=== PATIENT | female | born 1955 | race African-American/Black ===

== ENCOUNTER 2018-01-23 13:29 | Emergency (ER) | payer OTHER ==
[2018-01-23 13:47] VITALS: TEMP 98.4; BMI 35.8
--- NOTE | 2018-01-23 15:01 | PDOC ---
History of Present Illness - General History Source: Patient, Family Exam Limitations: No Limitations - History of Present Illness Initial Comments: 01/23/18 17:00 Patient is a 62 year old female with a significant past medical history of hypertension, hyperlipidemia, AODM, bowel obstruction in 2004 status post surgery, course complicated with an OH, CAD status post CABG 4 vessel, in 2003, complicated by sternal wound infection and repeat sternotomy who presents to the ED with complaints of bilateral upper extremity and lower extremity edema that began 1 week ago. As per patient's daughter, patient began to complain of bilateral hand swelling and pain yesterday afternoon as well as this morning, prompting her to bring the patient into the ED for further evaluation. Denies chest pain, Sob. Denies nausea, vomiting. Denies fevers, chills. Denies contact with a sick contact, out of state travelling. Denies diarrhea, constipation, dysuria, hematuria. Denies any other symptoms. Allergies: None Social history: No smoking, No alcohol. No illicit drugs. Surgical history: 4 bypass cardiac, Gastric obstruction. PMD: Dr. Terrell Mustafa. <Von Mendoza - Last Filed: 01/23/18 17:00> <Cl Martin - Last Filed: 01/23/18 17:44> - General Chief Complaint: Edema Stated Complaint: DIZZINESS, SWOLLEN HANDS Time Seen by Provider: 01/23/18 14:32 Past History <Von Mendoza - Last Filed: 01/23/18 17:00> - Past Medical History Cardiac Disorders: Yes (CABG) COPD: No Diabetes: Yes GI Disorders: Yes (BOWEL OBSTRUCTION) HTN: Yes Hypercholesterolemia: Yes - Surgical History Abdominal Surgery: Yes (OBSTRUCTION) Cardiac Surgery: Yes (4 BYPASS) - Suicide/Smoking/Psychosocial Hx Smoking History: Former smoker Have you smoked in the past 12 months: No If you are a former smoker, when did you quit?: 8 YEARS Information on smoking cessation initiated: No Hx Alcohol Use: No Drug/Substance Use Hx: No Substance Use Type: None <Cl Martin - Last Filed: 01/23/18 17:44> - Past Medical History Allergies/Adverse Reactions: Allergies Allergy/AdvReac Type Severity Reaction Status Date / Time No Known Allergies Allergy Verified 01/23/18 13:38 Home Medications: Ambulatory Orders Furosemide [Lasix -] 20 mg PO DAILY 05/23/14 Rosuvastatin Calcium [Crestor] 20 mg PO DAILY 05/23/14 Metformin HCl [Glucophage] 1,000 mg PO BID 09/25/16 Olmesartan Medoxomil [Benicar -] 20 mg PO DAILY 09/25/16 Acetaminophen [Tylenol .Regular Strength -] 650 mg PO Q6H PRN #0 tablet Insulin Sliding Scale [Novolog Vial Sliding Scale -] 1 vial SQ ACHS units 09/27 Aspirin [Aspirin EC] 81 mg PO DAILY 01/23/18 Furosemide [Lasix] 20 mg PO DAILY #15 tablet 01/23/18 Insulin (Levemir) [Levemir Flexpen -] 40 units SQ BID 01/23/18 Insulin Degludec [Tresiba Flextouch U-100] 40 units SQ BID 01/23/18 Insulin Glargine,Hum.rec.anlog [Lantus Solostar PEN -] 30 units SQ TID 01/23/18 Nifedipine [Procardia Xl] 30 mg PO DAILY 01/23/18 Pregabalin [Lyrica -] 50 mg PO TID 01/23/18 Review of Systems - Review of Systems Able to Perform ROS?: Yes Comments:: 01/23/18 17:00 ROS: A complete review of 10 out of 10 review of systems is taken and is negative apart from what is previously mentioned below and in the HPI. <Von Mendoza - Last Filed: 01/23/18 17:00> *Physical Exam - Vital Signs Last Vital Signs Temp Pulse Resp BP Pulse Ox 98.4 F 71 18 128/94 100 01/23/18 13:38 01/23/18 16:26 01/23/18 16:26 01/23/18 16:26 01/23/18 16:26 - Physical Exam Comments: 01/23/18 17:00 Vitals: Triage Vital signs reviewed General Appearance: no acute distress, well nourished well developed Head: Atraumatic Eyes: Pupils equal reactive round, extraocular movement intact Ears: TMs normal bilaterally Nose: Nares patent bilaterally; no nasal congestion Throat: Posterior oropharynx without erythema, mucous membranes moist Neck: Supple; No Nuchal rigidity Chest Wall: Nontender Cardiac: Regular rate and rhythm, no murmurs, no rubs, no gallops Lungs: Clear to auscultation bilateral, good air movement bilaterally Abdomen: Soft, non distended, normal bowel sounds, non tender to palpation Genitourinary: Rectal: Exam deferred Extremities: +Moderate 2+ pitting edema. Full range of motion to all extremities, no cyanosis, clubbing, Skin: Warm and dry, no rashes or lesions, no rash, no petechiae Neuro: AOX3; Cranial Nerves 2-12 grossly intact, Strength intact to all extremities, Sensation intact to all extremities, gait normal Psych: Normal mood, normal affect <Von Mendoza - Last Filed: 01/23/18 17:00> - Vital Signs Last Vital Signs Temp Pulse Resp BP Pulse Ox 98.4 F 90 20 98 01/23/18 13:38 01/23/18 13:38 01/23/18 13:38 01/23/18 13:38 01/23/18 13:38 <Cl Martin - Last Filed: 01/23/18 17:44> Heart Score/ECG Review - ECG Impressions Comment:: 01/23/18 15:43 Sinus rhythm T-wave inversions laterally no ST elevations <Cl Martin - Last Filed: 01/23/18 17:44> ED Treatment Course - LABORATORY CBC & Chemistry Diagram: 01/23/18 15:16 01/23/18 15:16 - ADDITIONAL ORDERS Additional order review: Laboratory Results 01/23/18 15:16 Sodium 140 Potassium 3.9 Chloride 105 Carbon Dioxide 30 Anion Gap 5 L BUN 17 Creatinine 0.9 Random Glucose 158 H Calcium 9.2 B-Natriuretic Peptide 62.91 01/23/18 15:16 RBC 4.59 MCV 86.8 MCHC 34.2 RDW 13.8 MPV 8.3 Neutrophils % 58.7 Lymphocytes % 30.9 Monocytes % 7.1 Eosinophils % 2.5 Basophils % 0.8 <Von Mendoza - Last Filed: 01/23/18 17:00> - LABORATORY CBC & Chemistry Diagram: 01/23/18 15:16 01/23/18 15:16 <Cl Martin - Last Filed: 01/23/18 17:44> Medical Decision Making - Medical Decision Making 62 years old past medical significant for hypertension hyperlipidemia OH CAD status post CABG with mild CHF presents with several day history of mild hand swelling lower extremity swelling in the context of running out of her Lasix. She had very nonspecific seconds of chest discomfort yesterday Here in the emergency department she is well-appearing in no apparent distress. We will obtain EKG troponin BNP labs and reassess EKG demonstrates T-wave inversions laterally there are no changes noted in comparison to an EKG performed August 2016 Although her BNP is normal I believe her symptomatology to be secondary to mild fluid retention secondary to being off her Lasix Her troponin is negative she is otherwise asymptomatic We'll double her Lasix dose today and tomorrow I will prescribe a two-week prescription for Lasix as she has ran out and advised her to follow-up with her doctor next week. She will return to the emergency department for any severe returning or worsening chest pain Findings, the need for follow-up, strict return instructions discussed with patient. <Cl Martin - Last Filed: 01/23/18 17:44> *DC/Admit/Observation/Transfer - Attestations Scribe Attestion: 01/23/18 17:01 Documentation prepared by Von Mendoza, acting as certified court/medical interpreter for Cl Martin MD, /DO. <Von Mendoza - Last Filed: 01/23/18 17:00> - Discharge Dispostion Admit: No <Cl Martin - Last Filed: 01/23/18 17:44> Diagnosis at time of Disposition: Hand swelling Qualifiers: Laterality: bilateral Qualified Code(s): M79.89 - Other specified soft tissue disorders - Prescriptions Prescriptions: Furosemide [Lasix] 20 mg PO DAILY #15 tablet - Referrals Referrals: Terrell Mustafa MD [Primary Care Provider] -
[2018-01-23 15:50] LABS: BASO % 0.8 % (0-2.0); EOS % 2.5 % (0-4.5); HEMATOCRIT 39.8 % (32.4-45.2); HEMOGLOBIN 13.6 GM/dL (10.7-15.3); LYMPH % 30.9 % (8-40); MCH 29.7 pg (25.7-33.7); MCHC 34.2 g/dl (32.0-36.0); MEAN CELL VOLUME 86.8 fl (80-96); MEAN PLT VOLUME 8.3 fl (7.5-11.1); MONO % 7.1 % (3.8-10.2); NEUT % 58.7 % (42.8-82.8); PLATELET COUNT 216 K/MM3 (134-434); RBC 4.59 M/mm3 (3.60-5.2); RDW 13.8 % (11.6-15.6); WHITE BLOOD COUNT 6.7 K/mm3 (4.0-10.0)
[2018-01-23 16:16] LABS: ANION GAP 5 (8-16); BLOOD UREA NITROGEN 17 mg/dL (7-18); CALCIUM 9.2 mg/dL (8.5-10.1); CHLORIDE 105 mmol/L (98-107); CO2 30 mmol/L (21-32); CREATININE 0.9 mg/dL (0.55-1.02); GLUCOSE,RANDOM 158 mg/dL (74-106); SODIUM 140 mmol/L (136-145)
[2018-01-23 16:18] LABS: N-TERMINAL BNP 62.91 pg/ml (5-125)
[2018-01-23 16:27] VITALS: BP 128/94; PULSE 71
[2018-01-23 16:52] LABS: POTASSIUM 3.9 mmol/L (3.5-5.1)
[2018-01-23] MEDS ORDERED: FUROSEMIDE 40 MG TABLET (FP) PO ONE (17:37)
[2018-01-23] MEDS ORDERED: FUROSEMIDE 40 MG TABLET (FP) ONE (17:45)
--- NOTE | 2018-01-27 11:44 | EKG ---
Test Reason : Blood Pressure : / mmHG Vent. Rate : 074 BPM Atrial Rate : 074 BPM P-R Int : 162 ms QRS Dur : 094 ms QT Int : 424 ms P-R-T Axes : 050 024 107 degrees QTc Int : 470 ms NORMAL SINUS RHYTHM T WAVE ABNORMALITY, CONSIDER LATERAL ISCHEMIA PROLONGED QT ABNORMAL ECG WHEN COMPARED WITH ECG OF 23-MAY-2014 11:53, NO SIGNIFICANT CHANGE WAS FOUND Confirmed by MD Juan, Sam ([id number]) on 01/27/2018 11:44:01 AM Referred By: Confirmed By:Sam Martinez MD
== END 2018-01-23 17:55 | disposition home or self-care (01) ==
LOC: JER 13:29
DX: M79.89 Other specified soft tissue disorders (principal); I10 Essential (primary) hypertension; E78.5 Hyperlipidemia, unspecified
CPT/HCPCS: 36415; 80048; 83880; 84484; 85025; 93005; 93010; 99281-25

== ENCOUNTER 2019-03-10 12:02 | Inpatient (IN) | payer OTHER ==
[2019-03-10 12:22] VITALS: BMI 36.6
--- NOTE | 2019-03-10 12:34 | PDOC ---
History of Present Illness - General Chief Complaint: Pain Stated Complaint: LOWER BACK PAIN SINCE THIS AM WITH URINARY HESITA Time Seen by Provider: 03/10/19 12:23 History Source: Patient Exam Limitations: No Limitations - History of Present Illness Initial Comments: 03/10/19 13:06 HPI 63y F CAD s/p CABG, IDDM, HTN, HL, hx of bowel obstruction in 2003 s/p resection , course complicated with an IN, CAD status post CABG 4 vessel, in 2003, complicated by sternal wound infection and repeat sternotomy presenting with acute onset of diffuse abdominal pain and mid back pain since today at 12pm. Denies trauma, but she was cleaning the house this morning and moving objects. +diffuse abdominal pain, described as sharp, nonradiating, +nausea; no vomiting or diarrhea. +constipation and no flatus, last BM 3 days ago, which was hard and brown. Denies alleviating or exacerbating factors. She also notes middle back pain, worse with movement and bending. Denies fever, chills, chest pain, SOB, palpitation, dizziness, weakness, V, D, leg swelling, No sick contacts or travel. No new changes in medications. No suspicious food intake Allergies: None Past Medical History: CAD s/p CABG, IDDM, HTN, HL, hx of bowel obstruction in 2003 s/p resection, course complicated with an IN, CAD status post CABG 4 vessel , in 2003, complicated by sternal wound infection and repeat sternotomy Social history: Lives with family. No tobacco, ETOH or drug use. Surgical history: 4 bypass cardiac, Gastric obstruction s/p resection Meds: as documented in EMR PMD: Dr Jose Schwartz Review of systems Constitutional: no fevers or chills. HEENT: no headache or dizziness. +nasal congestion. CVS: no cp or syncope. Resp: no sob. No cough. Gastrointestinal: +abdominal pain and nausea, +constipation. No diarrhea or bloody stools Genitourinary: no urinary sx, hematuria. MUSCULOSKELETAL: No joint pain and swelling. No neck pain,. +back pain. SKIN: no redness or skin changes, no discharge, no rash. No wounds. Hematologic: no easy bruising/bleeding. NEUROLOGIC: No headache, dizziness, LOC or altered mental status. No weakness, numbness or tingling. Psych: no anxiety or depression Allergic/Immunologic: no allergies All other systems reviewed and negative, or as documented in HPI. Physical exam: General: Well appearing, awake and alert, NAD. HEENT: NCAT, PERRL, EOMI, clear conjunctiva, anicteric, clear oropharynx, no oral lesions.. Neck: neck supple, FROM Resp: CTAB, normal and even respirations, no respiratory distress CVS: RRR, no murmurs, 2+ peripheral pulses throughout, no peripheral edema Chest: midline sternotomy scar, healed Abdomen: soft, obese, diffusely tenderness. Midline vertical surgical scar healed, +ventral and umbilical hernia, reducible and soft, tender to palpation, no skin changes or e/o incarceration.. Back: +mid thoracic back TTP, normal inspection and ROM, no CVAT. MSK: no edema, MILLER x4, ROM intact. No clubbing or cyanosis. normal bulk and tone. Neuro: alert, no focal neuro deficits. Skin: warm and well perfused, cap refill <2 sec, normal color 03/10/19 17:55 03/10/19 17:56 Past History - Past Medical History Allergies/Adverse Reactions: Allergies Allergy/AdvReac Type Severity Reaction Status Date / Time No Known Allergies Allergy Verified 03/10/19 21:25 Home Medications: Ambulatory Orders Aspirin 81 mg PO DAILY 03/10/19 Atorvastatin Ca [Lipitor] 40 mg PO HS 03/10/19 Furosemide [Lasix] 20 mg PO DAILY 03/10/19 Insulin Glargine,Hum.rec.anlog [Toujeo Solostar] 20 unit SQ DAILY 03/10/19 Metformin HCl [Metformin HCl ER] 500 mg PO BID 03/10/19 Olmesartan/Hydrochlorothiazide [Olmesartan-Hctz 20-12.5 mg Tab] 1 each PO DAILY 03/10/19 Semaglutide [Ozempic] 0.25 mg SQ WEEKLY 03/10/19 Docusate Sodium [Colace -] 100 mg PO BID #60 capsule 03/15/19 Cardiac Disorders: Yes (CABG 3 VESSELS) COPD: No Diabetes: Yes GI Disorders: Yes (BOWEL OBSTRUCTION) HTN: Yes Hypercholesterolemia: Yes - Surgical History Abdominal Surgery: Yes (OBSTRUCTION) Cardiac Surgery: Yes (3 BYPASS) - Suicide/Smoking/Psychosocial Hx Smoking History: Never smoked Have you smoked in the past 12 months: No If you are a former smoker, when did you quit?: 8 YEARS Information on smoking cessation initiated: No Hx Alcohol Use: Yes (RARE) Drug/Substance Use Hx: No Substance Use Type: None *Physical Exam - Vital Signs Last Vital Signs Temp Pulse Resp BP Pulse Ox 97.8 F 81 18 166/85 97 03/10/19 12:03 03/10/19 12:03 03/10/19 12:03 03/10/19 12:03 03/10/19 12:03 ED Treatment Course - LABORATORY CBC & Chemistry Diagram: 03/15/19 06:00 03/15/19 06:00 Medical Decision Making - Medical Decision Making 03/10/19 13:23 hpi as documented VS wnl, reviewed DDx abdominal pain: Renal colic, biliary colic, metabolic/electrolyte derangements. GERD, PUD, esophageal spasm, pancreatitis, hepatitis, constipation , colitis, gastroenteritis, cholecystitis, UTI, pyelonephritis, ileus, SBO, medication side effect, hernia, appendicitis, diverticulitis, mesenteric ischemia, AAA. meds given in the ED: IVF, analgesia, antiemetic, PO contrast due to bowel altering surgery in the past. tolerating PO contrast, no episodes of emesis. labs and lytes normal, normal wbc ct. K mildly low 3.4, repleted. lactic normal less likely ischemic process UA with nitrites and rocío with UTI/infection, f/u cultures, likely E coli 'UTI treated with ceftriaxone for now. no prior urine culture or sensitivities analgesia and GI cocktail given, IVF left EJ placed by tx for IV access. USGIV infiltrated prior to CT imaging. CT a/p to eval for abdominal pathology, infection. ventral hernia noted, dilated small bowel loops. up to 2.6cm, borderline for obstruction. ventral hernia defect noted, with bowel entering the sac. moderate stool in the colon, no free air or fluid; dilated CBD post surg delayed CT recommended with the pO contrast. repeat CT pending, awaiting tech spoke with Dr Hassan, supervisor photocomposition for Dr Schwartz, does not admit to [facility]. [facility] and contacted Dr Aguilar for surg cs for suspected ventral hernia/partial SBO with repeat PO contrast imaging keep npo, bowel rest, serial exams and consultation no ngt for now, no vomiting dispo: admit for partial SBO, ventral /incisional hernia defect, surg cs, serial exams, analgesia and UTI admitting to hospitalist service at , Dr Lainez service. s/o LINDA Hernandez. 03/10/19 19:09 03/10/19 19:15 03/10/19 19:23 03/16/19 12:24 *DC/Admit/Observation/Transfer Diagnosis at time of Disposition: Acute UTI (urinary tract infection), SBO (small bowel obstruction), Ventral hernia - Discharge Dispostion Condition at time of disposition: Stable Decision to Admit order: Yes Decision to Admit order Date/Time: 03/10/19 19:09 Decision to Admit Order Category Date Time Status Decision to Admit to Hospital Routine Admission 03/10/19 18:11 Active - Referrals - Patient Instructions - Post Discharge Activity
[2019-03-10] MEDS ORDERED: ACETAMINOPHEN 1000 MG/100 ML VIAL (NON FORMULARY) IVPB ONE (12:37)
[2019-03-10] MEDS ORDERED: FAMOTIDINE 20 MG/50 ML IVPB 20 MG/50 ML MG IVPB ONE ×2 (12:37→13:19)
[2019-03-10] MEDS ORDERED: SODIUM CHLORIDE 1,000 ML IV STA (12:37)
[2019-03-10] MEDS ORDERED: ONDANSETRON 4 MG/2 ML VIAL IVPUSH ONE (12:38)
[2019-03-10] MEDS ORDERED: ACETAMINOPHEN INJECTION 100 ML IVPB ONE (13:19)
[2019-03-10] MEDS ORDERED: ONDANSETRON 4 MG/2 ML VIAL ONE (13:19)
[2019-03-10 14:34] LABS: ALBUMIN 4.2 g/dl (3.4-5.0); ALK PHOS 70 U/L (45-117); ANION GAP 9 MMOL/L (8-16); BILIRUBIN,TOTAL 0.9 mg/dl (0.2-1); BLOOD UREA NITROGEN 19 mg/dl (7-18); CALCIUM 9.6 mg/dl (8.5-10); CHLORIDE 101 mmol/L (98-107); CO2 28 mmol/L (21-32); CREATININE 0.9 mg/dl (0.55-1.3); GLUCOSE,RANDOM 127 mg/dl (74-106); POTASSIUM 3.4 mmol/L (3.5-5.1); SGOT/AST 24 U/L (15-37); SGPT/ALT 20 U/L (13-61); SODIUM 138 mmol/L (136-145); TOT PROT 7.2 g/dl (6.4-8.2)
[2019-03-10 14:40] LABS: BASO % 0.3 % (0-2.0); EOS % 2.1 % (0-4.5); HEMATOCRIT 41.6 % (32.4-45.2); HEMOGLOBIN 13.5 GM/dl (10.7-15.3); MCH 29.1 pg (25.7-33.7); MCHC 32.5 g/dl (32.0-36.0); MEAN CELL VOLUME 89.5 fl (80-96); MEAN PLT VOLUME 8.6 fl (7.5-11.1); MONO % 6.1 % (3.8-10.2); NEUT % 71.5 % (42.8-82.8); PLATELET COUNT 203 K/MM3 (134-434); RBC 4.64 M/mm3 (3.60-5.2); RDW 12.2 % (11.6-15.6)
[2019-03-10] MEDS ORDERED: POTASSIUM CHLORIDE TABS 20 MEQ TABLET.ER (FP) PO ONE ×2 (14:51→15:50)
[2019-03-10] MEDS ORDERED: CEFTRIAXONE 1,000 MG in DEXTROSE 5%-WATER - 50 ML IVPB ONE ×2 (16:51→19:07)
[2019-03-10 16:53] LABS: LIPASE 43 U/L (73-393)
[2019-03-10] MEDS ORDERED: CEPHALEXIN MONOHYDRATE 500 MG CAPSULE (UD) PO ONE (17:33)
[2019-03-10] MEDS ORDERED: CEPHALEXIN MONOHYDRATE 500 MG CAPSULE (UD) ONE (17:42)
[2019-03-10] MEDS ORDERED: cefTRIAXone SODIUM 1 GM VIAL ONE (19:09)
[2019-03-10] MEDS ORDERED: SODIUM CHLORIDE 1,000 ML IV SCH (19:45)
[2019-03-10] MEDS ORDERED: cloNIDine HCL 0.1 MG TABLET PO ONE (19:57)
--- NOTE | 2019-03-10 20:02 | HOSP ---
Subjective - Review of Symptoms Events since last encounter: Spoke with Dr. Gasca. Patient has possible SBO and dilated CBD and may need MRCP /ERCP according to initial CT read by Dr. Guerrero. [facility] has no GI coverage at this time and no OR until the morning. Patient needs to be transferred to [facility]. Physical Examination Vital Signs: Vital Signs Temperature 98.3 F 03/10/19 19:35 Pulse Rate 75 03/10/19 19:35 Respiratory Rate 18 03/10/19 19:35 Blood Pressure 216/95 H 03/10/19 19:35 O2 Sat by Pulse Oximetry (%) 99 03/10/19 19:35 Labs: CBC, BMP 03/10/19 14:05 03/10/19 14:00
[2019-03-10 20:22] LABS: EPITHELIAL CELLS FEW /hpf
--- NOTE | 2019-03-10 20:24 | CONSULT ---
Consult Consult Specialty:: General Surgery Reason for Consultation:: SBO? - History of Present Illness Chief Complaint: abdominal pain History of Present Illness: 63yo female PMH CAD s/p CABG, IDDM, HTN, HLD, Chronic abdominal pain and constipation, ventral incsional hernia since exploratory laparotomy in 2003 for reported bowel obstruction at [facility] in [place], [place], CAD status post CABG 4 vessel, in 2003, complicated by sternal wound infection and repeat sternotomy presenting with acute onset of diffuse abdominal pain and mid back pain since today at 12pm. Denies trauma, but she was cleaning the house this morning and moving objects. Abdominal pain, described as sharp, focal to the umbilcus and midline incisonal hernia, nonradiating, +nausea; no vomiting or diarrhea. + constipation and no flatus, last BM 3 days ago, which was hard and brown. Denies alleviating or exacerbating factors. She also notes middle back pain, worse with movement and bending. we were asked to assess. - History Source History Provided By: Patient, Medical Record Limitations to Obtaining History: No Limitations - Past Medical History Cardio/Vascular: Yes: CAD, HTN, HI, Hyperlipdemia, Other Gastrointestinal: Yes: Other (SBO s/p surgical resection 2003 [facility]) Infectious Disease: Yes: Other (sternal wound infection 2003) Endocrine: Yes: Diabetes Mellitus - Past Surgical History Past Surgical History: Yes: CABG - Alcohol/Substance Use Hx Alcohol Use: Yes (RARE) - Smoking History Smoking history: Never smoked Have you smoked in the past 12 months: No If you are a former smoker, when did you quit?: 8 YEARS - Social History ADL: Independent History of Recent Travel: No Home Medications - Allergies Allergies/Adverse Reactions: Allergies Allergy/AdvReac Type Severity Reaction Status Date / Time No Known Allergies Allergy Verified 03/06/18 14:06 - Home Medications Home Medications: Ambulatory Orders Aspirin 81 mg PO DAILY 03/10/19 Atorvastatin Ca [Lipitor] 40 mg PO HS 03/10/19 Furosemide [Lasix] 20 mg PO DAILY 03/10/19 Insulin Glargine,Hum.rec.anlog [Ivan Solostar] 20 unit SQ DAILY 03/10/19 Metformin HCl [Metformin HCl ER] 500 mg PO BID 03/10/19 Olmesartan/Hydrochlorothiazide [Olmesartan-Hctz 20-12.5 mg Tab] 1 each PO DAILY 03/10/19 Semaglutide [Ozempic] 0.25 mg SQ WEEKLY 03/10/19 Review of Systems - Review of Systems Constitutional: denies: Chills, Fever, Malaise Eyes: denies: Blind Spots, Recent Change in Vision HENT: denies: Difficult Swallowing, Throat Pain Neck: denies: Pain on Movement, Tenderness Cardiovascular: denies: Chest Pain, Palpitations Respiratory: denies: Cough, SOB Gastrointestinal: reports: Abdominal Pain, Bloating, Constipation, Nausea. denies: Diarrhea, Vomiting Genitourinary: denies: Burning, Discharge, Dysuria Breasts: reports: No Symptoms Reported. denies: Pain Musculoskeletal: denies: Extremity Pain, Muscle Cramps Integumentary: denies: Erythema, Rash, Wound Neurological: denies: Seizure, Syncope Endocrine: denies: Unexplained Weight Gain, Unexplained Weight Loss Hematology/Lymphatic: denies: Easily Bruised, Excessive Bleeding Psychiatric: denies: Anxiety, Depression Physical Exam Vital Signs: Vital Signs Temperature 98.3 F 03/10/19 19:35 Pulse Rate 78 03/10/19 19:57 Respiratory Rate 18 03/10/19 19:57 Blood Pressure 243/112 H 03/10/19 19:57 O2 Sat by Pulse Oximetry (%) 98 03/10/19 19:57 Constitutional: Yes: No Distress, Calm, Obese Eyes: Yes: Conjunctiva Clear, EOM Intact HENT: Yes: Atraumatic, Normocephalic Neck: Yes: Supple, Trachea Midline Cardiovascular: Yes: Regular Rate and Rhythm, S1, S2 Respiratory: Yes: Regular, CTA Bilaterally Gastrointestinal: Yes: Normal Bowel Sounds, Soft, Abdomen, Obese, Hernia ( midline periumbilical incsional hernia, tender but reducible), Tenderness Renal/: No: CVA Tenderness - Left, CVA Tenderness - Right Breast(s): No: Discharge from Nipple, Nipple Inversion Musculoskeletal: No: Muscle Pain, Muscle Weakness Extremities: No: Cool, Cyanosis Edema: No Peripheral Pulses WNL: Yes Integumentary: No: Incision, Jaundice, Venous Stasis Changes Wound/Incision: Yes: Clean/Dry, Well Approximated Neurological: Yes: Alert, Oriented Psychiatric: Yes: Alert, Oriented Labs: CBC, BMP 03/10/19 14:05 03/10/19 14:00 Imaging - Results Cat Scan: Report Reviewed, Image Reviewed (Contrast is clear transiting the bowel in the hernia and can be seen in small caliber loops of small intestines distal to the hernia) Problem List - Problems (1) Incisional hernia of anterior abdominal wall with obstruction Assessment/Plan: 63yo female MMP andominal pain, constipation, long standing incisional hernia after abdominal surgeries, with SBO on imaging. no peritonitis on exam, reducible hernia with some discomfort. No leukocytosis, no peritonitis. Favor obsrervation and serial exams. No emergency surgical intervention at this time. NPO and IVF hydration NGT decompression repeat labs adequate analgesia Agree with delayed CT scan serial exams repeat abd xray in AM GI for bowel regimen for contipation (only on colace) and screening colonoscopy will follow Code(s): K43.0 - INCISIONAL HERNIA WITH OBSTRUCTION, WITHOUT GANGRENE (2) Constipation Code(s): K59.00 - CONSTIPATION, UNSPECIFIED (3) Obesity (BMI 30-39.9) Code(s): E66.9 - OBESITY, UNSPECIFIED (4) SBO (small bowel obstruction) Code(s): K56.609 - UNSP INTESTNL OBST, UNSP TO PARTIAL VERSUS COMPLETE OBST (5) Diabetes Code(s): E11.9 - TYPE 2 DIABETES MELLITUS WITHOUT COMPLICATIONS (6) Hypertension Code(s): I10 - ESSENTIAL (PRIMARY) HYPERTENSION
--- NOTE | 2019-03-11 03:51 | HP ---
CHIEF COMPLAINT: abdominal pain for 2 days PCP: HISTORY OF PRESENT ILLNESS: 63 year old female with PMH of SC/CAD s/p CABG X4 in 2003 complicated by sternal wound infection and repeat sternotomy,IDDM, HTN, HLD, chronic abdominal pain and constipation, ventral incsional hernia since exploratory laparotomy in 2003 for reported bowel obstruction at [facility], who presented to [facility] with acute onset of diffuse abdominal pain and mid back pain. She denied fever, chest pain or shortness of breath. She was transferred to [facility] for a SBO. She was seen by Surgery and she is currently NPO and recommended NG tube for decompression. No surgical interventions recommended at this time. She is awaiting a GI consultation. She was also found to have a UTI and received a dose of IV ceftriaxone. She was admitted for further medical management. Recent Travel: denies PAST MEDICAL HISTORY: hyperlipidemia diabetes mellitus PAST SURGICAL HISTORY: CABG X4 in 2003 in [facility] ventral incsional hernia since exploratory laparotomy in 2003 for reported bowel obstruction at [facility] Social History: Smoking:denies Alcohol:denies Drugs: denies Family History: noncontributory Allergies No Known Allergies Allergy (Verified 03/10/19 21:25) HOME MEDICATIONS: Home Medications Medication Instructions Recorded Aspirin 81 mg PO DAILY 03/10/19 Atorvastatin Ca [Lipitor] 40 mg PO HS 03/10/19 Furosemide [Lasix] 20 mg PO DAILY 03/10/19 Insulin Glargine,Hum.rec.anlog 20 unit SQ DAILY 03/10/19 [Ivan Simons] Metformin HCl [Metformin HCl ER] 500 mg PO BID 03/10/19 Olmesartan/Hydrochlorothiazide 1 each PO DAILY 03/10/19 [Olmesartan-Hctz 20-12.5 mg Tab] Semaglutide [Ozempic] 0.25 mg SQ WEEKLY 03/10/19 REVIEW OF SYSTEMS CONSTITUTIONAL: Absent: fever, chills, diaphoresis, generalized weakness, malaise, loss of appetite, weight change HEENT: Absent: rhinorrhea, nasal congestion, throat pain, throat swelling, difficulty swallowing, mouth swelling, ear pain, eye pain, visual changes CARDIOVASCULAR: Absent: chest pain, syncope, palpitations, irregular heart rate, lightheadedness , peripheral edema RESPIRATORY: Absent: cough, shortness of breath, dyspnea with exertion, orthopnea, wheezing, stridor, hemoptysis GASTROINTESTINAL: Absent: abdominal pain, abdominal distension, nausea, vomiting, diarrhea, constipation, melena, hematochezia GENITOURINARY: Absent: dysuria, frequency, urgency, hesitancy, hematuria, flank pain, genital pain MUSCULOSKELETAL: Absent: myalgia, arthralgia, joint swelling, back pain, neck pain SKIN: Absent: rash, itching, pallor HEMATOLOGIC/IMMUNOLOGIC: Absent: easy bleeding, easy bruising, lymphadenopathy, frequent infections ENDOCRINE: Absent: unexplained weight gain, unexplained weight loss, heat intolerance, cold intolerance NEUROLOGIC: Absent: headache, focal weakness or paresthesias, dizziness, unsteady gait, seizure, mental status changes, bladder or bowel incontinence PSYCHIATRIC: Absent: anxiety, depression, suicidal or homicidal ideation, hallucinations. PHYSICAL EXAMINATION Vital Signs - 24 hr 03/10/19 03/10/19 03/10/19 12:03 16:40 19:35 Temperature 97.8 F 98.3 F Pulse Rate 81 Pulse Rate [ 74 75 Right Radial] Respiratory 18 18 18 Rate Blood Pressure 166/85 Blood Pressure 194/87 H 216/95 H [Right Arm] O2 Sat by Pulse 97 98 99 Oximetry (%) 03/10/19 03/10/19 03/10/19 19:57 20:55 21:56 Temperature 98.5 F Pulse Rate Pulse Rate [ 78 72 72 Right Radial] Respiratory 18 16 18 Rate Blood Pressure Blood Pressure 243/112 H 194/89 H 188/100 H [Right Arm] O2 Sat by Pulse 98 98 98 Oximetry (%) 03/10/19 03/10/19 23:08 23:45 Temperature 97.5 F L Pulse Rate 74 Pulse Rate [ 77 Right Radial] Respiratory 18 20 Rate Blood Pressure 111/59 L Blood Pressure 156/78 [Right Arm] O2 Sat by Pulse 99 98 Oximetry (%) GENERAL: awake, alert, and fully oriented, in no acute distress. HEAD: normal with no signs of trauma. EYES: pupils equal, round and reactive to light NECK: normal range of motion, supple LUNGS: breath sounds equal, clear to auscultation bilaterally no wheezes and no crackles no accessory muscle use HEART: regular rate and rhythm, normal S1 and S2 ABDOMEN: no acute abdomen slightly tender on palpation MUSCULOSKELETAL: normal range of motion at all joints UPPER EXTREMITIES: 2+ pulses warm well-perfused no cyanosis no clubbing no peripheral edema LOWER EXTREMITIES: 2+ pulses warm well-perfused no calf tenderness NEUROLOGICAL: normal speech PSYCHIATRIC: cooperative. SKIN: warm, dry, normal turgor, no rashes or lesions noted, normal capillary refill. Laboratory Results - last 24 hr 03/10/19 03/10/19 03/10/19 14:00 14:00 14:05 WBC 7.0 RBC 4.64 Hgb 13.5 Hct 41.6 MCV 89.5 MCH 29.1 MCHC 32.5 RDW 12.2 Plt Count 203 MPV 8.6 Absolute Neuts (auto) 5.1 Neutrophils % 71.5 Lymphocytes % 20.0 Monocytes % 6.1 Eosinophils % 2.1 Basophils % 0.3 Sodium 138 Potassium 3.4 L Chloride 101 Carbon Dioxide 28 Anion Gap 9 BUN 19 H Creatinine 0.9 Creat Clearance w eGFR 62.84 Random Glucose 127 H Lactic Acid 0.9 Calcium 9.6 Total Bilirubin 0.9 AST 24 ALT 20 Alkaline Phosphatase 70 Total Protein 7.2 Albumin 4.2 Lipase 43 L Urine Color Urine Appearance Urine pH Urine Protein Urine Glucose (UA) Urine Ketones Urine Blood Urine Nitrite Urine Bilirubin Urine Urobilinogen Ur Leukocyte Esterase Urine RBC Urine WBC Ur Transition Epith Cell Urine Bacteria 03/10/19 15:45 WBC RBC Hgb Hct MCV MCH MCHC RDW Plt Count MPV Absolute Neuts (auto) Neutrophils % Lymphocytes % Monocytes % Eosinophils % Basophils % Sodium Potassium Chloride Carbon Dioxide Anion Gap BUN Creatinine Creat Clearance w eGFR Random Glucose Lactic Acid Calcium Total Bilirubin AST ALT Alkaline Phosphatase Total Protein Albumin Lipase Urine Color Yellow Urine Appearance Clear Urine pH 7.0 Urine Protein Negative Urine Glucose (UA) Negative Urine Ketones Negative Urine Blood Negative Urine Nitrite Positive H Urine Bilirubin Negative Urine Urobilinogen 0.2 Ur Leukocyte Esterase 1+ Urine RBC 0-2 Urine WBC 20-40 Ur Transition Epith Cell Few Urine Bacteria Moderate ASSESSMENT/PLAN: 63 year old female with a past medical history of SC/CAD s/p CABG X4 in 2003 complicated by sternal wound infection and repeat sternotomy, IDDM, hypertension , hyperlipidemia, chronic abdominal pain and constipation, ventral incsional hernia since exploratory laparotomy in 2003 for reported bowel obstruction who presented with acute onset of diffuse abdominal pain and mid back pain. She was found to have a SBO and dilated CBD as seen of CT scan of abdomen. Small Bowel Obstruction Surgery evaluated patient and she is currently NPO, NG tube for decompression and IV fluids NS at 75cc/hr ordered. No surgical interventions recommended at this time. Pending repeat abdominal Xray in am. Continue with colace. Continue with pain management. Pending GI consultation-Dr. Silver. UTI afebrile, WBC and lactic acid normal, received a dose of IV ceftriaxone. Continue with IV ceftriaxone 1gm daily. Urine culture pending. ID consulted- Dr. Soriano. Hypertension Continue with HCTZ 25 mg once daily and lasix 20mg once dialy. CAD Denies anginal symptoms. Continue with aspirin and atorvastatin. Hyperlipidemia Continue with statin therapy. FEN NPO, IVF NS @75cc/hr, monitor electrolytes closely DVT Prophylaxsis SCD's bilaterally Visit type - Emergency Visit Emergency Visit: Yes ED Registration Date: 03/10/19 Care time: The patient presented to the Emergency Department on the above date and was hospitalized for further evaluation of their emergent condition. - New Patient This patient is new to me today: Yes Date on this admission: 03/11/19 - Critical Care Critical Care patient: No
[2019-03-11] MEDS ORDERED: CEFTRIAXONE 1 GM in DEXTROSE 5%-WATER - 50 ML IVPB ONE (05:00)
[2019-03-11] MEDS ORDERED: DEXTROSE 5%-WATER - 50 ML IVPB ONE (05:38)
[2019-03-11] MEDS ORDERED: cefTRIAXone SODIUM 1 GM VIAL ONE (05:38)
[2019-03-11] MEDS: SODIUM CHLORIDE 1,000 ML IV SCH ×2 (06:03→21:05)
[2019-03-11] MEDS: HYDROCHLOROTHIAZIDE 25 MG TABLET (FP) PO SCH (06:03)
[2019-03-11] MEDS ORDERED: INSULIN (LEVEMIR) 100 UNITS/ML UNITS SQ SCH (07:00)
[2019-03-11 07:59] LABS: ANION GAP 5 MMOL/L (8-16); BLOOD UREA NITROGEN 18 mg/dL (7-18); CALCIUM 8.9 mg/dL (8.5-10.1); CHLORIDE 106 mmol/L (98-107); CO2 27 mmol/L (21-32); CREATININE 0.9 mg/dL (0.55-1.3); GLUCOSE,RANDOM 100 mg/dL (74-106); POTASSIUM 4.2 mmol/L (3.5-5.1); SODIUM 138 mmol/L (136-145)
[2019-03-11 08:40] LABS: BASO % 0.5 % (0-2.0); EOS % 3.6 % (0-4.5); HEMATOCRIT 37.9 % (32.4-45.2); HEMOGLOBIN 12.8 GM/dL (10.7-15.3); LYMPH % 28.2 % (8-40); MCH 29.6 pg (25.7-33.7); MCHC 33.9 g/dl (32.0-36.0); MEAN CELL VOLUME 87.2 fl (80-96); MONO % 8.1 % (3.8-10.2); NEUT % 59.6 % (42.8-82.8); PLATELET COUNT 170 K/MM3 (134-434); RBC 4.34 M/mm3 (3.60-5.2); RDW 13.5 % (11.6-15.6); WHITE BLOOD COUNT 4.9 K/mm3 (4.0-10.0)
[2019-03-11] MEDS: DOCUSATE SODIUM 100 MG CAPSULE (FP) PO SCH ×2 (10:16→23:00)
[2019-03-11] MEDS: ASPIRIN 81 MG CHEWABLE TABLETS PO SCH (10:16)
[2019-03-11] MEDS: FUROSEMIDE 20 MG TABLET (FP) PO SCH (10:16)
--- NOTE | 2019-03-11 16:05 | CON.ID ---
Consult Consult Specialty:: infectious diseases Referred by:: hospitalist - History of Present Illness Chief Complaint: abd ruthn History of Present Illness: 63 year old female with PMH of LA/CAD s/p CABG X4 in 2003 complicated by sternal wound infection and repeat sternotomy,IDDM, HTN, HLD, chronic abdominal pain and constipation, ventral incsional hernia since exploratory laparotomy in 2003 for reported bowel obstruction at [facility] in [place], who presented to [facility] with acute onset of diffuse abdominal pain and mid back pain. She denied fever, chest pain or shortness of breath. She was transferred to [facility] for a SBO. patient was seen by surgery and conservative mgmt was planned known h/o of uti and patient was given ceftriaxone, her repeat urine cx are pending,wbc is normal - History Source History Provided By: Patient Limitations to Obtaining History: No Limitations - Past Medical History Cardio/Vascular: Yes: CAD, HTN, [place], Hyperlipdemia, Other Gastrointestinal: Yes: Other (SBO s/p surgical resection 2003 [facility]) Infectious Disease: Yes: Other (sternal wound infection 2003) Endocrine: Yes: Diabetes Mellitus - Past Surgical History Past Surgical History: Yes: CABG - Alcohol/Substance Use Hx Alcohol Use: Yes (RARE) - Smoking History Smoking history: Never smoked Have you smoked in the past 12 months: No If you are a former smoker, when did you quit?: 8 YEARS - Social History ADL: Independent History of Recent Travel: No Home Medications - Allergies Allergies/Adverse Reactions: Allergies Allergy/AdvReac Type Severity Reaction Status Date / Time No Known Allergies Allergy Verified 03/10/19 21:25 - Home Medications Home Medications: Ambulatory Orders Atorvastatin Ca [Lipitor] 40 mg PO HS 03/10/19 Furosemide [Lasix] 20 mg PO DAILY 03/10/19 Insulin Glargine,Hum.rec.anlog [Toujeo Solostar] 20 unit SQ DAILY 03/10/19 Metformin HCl [Metformin HCl ER] 500 mg PO BID 03/10/19 Olmesartan/Hydrochlorothiazide [Olmesartan-Hctz 20-12.5 mg Tab] 1 each PO DAILY 03/10/19 RX: Aspirin 81 mg PO DAILY 03/10/19 Semaglutide [Ozempic] 0.25 mg SQ WEEKLY 03/10/19 Review of Systems - Review of Systems Constitutional: reports: No Symptoms Eyes: reports: No Symptoms HENT: reports: No Symptoms Neck: reports: No Symptoms Cardiovascular: reports: No Symptoms Respiratory: reports: No Symptoms Gastrointestinal: reports: No Symptoms Genitourinary: reports: No Symptoms Musculoskeletal: reports: No Symptoms Integumentary: reports: No Symptoms Neurological: reports: No Symptoms Endocrine: reports: No Symptoms Hematology/Lymphatic: reports: No Symptoms Psychiatric: reports: No Symptoms Physical Exam Vital Signs: Vital Signs Temperature 97.5 F L 03/11/19 14:44 Pulse Rate 58 L 03/11/19 14:44 Respiratory Rate 18 03/11/19 14:44 Blood Pressure 172/79 H 03/11/19 14:44 O2 Sat by Pulse Oximetry (%) 98 03/10/19 23:45 Constitutional: Yes: Well Nourished, No Distress, Calm, Obese Eyes: Yes: Conjunctiva Clear Cardiovascular: Yes: Regular Rate and Rhythm Respiratory: Yes: Regular, CTA Bilaterally Gastrointestinal: Yes: Soft, Hypoactive Bowel Sounds Musculoskeletal: Yes: WNL Extremities: Yes: Other Neurological: Yes: Alert, Oriented, Other (ventral hernia) Psychiatric: Yes: Alert, Oriented Labs: CBC, BMP 03/11/19 08:15 03/11/19 06:30 Imaging - Results Chest X-ray: Report Reviewed, Image Reviewed X-ray: Report Reviewed, Image Reviewed Cat Scan: Report Reviewed, Image Reviewed Assessment/Plan Problem List - Problems (1) Incisional hernia of anterior abdominal wall with obstruction Code(s): K43.0 - INCISIONAL HERNIA WITH OBSTRUCTION, WITHOUT GANGRENE (2) Constipation Code(s): K59.00 - CONSTIPATION, UNSPECIFIED (3) Obesity (BMI 30-39.9) Code(s): E66.9 - OBESITY, UNSPECIFIED (4) SBO (small bowel obstruction) Code(s): K56.609 - UNSP INTESTNL OBST, UNSP TO PARTIAL VERSUS COMPLETE OBST (5) Diabetes Code(s): E11.9 - TYPE 2 DIABETES MELLITUS WITHOUT COMPLICATIONS (6) Hypertension Code(s): I10 - ESSENTIAL (PRIMARY) HYPERTENSION plan will not start any abx at this time monitor carefully surgery on case await for gi rest as per the team
--- NOTE | 2019-03-11 16:38 | EKG ---
Test Reason : Blood Pressure : / mmHG Vent. Rate : 073 BPM Atrial Rate : 073 BPM P-R Int : 172 ms QRS Dur : 086 ms QT Int : 394 ms P-R-T Axes : 056 025 109 degrees QTc Int : 434 ms NORMAL SINUS RHYTHM POSSIBLE LEFT ATRIAL ENLARGEMENT T WAVE ABNORMALITY, CONSIDER LATERAL ISCHEMIA ABNORMAL ECG WHEN COMPARED WITH ECG OF 06-MAR-2018 14:33, NO SIGNIFICANT CHANGE WAS FOUND Confirmed by GILBERTO VELÁSQUEZ, KAYLAH ([id number]) on 03/11/2019 4:38:25 PM Referred By: MD STANFORD Confirmed By:KAYLAH MACIAS MD
--- NOTE | 2019-03-11 16:43 | PN ---
Progress Note, Physician History of Present Illness: 63yo female PMH CAD s/p CABG, IDDM, HTN, HLD, Chronic abdominal pain and constipation, ventral incsional hernia since exploratory laparotomy in 2003 for reported bowel obstruction at [facility] in [place], [place], CAD status post CABG 4 vessel, in 2003, complicated by sternal wound infection and repeat sternotomy presenting with acute onset of diffuse abdominal pain. She has been gradually improving ant report a large BM - Current Medication List Current Medications: Active Medications Aspirin (Asa -) 81 mg PO DAILY [facility] Last Admin: 03/11/19 10:16 Dose: 81 mg Atorvastatin Calcium (Lipitor -) 40 mg PO HS [facility] Docusate Sodium (Colace -) 100 mg PO BID [facility] Last Admin: 03/11/19 10:16 Dose: 100 mg Furosemide (Lasix -) 20 mg PO DAILY [facility] Last Admin: 03/11/19 10:16 Dose: 20 mg Hydrochlorothiazide (Hctz -) 25 mg PO DAILY [facility] Last Admin: 03/11/19 06:03 Dose: 25 mg Sodium Chloride (Normal Saline -) 1,000 mls @ 75 mls/hr IV ASDIR [facility] Last Admin: 03/11/19 06:03 Dose: 75 mls/hr Metformin HCl (Glucophage Xr -) 500 mg PO BIDAC [facility] Last Admin: 03/11/19 06:03 Dose: Not Given - Objective Vital Signs: Vital Signs Temperature 97.5 F L 03/11/19 14:44 Pulse Rate 58 L 03/11/19 14:44 Respiratory Rate 18 03/11/19 14:44 Blood Pressure 172/79 H 03/11/19 14:44 O2 Sat by Pulse Oximetry (%) 98 03/10/19 23:45 Vital Signs Period Temp Pulse Resp BP Sys/Hawk Pulse Ox Last 24 Hr 97.9 F-98.3 F 76-84 18-20 152-184/78-86 Constitutional: Yes: Well Nourished, No Distress, Calm, Obese Eyes: Yes: Conjunctiva Clear, EOM Intact HENT: Yes: Atraumatic, Normocephalic Neck: Yes: Supple, Trachea Midline Cardiovascular: Yes: Regular Rate and Rhythm, S1, S2 Respiratory: Yes: Regular, CTA Bilaterally Gastrointestinal: Yes: Normal Bowel Sounds, Soft, Abdomen, Obese. No: Distention, Tenderness, Tenderness, Epigastrium, Tenderness, Rebound ...Rectal Exam: Yes: Deferred Genitourinary: No: CVA Tenderness - Left, CVA Tenderness - Right Breast(s): No: Discharge from Nipple, Nipple Inversion Musculoskeletal: No: Joint Swelling, Muscle Pain Extremities: No: Cool, Cyanosis Edema: No Peripheral Pulses WNL: Yes Peripheral Pulses: Left Radial: 2+, Right Radial: 2+, Left Doralis Pedis: 2+, Right Dorsalis Pedis: 2+, Left Femoral: 2+, Right Femoral: 2+ Integumentary: No: Jaundice, Laceration Wound/Incision: No: Clean/Dry, Well Approximated Neurological: No: Alert, Oriented Psychiatric: No: Alert, Oriented Labs: CBC, BMP 03/11/19 08:15 03/11/19 06:30 Problem List - Problems (1) Incisional hernia of anterior abdominal wall with obstruction Assessment/Plan: 63yo female MMP andominal pain, constipation, long standing incisional hernia after abdominal surgeries, with SBO on imaging. no peritonitis on exam, reducible hernia with some discomfort. No leukocytosis, no peritonitis. Favor obsrervation and serial exams. No emergency surgical intervention at this time. NPO and IVF hydration NGT decompression repeat labs adequate analgesia Agree with delayed CT scan serial exams repeat abd xray in AM GI for bowel regimen for contipation (only on colace) and screening colonoscopy will follow Code(s): K43.0 - INCISIONAL HERNIA WITH OBSTRUCTION, WITHOUT GANGRENE (2) Constipation Code(s): K59.00 - CONSTIPATION, UNSPECIFIED (3) Obesity (BMI 30-39.9) Code(s): E66.9 - OBESITY, UNSPECIFIED (4) SBO (small bowel obstruction) Code(s): K56.609 - UNSP INTESTNL OBST, UNSP TO PARTIAL VERSUS COMPLETE OBST (5) Diabetes Code(s): E11.9 - TYPE 2 DIABETES MELLITUS WITHOUT COMPLICATIONS (6) Hypertension Code(s): I10 - ESSENTIAL (PRIMARY) HYPERTENSION
--- NOTE | 2019-03-11 20:35 | CON.GI ---
Consult Consult Specialty:: GI Referred by:: Hospitalist service Reason for Consultation:: Small bowel obstruction - History of Present Illness Chief Complaint: Abdominal pain History of Present Illness: 63F seen at [facility] second[facility] to [facility]. Transfer[facility] to [facility] for further care. Noted to have a SBO involving a ventral hernia. There is a thickened loop of bowel there as well. She is being evaluated by surgery. Seen in office 05/18 for screening colonoscopy. Was awaiting medical clearance for procedure as she was in the midst of a cardiac work-up for complaining of generalized swelling / edema. She was not referred back. Refused NGT. Has h/o SBO at [facility] in 2003. No BM as of yet - Past Medical History Cardio/Vascular: Yes: CAD, HTN, [place], Hyperlipdemia, Other Gastrointestinal: Yes: Other (SBO s/p surgical resection 2003 [facility]) Infectious Disease: Yes: Other (sternal wound infection 2003) Endocrine: Yes: Diabetes Mellitus - Past Surgical History Past Surgical History: Yes: Cholecystectomy, Hysterectomy Additional Surgical History: repair of SBO x 2 - Alcohol/Substance Use Hx Alcohol Use: Yes (RARE) History of Substance Use: reports: None - Smoking History Smoking history: Former smoker Have you smoked in the past 12 months: No - Social History Usual Living Arrangement: Alone ADL: Independent Occupation: retired jade Place of : [employer] History of Recent Travel: No Home Medications - Allergies Allergies/Adverse Reactions: Allergies Allergy/AdvReac Type Severity Reaction Status Date / Time No Known Allergies Allergy Verified 03/10/19 21:25 - Home Medications Home Medications: Ambulatory Orders Aspirin 81 mg PO DAILY 03/10/19 Atorvastatin Ca [Lipitor] 40 mg PO HS 03/10/19 Furosemide [Lasix] 20 mg PO DAILY 03/10/19 Insulin Glargine,Hum.rec.anlog [Toujeo Solostar] 20 unit SQ DAILY 03/10/19 Metformin HCl [Metformin HCl ER] 500 mg PO BID 03/10/19 Olmesartan/Hydrochlorothiazide [Olmesartan-Hctz 20-12.5 mg Tab] 1 each PO DAILY 03/10/19 Semaglutide [Ozempic] 0.25 mg SQ WEEKLY 03/10/19 Family Disease History - Family Disease History Family Disease History: Other: Father (: 70's: CAD), Mother (: 70: ESRD ), Sister (5, 1 from fluid overload issue, the rest have DM II), Daughter ( 2, healthy) Other Family History: No family history of colorectal cancer or other GI malignancy Review of Systems - Review of Systems Constitutional: denies: Chills Cardiovascular: denies: Chest Pain Respiratory: denies: SOB Gastrointestinal: reports: Abdominal Pain Physical Exam-GI Vital Signs: Vital Signs Temperature 97.7 F 03/11/19 18:00 Pulse Rate 69 03/11/19 19:12 Respiratory Rate 20 03/11/19 19:12 Blood Pressure 186/89 H 03/11/19 19:12 O2 Sat by Pulse Oximetry (%) 98 03/11/19 10:30 Constitutional: Yes: Calm Eyes: No: Sclera Icterus Cardiovascular: Yes: Regular Rate and Rhythm Respiratory: Yes: CTA Bilaterally Gastrointestinal Inspection: Yes: Scars (deep vertical abdominopelvic surgical scar). No: Distention ...Auscultate: Yes: Hypoactive Bowel Sounds ...Palpate: Yes: Tenderness (TTP along scar, at site of ventral hernia that is in the left paramedian porition of the scar) ...Percussion: No: Tympanitic Edema: No (No LE edema) Neurological: Yes: Alert Labs: CBC, BMP 03/11/19 08:15 03/11/19 06:30 Hepatic Panel Total Bilirubin 0.9 mg/dl (0.2-1) 03/10/19 14:00 AST 24 U/L (15-37) 03/10/19 14:00 ALT 20 U/L (13-61) 03/10/19 14:00 Alkaline Phosphatase 70 U/L (45-117) 03/10/19 14:00 Albumin 4.2 g/dl (3.4-5.0) 03/10/19 14:00 Problem List - Problems (1) SBO (small bowel obstruction) Assessment/Plan: Patient being followed by and care per surgery Dr. Aguilar advised NGT. explained to Ms. Zavala that I agreed with this intervention as she herself wants conservative measures attempted. She said that she would think about it and wanted to talk to her daughter. I advised that if she agrees to let her nurse know NPO IV hydration per the primary team When acute issues are resolved, can refer back to office to reevaluate for screening colonoscopy Will sign off. Recall as needed Code(s): K56.609 - UNSP INTESTNL OBST, UNSP TO PARTIAL VERSUS COMPLETE OBST
[2019-03-11] MEDS: ATORVASTATIN CA 40 MG TABLET (FP) PO SCH (23:00)
[2019-03-12] MEDS: DEXTROSE 5%-0.45% SALINE 1,000 ML IV SCH (06:01)
[2019-03-12] MEDS ORDERED: PT OWN MED DRAWER 7, Y5N ONE (10:58)
[2019-03-12] MEDS: SODIUM CHLORIDE 1,000 ML IV SCH (10:59)
[2019-03-12] MEDS: HYDROCHLOROTHIAZIDE 25 MG TABLET (FP) PO SCH (11:06)
[2019-03-12] MEDS: ASPIRIN 81 MG CHEWABLE TABLETS PO SCH (11:06)
[2019-03-12] MEDS: DOCUSATE SODIUM 100 MG CAPSULE (FP) PO SCH ×2 (11:06→21:24)
[2019-03-12] MEDS: FUROSEMIDE 20 MG TABLET (FP) PO SCH (11:07)
--- NOTE | 2019-03-12 12:50 | PN.GI ---
GI Progress Note Subjective: AXR reveals dilated loops of small bowel and contrast in colon No acute events - Objective Vital Signs: Vital Signs Temperature 97.7 F 03/12/19 11:00 Pulse Rate 76 03/12/19 12:42 Respiratory Rate 19 03/12/19 12:42 Blood Pressure 163/83 03/12/19 12:42 O2 Sat by Pulse Oximetry (%) 98 03/12/19 09:00 Constitutional: Calm Cardiovascular: Yes: Regular Rate and Rhythm Respiratory: Yes: CTA Bilaterally Gastrointestinal Inspection: Yes: Hernia (ventral adjacent to vertical abdominopelvic scar. tender to palpation/reduction), Scars (vertical deep abdominopelvic scar. tender to palpation). No: Distention ...Auscultate: Yes: Normoactive Bowel Sounds Edema: No Neurological: Yes: Alert Labs: CBC, BMP 03/11/19 08:15 03/11/19 06:30 Problem List - Problems (1) SBO (small bowel obstruction) Assessment/Plan: Contrast in colon ow, however still with significant tenderness upon palpation of ventral hernia and surgical scar. Advised Dr. Aguilar. His concern is possible high grade partial small bowel obstruction. He will reassess her and discuss with patient. Plan per surgery Will sign off. Call as needed Code(s): K56.609 - UNSP INTESTNL OBST, UNSP TO PARTIAL VERSUS COMPLETE OBST
[2019-03-12] MEDS ORDERED: BISACODYL 10 MG SUPP.RECT PR PRN (13:15)
--- NOTE | 2019-03-12 14:12 | PN ---
Progress Note, Physician History of Present Illness: no ac events doing well - Current Medication List Current Medications: Active Medications Aspirin (Asa -) 81 mg PO DAILY ON LICENSE OF [facility] Last Admin: 03/12/19 11:06 Dose: 81 mg Atorvastatin Calcium (Lipitor -) 40 mg PO HS ON LICENSE OF [facility] Last Admin: 03/11/19 23:00 Dose: 40 mg Bisacodyl (Dulcolax Suppository -) 10 mg [place] DAILY PRN PRN Reason: CONSTIPATION Last Admin: 03/12/19 13:26 Dose: 10 mg Docusate Sodium (Colace -) 100 mg PO BID ON LICENSE OF [facility] Last Admin: 03/12/19 11:06 Dose: 100 mg Furosemide (Lasix -) 20 mg PO DAILY ON LICENSE OF [facility] Last Admin: 03/12/19 11:07 Dose: 20 mg Hydrochlorothiazide (Hctz -) 25 mg PO DAILY ON LICENSE OF [facility] Last Admin: 03/12/19 11:06 Dose: 25 mg Sodium Chloride (Normal Saline -) 1,000 mls @ 75 mls/hr IV ASDIR ON LICENSE OF [facility] Last Admin: 03/12/19 10:59 Dose: Not Given Dextrose/Sodium Chloride (D5-1/2ns -) 1,000 mls @ 75 mls/hr IV ASDIR ON LICENSE OF [facility] Last Admin: 03/12/19 06:01 Dose: 75 mls/hr Metformin HCl (Glucophage Xr -) 500 mg PO BIDAC ON LICENSE OF [facility] Last Admin: 03/11/19 06:03 Dose: Not Given - Objective Vital Signs: Vital Signs Temperature 97.7 F 03/12/19 11:00 Pulse Rate 76 03/12/19 12:42 Respiratory Rate 19 03/12/19 12:42 Blood Pressure 163/83 03/12/19 12:42 O2 Sat by Pulse Oximetry (%) 98 03/12/19 09:00 Constitutional: Yes: No Distress, Calm, Obese Cardiovascular: Yes: Regular Rate and Rhythm Respiratory: Yes: Regular, CTA Bilaterally Gastrointestinal: Yes: Soft, Hypoactive Bowel Sounds Musculoskeletal: Yes: WNL Extremities: Yes: WNL Neurological: Yes: Alert, Oriented Psychiatric: Yes: Alert, Oriented Labs: CBC, BMP 03/11/19 08:15 03/11/19 06:30 - ....Imaging X-ray: Report Reviewed, Image Reviewed Assessment/Plan Problem List - Problems (1) Incisional hernia of anterior abdominal wall with obstruction Code(s): K43.0 - INCISIONAL HERNIA WITH OBSTRUCTION, WITHOUT GANGRENE (2) Constipation Code(s): K59.00 - CONSTIPATION, UNSPECIFIED (3) Obesity (BMI 30-39.9) Code(s): E66.9 - OBESITY, UNSPECIFIED (4) SBO (small bowel obstruction) Code(s): K56.609 - UNSP INTESTNL OBST, UNSP TO PARTIAL VERSUS COMPLETE OBST (5) Diabetes Code(s): E11.9 - TYPE 2 DIABETES MELLITUS WITHOUT COMPLICATIONS (6) Hypertension Code(s): I10 - ESSENTIAL (PRIMARY) HYPERTENSION plan continue to monitor off of abx gi on board rest as per surgery and gi
[2019-03-12] MEDS ORDERED: ACETAMINOPHEN 325 MG TABLET (FP) PO PRN (15:34)
[2019-03-12] MEDS: ATORVASTATIN CA 40 MG TABLET (FP) PO SCH (21:24)
--- NOTE | 2019-03-12 21:48 | PN ---
Progress Note, Physician - Current Medication List Current Medications: Active Medications Acetaminophen (Tylenol -) 650 mg PO Q6H PRN PRN Reason: PAIN SCALE 1-5 Aspirin (Asa -) 81 mg PO DAILY [facility] Last Admin: 03/12/19 11:06 Dose: 81 mg Atorvastatin Calcium (Lipitor -) 40 mg PO HS [facility] Last Admin: 03/12/19 21:24 Dose: 40 mg Bisacodyl (Dulcolax Suppository -) 10 mg [place] DAILY PRN PRN Reason: CONSTIPATION Last Admin: 03/12/19 13:26 Dose: 10 mg Docusate Sodium (Colace -) 100 mg PO BID [facility] Last Admin: 03/12/19 21:24 Dose: 100 mg Furosemide (Lasix -) 20 mg PO DAILY [facility] Last Admin: 03/12/19 11:07 Dose: 20 mg Hydrochlorothiazide (Hctz -) 25 mg PO DAILY [facility] Last Admin: 03/12/19 11:06 Dose: 25 mg Dextrose/Sodium Chloride (D5-1/2ns -) 1,000 mls @ 75 mls/hr IV ASDIR [facility] Last Admin: 03/12/19 06:01 Dose: 75 mls/hr Metformin HCl (Glucophage Xr -) 500 mg PO BIDAC [facility] Last Admin: 03/12/19 17:20 Dose: Not Given - Objective Vital Signs: Vital Signs Temperature 98.3 F 03/12/19 18:00 Pulse Rate 83 03/12/19 18:00 Respiratory Rate 20 03/12/19 18:00 Blood Pressure 158/83 03/12/19 18:00 O2 Sat by Pulse Oximetry (%) 98 03/12/19 09:00 Labs: CBC, BMP 03/11/19 08:15 03/11/19 06:30
[2019-03-13] MEDS: DEXTROSE 5%-0.45% SALINE 1,000 ML IV SCH ×2 (02:03→09:20)
[2019-03-13 08:39] LABS: BASO % 0.6 % (0-2.0); EOS % 3.3 % (0-4.5); HEMATOCRIT 37.7 % (32.4-45.2); HEMOGLOBIN 12.9 GM/dL (10.7-15.3); LYMPH % 32.5 % (8-40); MCH 29.1 pg (25.7-33.7); MCHC 34.2 g/dl (32.0-36.0); MEAN CELL VOLUME 85.1 fl (80-96); MEAN PLT VOLUME 8.4 fl (7.5-11.1); NEUT % 55.6 % (42.8-82.8); PLATELET COUNT 184 K/MM3 (134-434); RBC 4.42 M/mm3 (3.60-5.2); RDW 13.5 % (11.6-15.6); WHITE BLOOD COUNT 4.6 K/mm3 (4.0-10.0)
[2019-03-13] MEDS ORDERED: PT OWN MED DRAWER 7, Y5N ONE ×3 (09:13→17:11)
[2019-03-13 09:16] LABS: ALBUMIN 3.7 g/dl (3.4-5.0); ALK PHOS 77 U/L (45-117); ANION GAP 9 MMOL/L (8-16); BILIRUBIN,TOTAL 0.6 mg/dL (0.2-1); BLOOD UREA NITROGEN 14 mg/dL (7-18); CALCIUM 8.5 mg/dL (8.5-10.1); CHLORIDE 104 mmol/L (98-107); CO2 25 mmol/L (21-32); CREATININE 0.9 mg/dL (0.55-1.3); GLUCOSE,RANDOM 139 mg/dL (74-106); POTASSIUM 3.2 mmol/L (3.5-5.1); SGOT/AST 31 U/L (15-37); SGPT/ALT 29 U/L (13-61); SODIUM 138 mmol/L (136-145); TOT PROT 6.4 g/dl (6.4-8.2)
[2019-03-13] MEDS: FUROSEMIDE 20 MG TABLET (FP) PO SCH (09:20)
[2019-03-13] MEDS: HYDROCHLOROTHIAZIDE 25 MG TABLET (FP) PO SCH (09:20)
[2019-03-13] MEDS: ASPIRIN 81 MG CHEWABLE TABLETS PO SCH (09:20)
[2019-03-13] MEDS: DOCUSATE SODIUM 100 MG CAPSULE (FP) PO SCH ×2 (09:20→21:10)
--- NOTE | 2019-03-13 11:35 | PN ---
Progress Note, Physician Chief Complaint: abdominal pain History of Present Illness: 63yo female PMH CAD s/p CABG, IDDM, HTN, HLD, Chronic abdominal pain and constipation, ventral incsional hernia since exploratory laparotomy in 2003 for reported bowel obstruction at [facility] in [place], [place], CAD status post CABG 4 vessel, in 2003, complicated by sternal wound infection and repeat sternotomy presenting with acute onset of diffuse abdominal pain. She has been gradually improving ant report a large BM - Current Medication List Current Medications: Active Medications Acetaminophen (Tylenol -) 650 mg PO Q6H PRN PRN Reason: PAIN SCALE 1-5 Aspirin (Asa -) 81 mg PO DAILY [facility] Last Admin: 03/13/19 09:20 Dose: 81 mg Atorvastatin Calcium (Lipitor -) 40 mg PO HS [facility] Last Admin: 03/12/19 21:24 Dose: 40 mg Bisacodyl (Dulcolax Suppository -) 10 mg [place] DAILY PRN PRN Reason: CONSTIPATION Last Admin: 03/12/19 13:26 Dose: 10 mg Docusate Sodium (Colace -) 100 mg PO BID [facility] Last Admin: 03/13/19 09:20 Dose: 100 mg Furosemide (Lasix -) 20 mg PO DAILY [facility] Last Admin: 03/13/19 09:20 Dose: 20 mg Hydrochlorothiazide (Hctz -) 25 mg PO DAILY [facility] Last Admin: 03/13/19 09:20 Dose: 25 mg Dextrose/Sodium Chloride (D5-1/2ns -) 1,000 mls @ 75 mls/hr IV ASDIR [facility] Last Admin: 03/13/19 09:20 Dose: Not Given Metformin HCl (Glucophage Xr -) 500 mg PO BIDAC [facility] Last Admin: 03/13/19 06:07 Dose: Not Given - Objective Vital Signs: Vital Signs Temperature 98.2 F 03/13/19 02:00 Pulse Rate 84 03/13/19 04:35 Respiratory Rate 18 03/13/19 04:35 Blood Pressure 152/78 03/13/19 04:35 O2 Sat by Pulse Oximetry (%) 98 03/12/19 09:00 Constitutional: Yes: Well Nourished, No Distress, Calm Eyes: Yes: Conjunctiva Clear, EOM Intact HENT: Yes: Atraumatic, Normocephalic Neck: Yes: Supple, Trachea Midline Cardiovascular: Yes: Regular Rate and Rhythm, S1, S2 Respiratory: Yes: Regular, CTA Bilaterally Gastrointestinal: Yes: Normal Bowel Sounds, Soft, Abdomen, Obese. No: Tenderness, Tenderness, Epigastrium, Tenderness, Rebound ...Rectal Exam: Yes: Deferred Genitourinary: No: CVA Tenderness - Left, CVA Tenderness - Right Breast(s): No: Discharge from Nipple, Skin Changes Musculoskeletal: No: Muscle Pain, Muscle Weakness Extremities: No: Cool, Cyanosis Edema: No Peripheral Pulses WNL: Yes Peripheral Pulses: Left Radial: 2+, Right Radial: 2+, Left Doralis Pedis: 2+, Right Dorsalis Pedis: 2+, Left Femoral: 2+, Right Femoral: 2+ Integumentary: No: Jaundice, Tattoos, Tenting Neurological: Yes: Alert, Oriented Psychiatric: Yes: Alert, Oriented Labs: CBC, BMP 03/13/19 08:10 03/13/19 08:10 Problem List - Problems (1) Incisional hernia of anterior abdominal wall with obstruction Assessment/Plan: 63yo female MMP andominal pain, constipation, long standing incisional hernia after abdominal surgeries, with SBO on imaging. no peritonitis on exam, reducible hernia with some discomfort. No leukocytosis, no peritonitis. Favor obsrervation and serial exams. No emergency surgical intervention at this time. Now tolerating diet Diet as tolerated repeat labs adequate analgesia serial exams GI for bowel regimen for constipation (only on colace) and screening colonoscopy recall as needed Code(s): K43.0 - INCISIONAL HERNIA WITH OBSTRUCTION, WITHOUT GANGRENE (2) Constipation Code(s): K59.00 - CONSTIPATION, UNSPECIFIED (3) Obesity (BMI 30-39.9) Code(s): E66.9 - OBESITY, UNSPECIFIED (4) SBO (small bowel obstruction) Code(s): K56.609 - UNSP INTESTNL OBST, UNSP TO PARTIAL VERSUS COMPLETE OBST (5) Diabetes Code(s): E11.9 - TYPE 2 DIABETES MELLITUS WITHOUT COMPLICATIONS (6) Hypertension Code(s): I10 - ESSENTIAL (PRIMARY) HYPERTENSION
[2019-03-13] MEDS: ATORVASTATIN CA 40 MG TABLET (FP) PO SCH (21:10)
--- NOTE | 2019-03-13 21:43 | PN ---
Progress Note, Physician - Current Medication List Current Medications: Active Medications Acetaminophen (Tylenol -) 650 mg PO Q6H PRN PRN Reason: PAIN SCALE 1-5 Aspirin (Asa -) 81 mg PO DAILY [facility] Last Admin: 03/13/19 09:20 Dose: 81 mg Atorvastatin Calcium (Lipitor -) 40 mg PO HS [facility] Last Admin: 03/13/19 21:10 Dose: 40 mg Bisacodyl (Dulcolax Suppository -) 10 mg [place] DAILY PRN PRN Reason: CONSTIPATION Last Admin: 03/12/19 13:26 Dose: 10 mg Docusate Sodium (Colace -) 100 mg PO BID [facility] Last Admin: 03/13/19 21:10 Dose: 100 mg Furosemide (Lasix -) 20 mg PO DAILY [facility] Last Admin: 03/13/19 09:20 Dose: 20 mg Hydrochlorothiazide (Hctz -) 25 mg PO DAILY [facility] Last Admin: 03/13/19 09:20 Dose: 25 mg Dextrose/Sodium Chloride (D5-1/2ns -) 1,000 mls @ 75 mls/hr IV ASDIR [facility] Last Admin: 03/13/19 09:20 Dose: Not Given Metformin HCl (Glucophage Xr -) 500 mg PO BIDAC [facility] Last Admin: 03/13/19 18:12 Dose: 500 mg - Objective Vital Signs: Vital Signs Temperature 97.5 F L 03/13/19 18:00 Pulse Rate 89 03/13/19 19:00 Respiratory Rate 19 03/13/19 19:00 Blood Pressure 147/88 03/13/19 19:00 O2 Sat by Pulse Oximetry (%) 98 03/12/19 09:00 Labs: CBC, BMP 03/13/19 08:10 03/13/19 08:10
[2019-03-14] MEDS: KCL 10 MEQ IVPB 10 MEQ/100 ML INFUS.BAG IVPB SCH ×2 (03:11→04:04)
[2019-03-14 07:34] LABS: BASO % 0.5 % (0-2.0); EOS % 3.8 % (0-4.5); HEMATOCRIT 38.7 % (32.4-45.2); HEMOGLOBIN 13.5 GM/dL (10.7-15.3); LYMPH % 35.5 % (8-40); MCH 30.1 pg (25.7-33.7); MCHC 34.8 g/dl (32.0-36.0); MEAN CELL VOLUME 86.5 fl (80-96); MEAN PLT VOLUME 8.6 fl (7.5-11.1); MONO % 8.1 % (3.8-10.2); NEUT % 52.1 % (42.8-82.8); PLATELET COUNT 177 K/MM3 (134-434); RBC 4.47 M/mm3 (3.60-5.2); RDW 13.3 % (11.6-15.6); WHITE BLOOD COUNT 5.1 K/mm3 (4.0-10.0)
[2019-03-14 08:07] LABS: ALBUMIN 3.6 g/dl (3.4-5.0); ALK PHOS 75 U/L (45-117); ANION GAP 8 MMOL/L (8-16); BILIRUBIN,TOTAL 0.6 mg/dL (0.2-1); BLOOD UREA NITROGEN 14 mg/dL (7-18); CALCIUM 8.9 mg/dL (8.5-10.1); CHLORIDE 103 mmol/L (98-107); CO2 27 mmol/L (21-32); CREATININE 0.8 mg/dL (0.55-1.3); GLUCOSE,RANDOM 108 mg/dL (74-106); POTASSIUM 3.4 mmol/L (3.5-5.1); SGOT/AST 34 U/L (15-37); SGPT/ALT 36 U/L (13-61); SODIUM 138 mmol/L (136-145); TOT PROT 6.4 g/dl (6.4-8.2)
[2019-03-14] MEDS: DOCUSATE SODIUM 100 MG CAPSULE (FP) PO SCH ×2 (11:24→21:44)
[2019-03-14] MEDS: FUROSEMIDE 20 MG TABLET (FP) PO SCH (11:24)
[2019-03-14] MEDS: HYDROCHLOROTHIAZIDE 25 MG TABLET (FP) PO SCH (11:25)
[2019-03-14] MEDS: ASPIRIN 81 MG CHEWABLE TABLETS PO SCH (11:25)
--- NOTE | 2019-03-14 16:08 | PN ---
Progress Note, Physician History of Present Illness: Pt seen and examined. Events noted. She is having BMs and no abdominal pain, diet being advanced. Has no specific complaints. - Current Medication List Current Medications: Active Medications Acetaminophen (Tylenol -) 650 mg PO Q6H PRN PRN Reason: PAIN SCALE 1-5 Aspirin (Asa -) 81 mg PO DAILY [facility] Last Admin: 03/14/19 11:25 Dose: 81 mg Atorvastatin Calcium (Lipitor -) 40 mg PO HS [facility] Last Admin: 03/13/19 21:10 Dose: 40 mg Bisacodyl (Dulcolax Suppository -) 10 mg [place] DAILY PRN PRN Reason: CONSTIPATION Last Admin: 03/12/19 13:26 Dose: 10 mg Docusate Sodium (Colace -) 100 mg PO BID [facility] Last Admin: 03/14/19 11:24 Dose: Not Given Furosemide (Lasix -) 20 mg PO DAILY [facility] Last Admin: 03/14/19 11:24 Dose: 20 mg Hydrochlorothiazide (Hctz -) 25 mg PO DAILY [facility] Last Admin: 03/14/19 11:25 Dose: 25 mg Metformin HCl (Glucophage Xr -) 500 mg PO BIDAC [facility] Last Admin: 03/14/19 06:48 Dose: 500 mg - Objective Vital Signs: Vital Signs Temperature 98.0 F 03/14/19 14:59 Pulse Rate 89 03/14/19 14:59 Respiratory Rate 20 03/14/19 14:59 Blood Pressure 142/75 03/14/19 14:59 O2 Sat by Pulse Oximetry (%) 95 03/13/19 21:00 Constitutional: Yes: No Distress, Calm Cardiovascular: Yes: Regular Rate and Rhythm Respiratory: Yes: Regular Gastrointestinal: Yes: Normal Bowel Sounds, Soft Genitourinary: Yes: WNL Neurological: Yes: Alert Labs: CBC, BMP 03/14/19 05:21 03/14/19 05:21 Microbiology 03/10/19 15:46 Urine - Urine Clean Catch Urine Culture - Final Escherichia Coli Problem List - Problems (1) Acute UTI (urinary tract infection) Code(s): N39.0 - URINARY TRACT INFECTION, SITE NOT SPECIFIED (2) Constipation Code(s): K59.00 - CONSTIPATION, UNSPECIFIED (3) SBO (small bowel obstruction) Code(s): K56.609 - UNSP INTESTNL OBST, UNSP TO PARTIAL VERSUS COMPLETE OBST (4) Ventral hernia Code(s): K43.9 - VENTRAL HERNIA WITHOUT OBSTRUCTION OR GANGRENE (5) Diabetes Code(s): E11.9 - TYPE 2 DIABETES MELLITUS WITHOUT COMPLICATIONS (6) Hypertension Code(s): I10 - ESSENTIAL (PRIMARY) HYPERTENSION Assessment/Plan Pt doing well No abd pain, having BMs -- continue monitor off antibiotics
[2019-03-14] MEDS: ATORVASTATIN CA 40 MG TABLET (FP) PO SCH (21:44)
--- NOTE | 2019-03-14 22:07 | PN ---
Progress Note, Physician - Current Medication List Current Medications: Active Medications Acetaminophen (Tylenol -) 650 mg PO Q6H PRN PRN Reason: PAIN SCALE 1-5 Aspirin (Asa -) 81 mg PO DAILY [facility] Last Admin: 03/14/19 11:25 Dose: 81 mg Atorvastatin Calcium (Lipitor -) 40 mg PO HS [facility] Last Admin: 03/14/19 21:44 Dose: 40 mg Bisacodyl (Dulcolax Suppository -) 10 mg [place] DAILY PRN PRN Reason: CONSTIPATION Last Admin: 03/12/19 13:26 Dose: 10 mg Docusate Sodium (Colace -) 100 mg PO BID [facility] Last Admin: 03/14/19 21:44 Dose: Not Given Furosemide (Lasix -) 20 mg PO DAILY [facility] Last Admin: 03/14/19 11:24 Dose: 20 mg Hydrochlorothiazide (Hctz -) 25 mg PO DAILY [facility] Last Admin: 03/14/19 11:25 Dose: 25 mg Metformin HCl (Glucophage Xr -) 500 mg PO BIDAC [facility] Last Admin: 03/14/19 17:51 Dose: 500 mg - Objective Vital Signs: Vital Signs Temperature 98.6 F 03/14/19 21:22 Pulse Rate 77 03/14/19 21:22 Respiratory Rate 20 03/14/19 21:22 Blood Pressure 157/84 03/14/19 21:22 O2 Sat by Pulse Oximetry (%) 95 03/14/19 09:00 Labs: CBC, BMP 03/14/19 05:21 03/14/19 05:21
[2019-03-15] MEDS: KCL 10 MEQ IVPB 10 MEQ/100 ML INFUS.BAG IVPB SCH ×2 (03:05→04:05)
[2019-03-15 06:52] LABS: BASO % 0.6 % (0-2.0); EOS % 3.2 % (0-4.5); HEMATOCRIT 39.1 % (32.4-45.2); HEMOGLOBIN 13.3 GM/dL (10.7-15.3); LYMPH % 29.6 % (8-40); MCH 29.2 pg (25.7-33.7); MCHC 33.9 g/dl (32.0-36.0); MEAN CELL VOLUME 86.1 fl (80-96); MEAN PLT VOLUME 8.4 fl (7.5-11.1); MONO % 7.5 % (3.8-10.2); NEUT % 59.1 % (42.8-82.8); PLATELET COUNT 195 K/MM3 (134-434); RBC 4.55 M/mm3 (3.60-5.2); RDW 13.3 % (11.6-15.6); WHITE BLOOD COUNT 6.5 K/mm3 (4.0-10.0)
[2019-03-15 07:15] LABS: ALBUMIN 3.7 g/dl (3.4-5.0); ALK PHOS 85 U/L (45-117); ANION GAP 7 MMOL/L (8-16); BILIRUBIN,TOTAL 0.5 mg/dL (0.2-1); BLOOD UREA NITROGEN 17 mg/dL (7-18); CALCIUM 9.2 mg/dL (8.5-10.1); CHLORIDE 105 mmol/L (98-107); CO2 28 mmol/L (21-32); CREATININE 1.2 mg/dL (0.55-1.3); GLUCOSE,RANDOM 150 mg/dL (74-106); POTASSIUM 3.6 mmol/L (3.5-5.1); SGOT/AST 25 U/L (15-37); SGPT/ALT 33 U/L (13-61); SODIUM 140 mmol/L (136-145); TOT PROT 6.5 g/dl (6.4-8.2)
[2019-03-15 09:13] VITALS: PULSE 93
[2019-03-15] MEDS: HYDROCHLOROTHIAZIDE 25 MG TABLET (FP) PO SCH (09:14)
[2019-03-15] MEDS: DOCUSATE SODIUM 100 MG CAPSULE (FP) PO SCH (09:14)
[2019-03-15] MEDS: FUROSEMIDE 20 MG TABLET (FP) PO SCH (09:14)
[2019-03-15] MEDS: ASPIRIN 81 MG CHEWABLE TABLETS PO SCH (09:14)
--- NOTE | 2019-03-15 12:21 | PN ---
Progress Note, Physician History of Present Illness: stable no new issues - Current Medication List Current Medications: Active Medications Acetaminophen (Tylenol -) 650 mg PO Q6H PRN PRN Reason: PAIN SCALE 1-5 Aspirin (Asa -) 81 mg PO DAILY [facility] Last Admin: 03/15/19 09:14 Dose: 81 mg Atorvastatin Calcium (Lipitor -) 40 mg PO HS [facility] Last Admin: 03/14/19 21:44 Dose: 40 mg Bisacodyl (Dulcolax Suppository -) 10 mg [place] DAILY PRN PRN Reason: CONSTIPATION Last Admin: 03/12/19 13:26 Dose: 10 mg Docusate Sodium (Colace -) 100 mg PO BID [facility] Last Admin: 03/15/19 09:14 Dose: 100 mg Furosemide (Lasix -) 20 mg PO DAILY [facility] Last Admin: 03/15/19 09:14 Dose: 20 mg Hydrochlorothiazide (Hctz -) 25 mg PO DAILY [facility] Last Admin: 03/15/19 09:14 Dose: 25 mg Metformin HCl (Glucophage Xr -) 500 mg PO BIDAC [facility] Last Admin: 03/15/19 06:28 Dose: 500 mg - Objective Vital Signs: Vital Signs Temperature 98.1 F 03/15/19 09:12 Pulse Rate 93 H 03/15/19 09:12 Respiratory Rate 20 03/15/19 09:12 Blood Pressure 115/62 03/15/19 09:12 O2 Sat by Pulse Oximetry (%) 95 03/14/19 21:00 Constitutional: Yes: No Distress, Calm Cardiovascular: Yes: Regular Rate and Rhythm Respiratory: Yes: Regular, CTA Bilaterally Gastrointestinal: Yes: Normal Bowel Sounds, Soft Musculoskeletal: Yes: WNL Extremities: Yes: WNL Neurological: Yes: Alert, Oriented Psychiatric: Yes: Alert, Oriented Labs: CBC, BMP 03/15/19 06:00 03/15/19 06:00 Assessment/Plan Problem List - Problems (1) Incisional hernia of anterior abdominal wall with obstruction Code(s): K43.0 - INCISIONAL HERNIA WITH OBSTRUCTION, WITHOUT GANGRENE (2) Constipation Code(s): K59.00 - CONSTIPATION, UNSPECIFIED (3) Obesity (BMI 30-39.9) Code(s): E66.9 - OBESITY, UNSPECIFIED (4) SBO (small bowel obstruction) Code(s): K56.609 - UNSP INTESTNL OBST, UNSP TO PARTIAL VERSUS COMPLETE OBST (5) Diabetes Code(s): E11.9 - TYPE 2 DIABETES MELLITUS WITHOUT COMPLICATIONS (6) Hypertension Code(s): I10 - ESSENTIAL (PRIMARY) HYPERTENSION plan continue to monitor off of abx gi on board rest as per surgery and gi
[2019-03-15 14:51] VITALS: BP 144/78; TEMP 97.5
== END 2019-03-15 16:14 | disposition home or self-care (01) | DRG 394 ==
LOC: FER 12:02 → SUPCPDRO 12:02 → FER 23:16 → J5S 23:45 → OBSVTOIN 03-11 05:09
PROVIDERS: ADMIT Internal Medicine; ATTEND Internal Medicine
PROC: 0D9670Z Drainage of Stomach with Drainage Device, Via Natural or Artificial Opening (ICD-10-PCS; principal; 2019-03-10)
DX: K43.0 Incisional hernia with obstruction, without gangrene (principal); N39.0 Urinary tract infection, site not specified; I25.10 Atherosclerotic heart disease of native coronary artery without angina pectoris; Z95.1 Presence of aortocoronary bypass graft; I10 Essential (primary) hypertension; E78.5 Hyperlipidemia, unspecified; K59.00 Constipation, unspecified; E66.9 Obesity, unspecified; Z68.36 Body mass index [BMI] 36.0-36.9, adult; E11.9 Type 2 diabetes mellitus without complications
CPT/HCPCS: 36415; 74019-TC-FY; 74176-TC; 76700-TC; 80048; 80053; 81003; 81015; 82962; 83605; 83690; 85025; 87086; 87186; 93005; 99285-25; G0378; J0131; J0735; J7030

== ENCOUNTER 2019-05-10 12:35 | Inpatient (IN) | payer OTHER | END 2019-05-13 15:53 | disposition home or self-care (01) | LOC: J6S 05-11 03:53 → JER 12:35 → JERBED 22:34 ==

== ENCOUNTER 2019-11-22 12:26 | Inpatient (IN) | payer OTHER ==
--- NOTE | 2019-11-22 13:07 | PDOC ---
History of Present Illness - General Chief Complaint: Chest Pain Stated Complaint: CHEST PAIN Time Seen by Provider: 11/22/19 13:07 History Source: Patient Exam Limitations: No Limitations - History of Present Illness Initial Comments: 11/22/19 13:07 64yF w PMHx IDDM, CAD s/p CABG, HTN, HLD presenting with chest pain. Had midsternal exertional chest discomfort being more persistent, SOB for past week. Progressively BLE edema over past 2weeks. Went to Dr office today, noted discomfort, referred to ED for further eval. Also ran out of all medication 2d ago. Denies fever, n/v, cough, AB pain. Last echo 05/11/19 showed normal EF Doesn't have refuse collector Past History - Past Medical History Allergies/Adverse Reactions: Allergies Allergy/AdvReac Type Severity Reaction Status Date / Time No Known Allergies Allergy Verified 11/22/19 12:31 Home Medications: Ambulatory Orders Aspirin 81 mg PO DAILY 03/10/19 Furosemide [Lasix] 20 mg PO DAILY 03/10/19 Olmesartan/Hydrochlorothiazide [Olmesartan-Hctz 20-12.5 mg Tab] 1 each PO DAILY 03/10/19 Semaglutide [Ozempic] 0.25 mg SQ WEEKLY 03/10/19 metFORMIN HCL [Metformin HCl ER] 500 mg PO BID 03/10/19 Dapagliflozin Propanediol [Farxiga] 5 mg PO DAILY 05/10/19 Cardiac Disorders: Yes (CABG 3 VESSELS) COPD: No Diabetes: Yes GI Disorders: Yes (BOWEL OBSTRUCTION) HTN: Yes Hypercholesterolemia: Yes - Surgical History Abdominal Surgery: Yes (OBSTRUCTION) Cardiac Surgery: Yes (3 BYPASS) - Psycho Social/Smoking Cessation Hx Smoking History: Former smoker Have you smoked in the past 12 months: No If you are a former smoker, when did you quit?: smoked when younger Information on smoking cessation initiated: No Hx Alcohol Use: No Drug/Substance Use Hx: No Substance Use Type: None Hx Substance Use Treatment: No Review of Systems - Review of Systems Constitutional: No: Chills, Fever HEENTM: No: Eye Pain, Nose Pain, Throat Pain, Mouth Pain Respiratory: Yes: Shortness of Breath. No: Cough Cardiac (ROS): Yes: Chest Pain. No: Palpitations, Syncope ABD/GI: No: Abdominal Distended, Constipated, Diarrhea, Nausea, Vomiting : No: Burning, Dysuria Musculoskeletal: No: Back Pain, Neck Pain Integumentary: No: Bruising, Flushing, Lesions Neurological: No: Headache, Seizure, Tingling Psychiatric: No: Anxiety, Depression, Stressors Endocrine: No: Excessive Sweating, Flushing, Intolerance to Cold, Intolerance to Heat Hematologic/Lymphatic: No: Anemia, Blood Clots *Physical Exam - Vital Signs Last Vital Signs Temp Pulse Resp BP Pulse Ox 98.2 F 72 16 160/82 99 11/22/19 16:44 11/22/19 16:44 11/22/19 16:44 11/22/19 16:44 11/22/19 16:44 - Physical Exam General Appearance: Yes: Nourished, Appropriately Dressed. No: Apparent Distress HEENT: positive: EOMI, MORTEZA, Normal Voice, Hearing Grossly Normal. negative: Scleral Icterus (R), Scleral Icterus (L), Nasal Congestion, Rhinorrhea Respiratory/Chest: positive: Lungs Clear, Normal Breath Sounds. negative: Chest Tender, Respiratory Distress, Crackles, Rales, Rhonchi, Stridor, Wheezing Cardiovascular: positive: Regular Rhythm, Regular Rate, S1, S2. negative: Edema , Murmur Gastrointestinal/Abdominal: positive: Normal Bowel Sounds, Flat, Soft. negative : Tender, Organomegaly, Distended, Guarding, Rebound, Tenderness, Hernia, Mass Extremity: positive: Normal Capillary Refill, Swelling (+1 to knees BLE) Integumentary: positive: Normal Color Neurologic: positive: Fully Oriented, Alert, Normal Response, Responsive. negative: Sensory Deficit, Confused, Disoriented Heart Score/ECG Review - History History: Moderately suspicious - Electrocardiogram EKG: Normal - Age Age: >/= 65 - Risk Factors Risk Factors Heart Score: Yes Hx Hypercholesterolemia, Yes Hx Hypertension, Yes Hx Diabetes, Yes Hx Obesity Based on the list above the patient has:: >/=3 risk factors or Hx atherosclerotic disease - Troponin Troponin: </= normal limit - Score Heart Score - Total: 5 ED Treatment Course - LABORATORY CBC & Chemistry Diagram: 11/22/19 14:00 11/22/19 14:00 - ADDITIONAL ORDERS Additional order review: Laboratory Results 11/22/19 11/22/19 11/22/19 16:39 16:07 14:00 PT with INR 11.20 INR 0.95 Sodium Potassium Chloride Carbon Dioxide Anion Gap BUN Creatinine Est GFR (CKD-EPI)AfAm Est GFR (CKD-EPI)NonAf POC Glucometer 112 66 Random Glucose Calcium Total Bilirubin AST ALT Alkaline Phosphatase Creatine Kinase Creatine Kinase Index CK-MB (CK-2) Troponin I B-Natriuretic Peptide Total Protein Albumin 11/22/19 11/22/19 14:00 14:00 PT with INR INR Sodium 143 Potassium 3.3 L Chloride 104 Carbon Dioxide 31 Anion Gap 7 L BUN 24.9 H Creatinine 0.9 Est GFR (CKD-EPI)AfAm 77.22 Est GFR (CKD-EPI)NonAf 66.63 POC Glucometer Random Glucose 44 L* Calcium 10.0 Total Bilirubin 0.4 AST 25 ALT 39 Alkaline Phosphatase 84 Creatine Kinase 272 H Creatine Kinase Index 1.2 CK-MB (CK-2) 3.3 Troponin I < 0.02 B-Natriuretic Peptide 11.7 Total Protein 7.3 Albumin 4.2 11/22/19 11/22/19 11/22/19 16:39 16:07 14:00 RBC 4.23 MCV 89.2 MCHC 33.3 RDW 14.1 MPV 7.8 Neutrophils % 51.4 Lymphocytes % 38.4 Monocytes % 7.6 Eosinophils % 1.9 Basophils % 0.7 POC Glucometer 112 66 - RADIOLOGY Radiology Studies Ordered: Category Date Time Status CXRPORT [CHEST X-RAY PORTABLE*] [RAD] Stat Radiology 11/22/19 13:14 Completed - Medications Given in the ED: ED Medications Discontinued Medications Generic Name Dose Route Start Last Admin Trade Name Krystianq PRN Reason Stop Dose Admin Acetaminophen 1,000 mg 11/22/19 13:31 11/22/19 13:38 Ofirmev Injection - IVPB 11/22/19 13:32 1,000 mg ONCE ONE Administration Aspirin 324 mg 11/22/19 13:13 11/22/19 13:22 Asa - PO 11/22/19 13:14 324 mg ONCE ONE Administration Dextrose 25 gm 11/22/19 15:46 11/22/19 16:03 D50w (Vial) - IVPUSH 11/22/19 15:47 25 gm NOW ONE Administration Nitroglycerin 0.4 mg 11/22/19 13:13 11/22/19 13:21 Nitrostat - SL 11/22/19 13:14 0.4 mg ONCE ONE Administration Nitroglycerin 0.4 mg 11/22/19 17:41 11/22/19 17:45 Nitrostat - SL 11/22/19 17:42 0.4 mg ONCE ONE Administration Medical Decision Making - Medical Decision Making 11/22/19 13:08 EKG shows deepening TWI V5-6 compared to 05/10/19 --- 64yF w PMHx IDDM, CAD s/p CABG, HTN, HLD presenting with midsternal exertional chest discomfort, SOB, BLE edema d/t unstable angina. Low concern for CHF exacerbation (normal BNP) vs ACS (neg trop) vs CXr (clear lungs CXR). Hypoglycemic BG 44 - given 3 apple juice. Given aspirin, nitrox2, tylenol. 5:45p complain of sudden onset midsternal chest discomfort while sitting in med , given 1 nitro. repeat EKG was unchanged EKG NSR, HR 80, QTc 401, unchanged from 1st EKG Consulted Dr Moon salter - advised give heparin/lovenox if 2nd trop elevated, if not continue med management Admitted tele/obvs Dr Lainez for unstable angina ACS r/o (5 HEART score), hypoglycemia - pending 2nd trop Discharge - Discharge Information Problems reviewed: Yes Clinical Impression/Diagnosis: Unstable angina, Hypoglycemia Condition: Improved - Follow up/Referral Referrals: Jose Schwartz MD [Primary Care Provider] - - Patient Discharge Instructions - Post Discharge Activity
[2019-11-22] MEDS ORDERED: ASPIRIN 81 MG CHEWABLE TABLETS ONE ×2 (13:13→13:14)
[2019-11-22] MEDS ORDERED: ASPIRIN 81 MG CHEWABLE TABLETS PO ONE (13:13)
[2019-11-22] MEDS ORDERED: NITROGLYCERIN SUBLINGUAL 1/150 0.4 MG TAB SL ONE ×2 (13:13→17:41)
[2019-11-22] MEDS ORDERED: ACETAMINOPHEN 1000 MG/100 ML VIAL (NON FORMULARY) IVPB ONE (13:31)
--- NOTE | 2019-11-22 14:30 | PDOC ---
Attending Attestation - Resident Resident Name: Jerrod Dinh - ED Attending Attestation I have performed the following: I have examined & evaluated the patient, The case was reviewed & discussed with the resident, I agree w/resident's findings & plan, Exceptions are as noted - HPI HPI: 11/22/19 14:34 64y F hx of insulin-dependent diabetes, CAD sp CABG, hyperlipidemia and hypertension presents with complaint of 2 days of worsening chest pain with exertion. Pt notes 2 days ago, when she was putting up decorations when she starte to feel intermittent chest pressure and sob, patient notes that the symptoms became more persistent today, she went to her doctor's office who had a EKG performed and there were changes noted from prior EKG and she was referred to the ER. The patient states that she still has some mild discomfort in her chest, she also endorses mild nausea and feeling out of breath with exertion. The patient also endorses some increased leg swelling over the last several weeks she denies any fever, chills, diarrhea, melena, diaphoresis, hemoptysis. PMD: Dr. Schwartz Exam: GENERAL: The patient is awake, alert, and fully oriented, Nontoxic - in no acute distress. HEAD: Normocephalic, atraumatic. EYES: extraocular movements intact, sclera anicteric, conjunctiva clear. ENT: Normal voice, Moist mucous membranes. NECK: Normal range of motion, supple LUNGS: Breath sounds equal, clear to auscultation bilaterally. No wheezes, no rhonchi, no rales. HEART: Regular rate and rhythm, normal S1 and S2 without murmur, rub or gallop. ABDOMEN: Soft, nontender, No guarding, no rebound. No CVA tenderness EXTREMITIES: Normal range of motion, +1 edema b/l NEUROLOGICAL: No facial assymetry, Normal speech, PSYCH: Normal mood, normal affect. SKIN: Warm, Dry, normal turgor, oncner for possible acs due to ekg changes and mcarthur/cp with exertion will obtain trop anticipate admission - Physicial Exam PE: 11/26/19 10:57 hi joseph - Medical Decision Making 11/22/19 15:46 labs unremarkable will admit for further management and risk stratificatio of acs Heart Score/ECG Review - ECG Impressions Comment:: 11/22/19 15:46 Twelve-lead EKG was performed and reviewed by me. There is normal sinus rhythm with a normal rate. rate of 90 normal axis tiw in lateral leads
[2019-11-22 15:07] LABS: BASO % 0.7 % (0-2.0); EOS % 1.9 % (0-4.5); HEMATOCRIT 37.7 % (32.4-45.2); HEMOGLOBIN 12.5 GM/dL (10.7-15.3); LYMPH % 38.4 % (8-40); MCH 29.7 pg (25.7-33.7); MCHC 33.3 g/dl (32.0-36.0); MEAN CELL VOLUME 89.2 fl (80-96); MEAN PLT VOLUME 7.8 fl (7.5-11.1); MONO % 7.6 % (3.8-10.2); NEUT % 51.4 % (42.8-82.8); PLATELET COUNT 276 K/MM3 (134-434); RBC 4.23 M/mm3 (3.60-5.2); RDW 14.1 % (11.6-15.6); WHITE BLOOD COUNT 7.2 K/mm3 (4.0-10.0)
[2019-11-22 15:22] LABS: INR 0.95 (0.83-1.09); PROTHROMBIN TIME (PATIENT) 11.2 SEC (9.7-13.0)
[2019-11-22 15:36] LABS: ALBUMIN 4.2 g/dl (3.4-5.0); BILIRUBIN,TOTAL 0.4 mg/dL (0.2-1); BLOOD UREA NITROGEN 24.9 mg/dL (7-18); CREATININE 0.9 mg/dL (0.55-1.3); N-TERMINAL BNP 11.7 pg/ml (5-125); POTASSIUM 3.3 mmol/L (3.5-5.1); TOT PROT 7.3 g/dl (6.4-8.2)
[2019-11-22] MEDS ORDERED: DEXTROSE 50%-WATER - 25 GM/50 ML VIAL IVPUSH ONE (15:46)
[2019-11-22] MEDS ORDERED: NITROGLYCERIN 2% OINTMENT - 1GM PACKET TD ONE ×2 (20:24→22:27)
--- NOTE | 2019-11-22 22:49 | HP ---
CHIEF COMPLAINT: chest pain for 2 days PCP:Dr. Schwartz HISTORY OF PRESENT ILLNESS: 64 year old female with past medical history of insulin-dependent diabetes, CAD sp CABG in 2003(does not follow up with Cardiology),hyperlipidemia and hypertension who presented with complaint of worsening chest pain with exertion which started 2 days ago. She reported 2 days ago she was putting up decorations on the tree when she started to feel intermittent chest pressure and sob. She described chest pain as dull. Chest pain is nonreproducible. Currently she continues to report mild chest discomfort. She reports pain is worse on deep breathing. She denies nausea, vomiting, diaphoresis or radiation to her left arm, neck or jaw. She went to her doctor's office for insulin refill earlier today who had a EKG performed and there were changes noted from prior EKG and she was referred to the ER. The patient also endorses some increased leg swelling over the last several weeks and taking oral lasix. ER course was notable for: (1)normal troponin X2, EKG with T wave changes (2)CXR unremarkable Recent Travel: no PAST MEDICAL HISTORY: IDDM CAD hx of CABG in 2003 Hyperlipidemia Hypertension PAST SURGICAL HISTORY: CABG in 2003 Social History: Smoking: no Alcohol:no Drugs: no Allergies No Known Allergies Allergy (Verified 11/22/19 12:31) HOME MEDICATIONS: Home Medications Medication Instructions Recorded Aspirin 81 mg PO DAILY 03/10/19 Furosemide [Lasix] 20 mg PO DAILY 03/10/19 Olmesartan/Hydrochlorothiazide 1 each PO DAILY 03/10/19 [Olmesartan-Hctz 20-12.5 mg Tab] Semaglutide [Ozempic] 0.25 mg SQ WEEKLY 03/10/19 metFORMIN HCL [Metformin HCl ER] 500 mg PO BID 03/10/19 Dapagliflozin Propanediol [Farxiga] 5 mg PO DAILY 05/10/19 REVIEW OF SYSTEMS CONSTITUTIONAL: Absent: fever, chills, diaphoresis, generalized weakness, malaise, loss of appetite, weight change HEENT: Absent: rhinorrhea, nasal congestion, throat pain, throat swelling, difficulty swallowing, mouth swelling, ear pain, eye pain, visual changes CARDIOVASCULAR: Absent: chest pain, syncope, palpitations, irregular heart rate, lightheadedness , peripheral edema RESPIRATORY: Absent: cough, shortness of breath, dyspnea with exertion, orthopnea, wheezing, stridor, hemoptysis GASTROINTESTINAL: Absent: abdominal pain, abdominal distension, nausea, vomiting, diarrhea, constipation, melena, hematochezia GENITOURINARY: Absent: dysuria, frequency, urgency, hesitancy, hematuria, flank pain, genital pain MUSCULOSKELETAL: Absent: myalgia, arthralgia, joint swelling, back pain, neck pain SKIN: Absent: rash, itching, pallor HEMATOLOGIC/IMMUNOLOGIC: Absent: easy bleeding, easy bruising, lymphadenopathy, frequent infections ENDOCRINE: Absent: unexplained weight gain, unexplained weight loss, heat intolerance, cold intolerance NEUROLOGIC: Absent: headache, focal weakness or paresthesias, dizziness, unsteady gait, seizure, mental status changes, bladder or bowel incontinence, right hand numbness PSYCHIATRIC: Absent: anxiety, depression, suicidal or homicidal ideation, hallucinations. PHYSICAL EXAMINATION Vital Signs - 24 hr 11/22/19 11/22/19 11/22/19 12:31 16:44 19:50 Temperature 97.9 F 98.2 F 98.3 F Pulse Rate 95 H Pulse Rate [ 72 76 Right Radial] Respiratory 18 16 18 Rate Blood Pressure 136/70 Blood Pressure 160/82 134/68 [Right Arm] O2 Sat by Pulse 99 99 98 Oximetry (%) GENERAL: awake alert and fully oriented no acute distress HEAD: normal EYES: pupils equal round and reactive to light EARS, NOSE, THROAT: ears normal nares patent NECK: no JVD LUNGS: breath sounds equal and clear to auscultation bilaterally no wheezes no crackles no accessory muscle use HEART: regular rate and rhythm normal S1 and S2 ABDOMEN: soft nontender not distended normoactive bowel sounds MUSCULOSKELETAL: normal range of motion UPPER EXTREMITIES: 2+ pulses warm well-perfused no cyanosis LOWER EXTREMITIES: 2+ pulses, warm on palpation +lower extremity edema NEUROLOGICAL: no neuro focal deficits PSYCHIATRIC: cooperative good eye contact appropriate mood and affect SKIN: warm dry normal turgor no rashes or lesions Laboratory Results - last 24 hr 11/22/19 11/22/19 11/22/19 14:00 14:00 14:00 WBC 7.2 RBC 4.23 Hgb 12.5 Hct 37.7 MCV 89.2 MCH 29.7 MCHC 33.3 RDW 14.1 Plt Count 276 MPV 7.8 Absolute Neuts (auto) 3.7 Neutrophils % 51.4 Lymphocytes % 38.4 Monocytes % 7.6 Eosinophils % 1.9 Basophils % 0.7 Nucleated RBC % 0 PT with INR INR Sodium 143 Potassium 3.3 L Chloride 104 Carbon Dioxide 31 Anion Gap 7 L BUN 24.9 H Creatinine 0.9 Est GFR (CKD-EPI)AfAm 77.22 Est GFR (CKD-EPI)NonAf 66.63 POC Glucometer Random Glucose 44 L* Calcium 10.0 Total Bilirubin 0.4 AST 25 ALT 39 Alkaline Phosphatase 84 Creatine Kinase 272 H Creatine Kinase Index 1.2 CK-MB (CK-2) 3.3 Troponin I < 0.02 B-Natriuretic Peptide 11.7 Total Protein 7.3 Albumin 4.2 11/22/19 11/22/19 11/22/19 14:00 16:07 16:39 WBC RBC Hgb Hct MCV MCH MCHC RDW Plt Count MPV Absolute Neuts (auto) Neutrophils % Lymphocytes % Monocytes % Eosinophils % Basophils % Nucleated RBC % PT with INR 11.20 INR 0.95 Sodium Potassium Chloride Carbon Dioxide Anion Gap BUN Creatinine Est GFR (CKD-EPI)AfAm Est GFR (CKD-EPI)NonAf POC Glucometer 66 112 Random Glucose Calcium Total Bilirubin AST ALT Alkaline Phosphatase Creatine Kinase Creatine Kinase Index CK-MB (CK-2) Troponin I B-Natriuretic Peptide Total Protein Albumin 11/22/19 19:50 WBC RBC Hgb Hct MCV MCH MCHC RDW Plt Count MPV Absolute Neuts (auto) Neutrophils % Lymphocytes % Monocytes % Eosinophils % Basophils % Nucleated RBC % PT with INR INR Sodium Potassium Chloride Carbon Dioxide Anion Gap BUN Creatinine Est GFR (CKD-EPI)AfAm Est GFR (CKD-EPI)NonAf POC Glucometer Random Glucose Calcium Total Bilirubin AST ALT Alkaline Phosphatase Creatine Kinase Creatine Kinase Index CK-MB (CK-2) Troponin I < 0.02 B-Natriuretic Peptide Total Protein Albumin ASSESSMENT/PLAN: 64 year old female with past medical history of insulin-dependent diabetes, CAD sp CABG in 2003(does not follow up with Cardiology),hyperlipidemia and hypertension who presented with complaint of worsening chest pain with exertion which started 2 days ago. ER course was notable for normal troponin X2 and unremarkable CXR. 1. Chest Pain R/O ACS She continues to be symptomatic w/ mild chest discomfort and has lower extremity swelling on clinical exam troponin X3 negative, EKG with T wave changes in lateral leads, BNP normal --continue to trend troponins --topical nitropast 1/2/ inch ordered --continue with asa and statin --echocardiogram ordered to evaluate LVEF, wall motion and valvular anatomy --Cardiology- Dr. Mustafa consulted --D-Dimer elevated, CTA of chest to exclude PE is pending 2. Hx CAD w/ prior CABG --continue with asa --add statin therapy --continue with valsartan,HCTZ and oral lasix 3. Hyperlipidemia --will add statin therapy 4. Hypertension controlled --continue with valsartan and HCTZ --continue with oral lasix 5. IDDM --bgm before meals and at bedtime --insulin as per sliding scale --check hgb a1c DVT -- TEDS FEN --monitor electrolytes --low sodium/ADA diet Visit type - Emergency Visit Emergency Visit: Yes ED Registration Date: 11/22/19 Care time: The patient presented to the Emergency Department on the above date and was hospitalized for further evaluation of their emergent condition. - New Patient This patient is new to me today: Yes Date on this admission: 11/23/19 - Critical Care Critical Care patient: No
[2019-11-22] MEDS: INSULIN (NOVOLOG) ASPART 100 UNITS/ML 10ML VIAL SQ SCH (23:50)
[2019-11-23 02:37] VITALS: BMI 36.1
[2019-11-23] MEDS: INSULIN (NOVOLOG) ASPART 100 UNITS/ML 10ML VIAL SQ SCH ×3 (06:13→17:00)
[2019-11-23 06:43] LABS: HEMATOCRIT 34.3 % (32.4-45.2); HEMOGLOBIN 11.9 GM/dL (10.7-15.3); MCH 30.4 pg (25.7-33.7); MCHC 34.7 g/dl (32.0-36.0); MEAN CELL VOLUME 87.7 fl (80-96); MEAN PLT VOLUME 7.8 fl (7.5-11.1); PLATELET COUNT 237 K/MM3 (134-434); RBC 3.92 M/mm3 (3.60-5.2); RDW 14.3 % (11.6-15.6); WHITE BLOOD COUNT 6.7 K/mm3 (4.0-10.0)
[2019-11-23 07:00] LABS: BLOOD UREA NITROGEN 20.7 mg/dL (7-18); CALCIUM 9.2 mg/dL (8.5-10.1); CREATININE 0.8 mg/dL (0.55-1.3); POTASSIUM 3.3 mmol/L (3.5-5.1)
[2019-11-23] MEDS ORDERED: POTASSIUM CHLORIDE TABS 20 MEQ TABLET.ER (FP) PO ONE (08:08)
[2019-11-23] MEDS ORDERED: HYDROCHLOROTHIAZIDE 12.5 MG CAPSULE (FP) PO SCH (10:00)
[2019-11-23] MEDS ORDERED: ASPIRIN 81 MG CHEWABLE TABLETS PO SCH (10:00)
[2019-11-23] MEDS ORDERED: VALSARTAN 160 MG TABLET (UD) PO SCH ×2 (10:00)
[2019-11-23] MEDS ORDERED: ENOXAPARIN NA (PORCINE) 100 MG/1 ML DISP.SYRIN SQ SCH (10:00)
[2019-11-23] MEDS ORDERED: FUROSEMIDE 20 MG TABLET (FP) PO SCH (10:00)
--- NOTE | 2019-11-23 10:14 | EKG ---
Test Reason : Blood Pressure : / mmHG Vent. Rate : 086 BPM Atrial Rate : 086 BPM P-R Int : 152 ms QRS Dur : 084 ms QT Int : 400 ms P-R-T Axes : 052 031 124 degrees QTc Int : 478 ms NORMAL SINUS RHYTHM MINIMAL VOLTAGE CRITERIA FOR LVH, MAY BE NORMAL VARIANT T WAVE ABNORMALITY, CONSIDER LATERAL ISCHEMIA PROLONGED QT ABNORMAL ECG WHEN COMPARED WITH ECG OF 22-NOV-2019 17:50, QT HAS LENGTHENED Confirmed by Booker Powers MD ([id number]) on 11/23/2019 10:14:22 AM Referred By: ANANT BRAMBILA MRUK Confirmed By:Booker Powers MD
--- NOTE | 2019-11-23 10:15 | EKG ---
Test Reason : Blood Pressure : / mmHG Vent. Rate : 080 BPM Atrial Rate : 080 BPM P-R Int : 154 ms QRS Dur : 086 ms QT Int : 348 ms P-R-T Axes : 043 023 130 degrees QTc Int : 401 ms NORMAL SINUS RHYTHM POSSIBLE LEFT ATRIAL ENLARGEMENT LEFT VENTRICULAR HYPERTROPHY T WAVE ABNORMALITY, CONSIDER LATERAL ISCHEMIA ABNORMAL ECG WHEN COMPARED WITH ECG OF 10-MAY-2019 15:03, QT HAS SHORTENED Confirmed by Booker Powers MD ([id number]) on 11/23/2019 10:15:17 AM Referred By: Confirmed By:Booker Powers MD
--- NOTE | 2019-11-23 11:39 | PN ---
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 Problem List - Problems (1) Pulmonary embolism Code(s): I26.99 - OTHER PULMONARY EMBOLISM WITHOUT ACUTE COR PULMONALE (2) Diabetes Code(s): E11.9 - TYPE 2 DIABETES MELLITUS WITHOUT COMPLICATIONS Qualifiers: Diabetes mellitus type: type 2 Diabetes mellitus longterm insulin use: with longterm use Diabetes mellitus complication status: without complication Qualified Code(s): E11.9 - Type 2 diabetes mellitus without complications; Z79.4 - shelter (current) use of insulin (3) Hypertension Code(s): I10 - ESSENTIAL (PRIMARY) HYPERTENSION Qualifiers: Hypertension type: essential hypertension Qualified Code(s): I10 - Essential (primary) hypertension (4) HTN (hypertension) Code(s): I10 - ESSENTIAL (PRIMARY) HYPERTENSION (5) Pulmonary embolism Code(s): I26.99 - OTHER PULMONARY EMBOLISM WITHOUT ACUTE COR PULMONALE
--- NOTE | 2019-11-23 12:12 | EKG ---
Test Reason : Blood Pressure : / mmHG Vent. Rate : 090 BPM Atrial Rate : 090 BPM P-R Int : 154 ms QRS Dur : 086 ms QT Int : 378 ms P-R-T Axes : 052 027 144 degrees QTc Int : 462 ms NORMAL SINUS RHYTHM POSSIBLE LEFT ATRIAL ENLARGEMENT ABNORMAL ECG WHEN COMPARED WITH ECG OF 10-MAY-2019 15:03, T WAVE INVERSION MORE EVIDENT IN LATERAL LEADS Confirmed by MD Gregorio, Jaspreet ([id number]) on 11/23/2019 12:11:56 PM Referred By: Confirmed By:Jaspreet Perkins MD
--- NOTE | 2019-11-23 12:25 | CON.CARD ---
Consult Consult Specialty:: Cardiology Referred by:: Hospitalist Medicine Reason for Consultation:: Acute PE - History of Present Illness Chief Complaint: Chest pain and dyspnea History of Present Illness: 64F h/o CAD s/p CABG in 2003, IDDM, HLD, HTN presented with worsening dull chest pain with exertion and dyspnea starting 2 days ago worse with deep breathing. She denies palpitations, near or true syncope, does report increased LE edema on diuretics. Denies prolonged immobility, personal or family h/o thrombophilia, found to have acute RUL PE, RV not dilated. - History Source History Provided By: Patient Limitations to Obtaining History: No Limitations - Past Medical History Cardio/Vascular: Yes: CAD, HTN, Hyperlipdemia, CT Gastrointestinal: Yes: Other (SBO s/p surgical resection 2003 [facility] ("they went in twice"); abd incisional hernias) ...: No Infectious Disease: Yes: Other (sternal wound infection 2003) Endocrine: Yes: Diabetes Mellitus - Past Surgical History Past Surgical History: Yes: CABG (triple bypass), Cholecystectomy (laparoscopic) , Hysterectomy - Alcohol/Substance Use Hx Alcohol Use: Yes (rare glass of wine) History of Substance Use: reports: None - Smoking History Smoking history: Former smoker Have you smoked in the past 12 months: No If you are a former smoker, when did you quit?: 1998 - Social History Usual Living Arrangement: Alone ADL: Independent Occupation: retired [employer] History of Recent Travel: No Home Medications - Allergies Allergies/Adverse Reactions: Allergies Allergy/AdvReac Type Severity Reaction Status Date / Time No Known Allergies Allergy Verified 11/22/19 12:31 - Home Medications Home Medications: Ambulatory Orders Aspirin 81 mg PO DAILY 03/10/19 Furosemide [Lasix] 20 mg PO DAILY 03/10/19 Semaglutide [Ozempic] 0.25 mg SQ WEEKLY 03/10/19 metFORMIN HCL [Metformin HCl ER] 500 mg PO BID 03/10/19 Dapagliflozin Propanediol [Farxiga] 5 mg PO DAILY 05/10/19 Atorvastatin Ca [Lipitor] 20 mg PO HS tablet 11/23/19 Valsartan [Diovan] 320 mg PO DAILY #30 tablet 11/23/19 Review of Systems - Review of Systems Cardiovascular: reports: Chest Pain Respiratory: reports: Exercise Intolerance, SOB, SOB on Exertion Vital Signs: Vital Signs Temperature 98 F 11/23/19 09:54 Pulse Rate 93 H 11/23/19 09:54 Respiratory Rate 20 11/23/19 09:54 Blood Pressure 142/89 11/23/19 09:54 O2 Sat by Pulse Oximetry (%) 97 11/23/19 10:26 Constitutional: Yes: No Distress, Calm Neck: Yes: Supple Respiratory: Yes: Regular, CTA Bilaterally Gastrointestinal: Yes: Normal Bowel Sounds, Soft Cardiovascular: Yes: Regular Rate and Rhythm JVD: No Carotid Bruit: No Heart Sounds: Yes: S1, S2 Edema: No - Other Data Labs, Other Data: CBC, BMP 11/23/19 06:00 11/23/19 06:00 INR, PTT INR 0.95 (0.83-1.09) 11/22/19 14:00 Troponin, BNP 11/22/19 11/22/19 11/22/19 14:00 14:00 19:50 Troponin I < 0.02 < 0.02 B-Natriuretic Peptide 11.7 11/22/19 23:30 Troponin I < 0.02 B-Natriuretic Peptide Troponin, BNP 11/22/19 11/22/19 11/22/19 14:00 14:00 19:50 Troponin I < 0.02 < 0.02 B-Natriuretic Peptide 11.7 11/22/19 23:30 Troponin I < 0.02 B-Natriuretic Peptide Problem List - Problems (1) Coronary artery disease Code(s): I25.10 - ATHSCL HEART DISEASE OF [place] CORONARY ARTERY W/O ANG PCTRS Qualifiers: Coronary Disease-Associated Artery/Lesion type: [place] artery [place] vs. transplanted heart: [place] heart Associated angina: without angina Qualified Code(s): I25.10 - Atherosclerotic heart disease of [place] coronary artery without angina pectoris (2) S/P CABG (coronary artery bypass graft) Code(s): Z95.1 - PRESENCE OF AORTOCORONARY BYPASS GRAFT (3) HTN (hypertension) Code(s): I10 - ESSENTIAL (PRIMARY) HYPERTENSION Qualifiers: Hypertension type: essential hypertension Qualified Code(s): I10 - Essential (primary) hypertension (4) Pulmonary embolism Code(s): I26.99 - OTHER PULMONARY EMBOLISM WITHOUT ACUTE COR PULMONALE Qualifiers: Pulmonary embolism type: single subsegmental (without acute cor pulmonale) Qualified Code(s): I26.93 - Single subsegmental pulmonary embolism without acute cor pulmonale (5) Hyperlipidemia Code(s): E78.5 - HYPERLIPIDEMIA, UNSPECIFIED (6) Diabetes Code(s): E11.9 - TYPE 2 DIABETES MELLITUS WITHOUT COMPLICATIONS Qualifiers: Diabetes mellitus type: type 2 Diabetes mellitus halfway insulin use: with halfway use Diabetes mellitus complication status: without complication Qualified Code(s): E11.9 - Type 2 diabetes mellitus without complications; Z79.4 - moth exterminator (current) use of insulin Assessment/Plan Echo 11/23/2019 Normal LV size with mild cLVH and normal LV fxn, abnl LV compliance, normal atrial sizes, tr TR Vasc US: 11/23/2019 No DVT bilaterally Chest CTA: 11/23/2019 RUL PE, bibasilar ATX, small hiatal hernia Echo 05/2019 nl LV function, nl RV, tr MR Mibi 2015 no ischemia 1. Dyspnea and chest pain referable to acute unprovoked pulmonary embolism 2. CAD s/p CABG 3. Type 2 DM 4. HTN 5. Hyperlipidemia 6. Suspected OSAS 7. Diastolic dysfunction P:1. Lovenox->Eliquis 10 bid, normal trops and BNP with lack of RV involvement is reassuring 2. Hypercoagulable evaluation and age appropriate cancer screening as outpatient 3. Sleep study as outpatient 4. Continue Benicar HCT 19/11,5 qd, Lasix 20 qd, d/c ASA while on Eliquis as CAD is stable, avoid NSAIDs, replete K 5. Thank you for consultative opportunity
--- NOTE | 2019-11-23 12:30 | ECHO ---
Version: 1 Name: DYAN EGAN Exam: Adult Echocardiogram Study Date: 11/23/2019, 10:20 AM Age: 64 Years MMode/2D Measurements & Calculations IVSd: 1.14 cm LVIDs: 2.42 cm LVIDd: 4.9 cm LVPWd: 1.06 cm ACS: 1.59 cm Ao root diam: 3.5 cm LA dimension: 3.9 cm Doppler Measurements & Calculations MV E max rolf: 65.2 cm/sec Med E/e': 16.3 MV A max rolf: 103.4 cm/sec Med Peak E' Rolf: 4.0 cm/sec MV E/A: 0.63 Lat E/e': 8.8 Lat Peak E' Rolf: 7.4 cm/sec Ao max P.6 mmHg Ao mean P.8 mmHg Ao V2 max: 154.7 cm/sec TR max rolf: 233.5 cm/sec TR max P.8 mmHg Procedure A two-dimensional transthoracic echocardiogram with color flow and Doppler was performed. The patien t was in normal sinus rhythm during the exam. Left Ventricle The left ventricle is normal in size. There is mild concentric left ventricular hypertrophy. The lef t ventricular ejection fraction is normal. Ejection Fraction = 65%. Grade I diastolic dysfunction, (ab normal relaxation pattern). The left ventricular wall motion is normal. Right Ventricle The right ventricle is normal in size and function. Atria Normal left and right atrial size and function. Mitral Valve The mitral valve is grossly normal. There is trace mitral regurgitation. Tricuspid Valve The tricuspid valve is not well visualized, but is grossly normal. There is trace tricuspid regurgit ation. Right ventricular systolic pressure is normal. Aortic Valve The aortic valve is trileaflet. No hemodynamically significant valvular aortic stenosis. Pulmonic Valve The pulmonic valve is not well visualized. Great Vessels The aortic root is normal size. Pericardium/Pleura There is no pericardial effusion. Summary Statements The left ventricle is normal in size. There is mild concentric left ventricular hypertrophy. The left ventricular ejection fraction is normal. Grade I diastolic dysfunction, (abnormal relaxation pattern). Normal left and right atrial size and function. The mitral valve is grossly normal. There is trace tricuspid regurgitation. Right ventricular systolic pressure is normal. No hemodynamically significant valvular aortic stenosis. MD Jaspreet Perkins 11/23/2019, 12:30 PM Ordering Physician: Mary Moore Performed By: Michelle Corrales
--- NOTE | 2019-11-23 12:55 | PN ---
Teaching Attending Note Name of Resident: Ken Caal ATTENDING PHYSICIAN STATEMENT I saw and evaluated the patient. I reviewed the resident's note and discussed the case with the resident. I agree with the resident's findings and plan as documented. SUBJECTIVE: Patient is comfortable with no acute distress. no shortness of breath, no chest pain. Vital Signs Temperature 98 F 11/23/19 09:54 Pulse Rate 93 H 11/23/19 09:54 Respiratory Rate 20 11/23/19 09:54 Blood Pressure 142/89 11/23/19 09:54 O2 Sat by Pulse Oximetry (%) 97 11/23/19 10:26 GENERAL: The patient is awake, alert, and fully oriented, in no acute distress. HEAD: Normal with no signs of trauma. EYES: PERRL, extraocular movements intact, sclera anicteric, conjunctiva clear. ENT: Ears normal, oropharynx clear without exudates, moist mucous membranes. NECK: Trachea midline, full range of motion, supple. LUNGS: Breath sounds equal, clear to auscultation bilaterally, no wheezes, no crackles, no accessory muscle use. HEART: Regular rate and rhythm, S1, S2 positive, no rub or gallop. ABDOMEN: Soft, nontender, nondistended, normoactive bowel sounds, no guarding, no rebound, no hepatosplenomegaly, no masses. EXTREMITIES: 2+ pulses, warm, well-perfused, no edema. NEUROLOGICAL: Cranial nerves II through XII grossly intact. Normal speech, gait not observed. PSYCH: Normal mood, normal affect. SKIN: Warm, dry, normal turgor, no rashes or lesions noted CBCD WBC 6.7 K/mm3 (4.0-10.0) 11/23/19 06:00 RBC 3.92 M/mm3 (3.60-5.2) 11/23/19 06:00 Hgb 11.9 GM/dL (10.7-15.3) 11/23/19 06:00 Hct 34.3 % (32.4-45.2) 11/23/19 06:00 MCV 87.7 fl (80-96) 11/23/19 06:00 MCHC 34.7 g/dl (32.0-36.0) 11/23/19 06:00 RDW 14.3 % (11.6-15.6) 11/23/19 06:00 Plt Count 237 K/MM3 (134-434) 11/23/19 06:00 MPV 7.8 fl (7.5-11.1) 11/23/19 06:00 CMP Sodium 140 mmol/L (136-145) 11/23/19 06:00 Potassium 3.3 mmol/L (3.5-5.1) L 11/23/19 06:00 Chloride 105 mmol/L (98-107) 11/23/19 06:00 Carbon Dioxide 29 mmol/L (21-32) 11/23/19 06:00 Anion Gap 7 MMOL/L (8-16) L 11/23/19 06:00 BUN 20.7 mg/dL (7-18) H 11/23/19 06:00 Creatinine 0.8 mg/dL (0.55-1.3) 11/23/19 06:00 Random Glucose 64 mg/dL (74-106) L 11/23/19 06:00 Calcium 9.2 mg/dL (8.5-10.1) 11/23/19 06:00 Total Bilirubin 0.4 mg/dL (0.2-1) 11/22/19 14:00 AST 25 U/L (15-37) 11/22/19 14:00 ALT 39 U/L (13-61) 11/22/19 14:00 Alkaline Phosphatase 84 U/L (45-117) 11/22/19 14:00 Total Protein 7.3 g/dl (6.4-8.2) 11/22/19 14:00 Albumin 4.2 g/dl (3.4-5.0) 11/22/19 14:00 CARDIAC ENZYMES Creatine Kinase 272 U/L (26-192) H 11/22/19 14:00 Troponin I < 0.02 ng/ml (0.00-0.05) 11/22/19 23:30 Current Medications Generic Name Dose Route Start Last Admin Trade Name Freq PRN Reason Stop Dose Admin Aspirin 81 mg 11/23/19 10:00 11/23/19 09:48 Asa - PO 81 mg DAILY [facility] Administration Atorvastatin Calcium 20 mg 11/23/19 22:00 Lipitor - PO HS [facility] Enoxaparin Sodium 100 mg 11/23/19 10:00 11/23/19 09:52 Lovenox - SQ 100 mg BID FIOR Administration Furosemide 20 mg 11/23/19 10:00 11/23/19 09:50 Lasix - PO 20 mg DAILY FIOR Administration Insulin Aspart 0 units 11/22/19 22:00 11/23/19 11:18 Novolog Vial SQ Not Given ACHS [facility] Protocol Valsartan 320 mg 11/23/19 10:00 11/23/19 09:49 Diovan - PO 320 mg DAILY [facility] Administration Home Medications Medication Instructions Recorded Aspirin 81 mg PO DAILY 03/10/19 Furosemide [Lasix] 20 mg PO DAILY 03/10/19 Olmesartan/Hydrochlorothiazide 1 each PO DAILY 03/10/19 [Olmesartan-Hctz 20-12.5 mg Tab] Semaglutide [Ozempic] 0.25 mg SQ WEEKLY 03/10/19 metFORMIN HCL [Metformin HCl ER] 500 mg PO BID 03/10/19 Dapagliflozin Propanediol [Farxiga] 5 mg PO DAILY 05/10/19 Naproxen Sodium [Aleve] 220 mg PO DAILY PRN MDD 440 mg 11/23/19 EKG: sinus, prolonged QTc 483 ms, nonspecific T wave changes, stable compared to prior Echo 05/2019 nl LV function, nl RV, tr MR mibi 2015 no ischemia Assessment and Plan: Patient is a 64 year old female with PMHx of insulin-dependent diabetes, CAD sp CABG in 2003(does not follow up with Cardiology),hyperlipidemia and hypertension who presented with complaint of worsening chest pain with exertion which started 2 days ago. CTA was found to be positive for PE # acute PE most likely unprovoked : on Lovenox 100mg sq bid, will dc her on eliquis 10mg bid x 7 days then 5mg bid , follow up with pulmonary as an outpatient duplex is negative. Echo as above ,W/U FOR HYPERCOAGULABLE STATE OUTPATIENT, follow up with hematology as an outpatient AGE APPROPRIATE CANCER SCREENING, OUTPATIENT SLEEP STUDIES, will start with Eliquis 10mg bid x 7 days then 5mg po bid afterward. # Hx of HTN : continue home meds except Htcz, given diovan 320mg daily , continue low dose lasix #T2DM continue home meds will dc patient home.
--- NOTE | 2019-11-23 15:54 | CONSULT ---
Consultation: REQUESTING PROVIDER:primary team CONSULT REQUEST: We have been asked to medically evaluate this patient for ( unprovoked PE ). HISTORY OF PRESENT ILLNESS: 64 year old female with past medical history of insulin-dependent diabetes, CAD sp CABG in 2003(does not follow up with Cardiology),hyperlipidemia and hypertension who presented with complaint of worsening chest pain with exertion which started 3 days ago, ,ed sternal 9/10 local non radiating , worsening with deep breath , asscocaited with sob , dry cough , but no fever or chills pt reports worsening orthopnea , start using 3 pillows at night pt denies any sedentary life style , denies any weight changes , any history of cancer in the family pt denies any abdominal pain , N/V/D/C pt reports LE swelling andfeels fatigue out of energy. denies nay easy bleeding or heavy alcohol use REVIEW OF SYSTEMS: CONSTITUTIONAL: Absent: fever, chills, diaphoresis, generalized weakness, malaise, loss of appetite, weight change HEENT: Absent: rhinorrhea, nasal congestion, throat pain, throat swelling, difficulty swallowing, mouth swelling, ear pain, eye pain, visual changes CARDIOVASCULAR: Absent: chest pain, syncope, palpitations, irregular heart rate, lightheadedness , peripheral edema RESPIRATORY: Absent: cough, shortness of breath, dyspnea with exertion, orthopnea, wheezing, stridor, hemoptysis GASTROINTESTINAL: Absent: abdominal pain, abdominal distension, nausea, vomiting, diarrhea, constipation, melena, hematochezia GENITOURINARY: Absent: dysuria, frequency, urgency, hesitancy, hematuria, flank pain, genital pain MUSCULOSKELETAL: Absent: myalgia, arthralgia, joint swelling, back pain, neck pain SKIN: Absent: rash, itching, pallor HEMATOLOGIC/IMMUNOLOGIC: Absent: easy bleeding, easy bruising, lymphadenopathy, frequent infections ENDOCRINE: Absent: unexplained weight gain, unexplained weight loss, heat intolerance, cold intolerance NEUROLOGIC: Absent: headache, focal weakness or paresthesias, dizziness, unsteady gait, seizure, mental status changes, bladder or bowel incontinence PSYCHIATRIC: Absent: anxiety, depression, suicidal or homicidal ideation, hallucinations. PHYSICAL EXAMINATION Vital Signs - 24 hr 11/22/19 11/22/19 11/22/19 16:44 19:50 23:00 Temperature 98.2 F 98.3 F 98.2 F Pulse Rate 72 Pulse Rate [ 72 76 Right Radial] Respiratory 16 18 18 Rate Blood Pressure 149/74 Blood Pressure 160/82 134/68 [Right Arm] O2 Sat by Pulse 99 98 97 Oximetry (%) 11/23/19 11/23/19 11/23/19 00:22 05:30 09:54 Temperature 98.0 F 98.8 F 98 F Pulse Rate 70 74 93 H Pulse Rate [ Right Radial] Respiratory 18 18 20 Rate Blood Pressure 152/72 150/77 142/89 Blood Pressure [Right Arm] O2 Sat by Pulse Oximetry (%) 11/23/19 11/23/19 10:26 14:24 Temperature 98.1 F Pulse Rate 74 Pulse Rate [ Right Radial] Respiratory 16 Rate Blood Pressure 134/91 Blood Pressure [Right Arm] O2 Sat by Pulse 97 Oximetry (%) GENERAL: Awake, alert, and fully oriented, in no acute distress. HEAD: Normal with no signs of trauma. EYES: Pupils equal, round and reactive to light, extraocular movements intact, sclera anicteric, NECK: supple without lymphadenopathy, LUNGS: Breath sounds equal, clear to auscultation bilaterally. No wheezes, and no crackles. No accessory muscle use.med sternal surgical scar HEART: Regular rate and rhythm, normal S1 and S2 without murmur, rub or gallop. ABDOMEN: obese Soft, nontender, not distended, normoactive bowel sounds, longtudianl med surgical scar MUSCULOSKELETAL: Normal range of motion at all joints. No bony deformities or tenderness. No CVA tenderness. UPPER EXTREMITIES: 2+ pulses, warm, well-perfused. No cyanosis. No clubbing. Cap refill <2 seconds. No peripheral edema. LOWER EXTREMITIES: 2+ pulses, warm, well-perfused. No calf tenderness. No peripheral edema. NEUROLOGICAL: Cranial nerves II-XII intact. Normal speech. PSYCHIATRIC: Cooperative. Good eye contact. SKIN: Warm, dry, normal turgor, Laboratory Results - last 24 hr 11/22/19 11/22/19 11/22/19 14:00 14:00 16:07 WBC RBC Hgb Hct MCV MCH MCHC RDW Plt Count MPV D-Dimer Sodium Potassium Chloride Carbon Dioxide Anion Gap BUN Creatinine Est GFR (CKD-EPI)AfAm Est GFR (CKD-EPI)NonAf POC Glucometer 66 Random Glucose 44 L* Hemoglobin A1c % Calcium Creatine Kinase Index 1.2 CK-MB (CK-2) 3.3 Troponin I 11/22/19 11/22/19 11/22/19 16:39 19:50 22:35 WBC RBC Hgb Hct MCV MCH MCHC RDW Plt Count MPV D-Dimer 1097 H Sodium Potassium Chloride Carbon Dioxide Anion Gap BUN Creatinine Est GFR (CKD-EPI)AfAm Est GFR (CKD-EPI)NonAf POC Glucometer 112 Random Glucose Hemoglobin A1c % Calcium Creatine Kinase Index CK-MB (CK-2) Troponin I < 0.02 11/22/19 11/22/19 11/23/19 23:30 23:49 05:29 WBC RBC Hgb Hct MCV MCH MCHC RDW Plt Count MPV D-Dimer Sodium Potassium Chloride Carbon Dioxide Anion Gap BUN Creatinine Est GFR (CKD-EPI)AfAm Est GFR (CKD-EPI)NonAf POC Glucometer 94 47 Random Glucose Hemoglobin A1c % Calcium Creatine Kinase Index CK-MB (CK-2) Troponin I < 0.02 11/23/19 11/23/19 11/23/19 05:31 06:00 06:00 WBC 6.7 RBC 3.92 Hgb 11.9 Hct 34.3 MCV 87.7 MCH 30.4 MCHC 34.7 RDW 14.3 Plt Count 237 MPV 7.8 D-Dimer Sodium 140 Potassium 3.3 L Chloride 105 Carbon Dioxide 29 Anion Gap 7 L BUN 20.7 H Creatinine 0.8 Est GFR (CKD-EPI)AfAm 89.04 Est GFR (CKD-EPI)NonAf 76.83 POC Glucometer 45 Random Glucose 64 L Hemoglobin A1c % Calcium 9.2 Creatine Kinase Index CK-MB (CK-2) Troponin I 11/23/19 11/23/19 11/23/19 06:00 06:39 11:16 WBC RBC Hgb Hct MCV MCH MCHC RDW Plt Count MPV D-Dimer Sodium Potassium Chloride Carbon Dioxide Anion Gap BUN Creatinine Est GFR (CKD-EPI)AfAm Est GFR (CKD-EPI)NonAf POC Glucometer 133 174 Random Glucose Hemoglobin A1c % 8.4 H Calcium Creatine Kinase Index CK-MB (CK-2) Troponin I Active Medications Generic Name Dose Route Start Last Admin Trade Name Freq PRN Reason Stop Dose Admin Aspirin 81 mg 11/23/19 10:00 11/23/19 09:48 Asa - PO 81 mg DAILY [facility] Administration Atorvastatin Calcium 20 mg 11/23/19 22:00 Lipitor - PO HS [facility] Enoxaparin Sodium 100 mg 11/23/19 10:00 11/23/19 09:52 Lovenox - SQ 100 mg BID FIOR Administration Furosemide 20 mg 11/23/19 10:00 11/23/19 09:50 Lasix - PO 20 mg DAILY FIOR Administration Insulin Aspart 0 units 11/22/19 22:00 11/23/19 11:18 Novolog Vial SQ Not Given ACHS [facility] Protocol Valsartan 320 mg 11/23/19 10:00 11/23/19 09:49 Diovan - PO 320 mg DAILY FIOR Administration CBC, BMP 11/23/19 06:00 11/23/19 06:00 ASSESSMENT/PLAN: 64 year old female with past medical history of insulin-dependent diabetes, CAD sp CABG in 2003(does not follow up with Cardiology),hyperlipidemia and hypertension who presented with complaint of worsening chest pain with exertion which started 3 days ago admitted for PE # RUL unprovoled PE * lovenox 100 mg SQ BID * apropriate cancer screening as out pt * pt reports last year colonoscopy with negative findings need to get the reports by the primary team , Ct chest low dose , Ct A/P * coagulopathy work up as out pt * echo with no right heart strain * cardiology and pulmonary consulted * LE duplex negative for DVT * Dispo: We will continue to follow the patient. Thank you for this consultative opportunity. Visit type - Emergency Visit Emergency Visit: Yes ED Registration Date: 11/23/19 Care time: The patient presented to the Emergency Department on the above date and was hospitalized for further evaluation of their emergent condition. - New Patient This patient is new to me today: Yes Date on this admission: 11/23/19 - Critical Care Critical Care patient: No ATTENDING PHYSICIAN STATEMENT I saw and evaluated the patient. I reviewed the resident's note and discussed the case with the resident. I agree with the resident's findings and plan as documented. SUBJECTIVE: OBJECTIVE: ASSESSMENT AND PLAN:
[2019-11-23 17:06] VITALS: TEMP 98.4
[2019-11-23 17:07] VITALS: BP 160/78; PULSE 89
--- NOTE | 2019-11-23 18:36 | PN ---
Progress Note (short form) - Note Progress Note: Patient seen and examined 64 year old, CAD, s/pCABG in 2003 , HPL, IDDM, enters with progressive SOB, dyspnea and chest pains. Found to have RUL pulmonary embolus. Placed on lovenox and now eliquis. Will f/u with Dr. Mendoza while on eliquis . Seems to be an unprovoked PE. For thrombophilia work up For cancer related age appropriate screening Can have work up done as outpatient.
[2019-11-23] MEDS ORDERED: ATORVASTATIN CA 20 MG TABLET (FP) PO SCH (22:00)
--- NOTE | 2019-11-24 22:21 | DS ---
Physical Exam: SUBJECTIVE: Patient seen and examined. She offers no complaints. She denies CP and SOB. OBJECTIVE: PHYSICAL EXAM GENERAL: The patient is awake, alert, and fully oriented, in no acute distress. HEAD: Normal with no signs of trauma. EYES: PERRL, extraocular movements intact, sclera anicteric, conjunctiva clear. ENT: Ears normal, nares patent, oropharynx clear without exudates, moist mucous membranes. NECK: Trachea midline, full range of motion, supple. LUNGS: Breath sounds equal, clear to auscultation bilaterally, no wheezes, no crackles, no accessory muscle use. HEART: Regular rate and rhythm, S1, S2 without murmur, rub or gallop. ABDOMEN: Soft, nontender, nondistended, normoactive bowel sounds, no guarding, no rebound, no hepatosplenomegaly, no masses. EXTREMITIES: 2+ pulses, warm, well-perfused, no edema. NEUROLOGICAL: Cranial nerves II through XII grossly intact. Normal speech, gait not observed. PSYCH: Normal mood, normal affect. SKIN: Warm, dry, normal turgor, no rashes or lesions noted. LABS HOSPITAL COURSE: Date of Admission:11/23/19 64 y/o female PMH HTN, HLD, insulin treated DM, and CAD s/p CABG in 2003 c/o chest pain with hx more consistent with musculoskeletal pain but but radiographic PE on CT. CT finding of small PE. LE duplex negative for DVT. Clinically stable. Apropriate cancer screening as out pt suggested. Additionally , coagulopathy work up as out pt. Echo with no right heart strain. DC to home on eliquis. Date of Discharge: 11/24/19 Minutes to complete discharge: 40 Discharge Summary Problems reviewed: Yes Reason For Visit: UNSTABLE ANGINA PECTORIS Condition: Improved - Instructions Disposition: HOME - Home Medications Comprehensive Discharge Medication List: Ambulatory Orders Aspirin 81 mg PO DAILY 03/10/19 Furosemide [Lasix] 20 mg PO DAILY 03/10/19 Semaglutide [Ozempic] 0.25 mg SQ WEEKLY 03/10/19 metFORMIN HCL [Metformin HCl ER] 500 mg PO BID 03/10/19 Dapagliflozin Propanediol [Farxiga] 5 mg PO DAILY 05/10/19 Apixaban [Eliquis] 5 mg PO BID #42 tablet 11/23/19 Apixaban [Eliquis] 10 mg PO BID #14 tablet 11/23/19 Atorvastatin Ca [Lipitor] 20 mg PO HS tablet 11/23/19 Insulin Degludec [Tresiba Flextouch U-200] 40 unit SQ HS #1 insuln.pen 11/23/19 Valsartan [Diovan] 320 mg PO DAILY #30 tablet 11/23/19 This patient is new to me today: No Emergency Visit: No Critical Care patient: No - Discharge Referral Referred to [facility] Med P.C.: No ATTENDING PHYSICIAN STATEMENT I saw and evaluated the patient. I reviewed the resident's note and discussed the case with the resident. I agree with the resident's findings and plan as documented. SUBJECTIVE: OBJECTIVE: ASSESSMENT AND PLAN:
--- NOTE | 2019-11-26 18:57 | CONS ---
DATE OF CONSULTATION: 11/23/2019 REASON FOR CONSULTATION: This 64-year-old female is being evaluated for a pulmonary embolism. In 2003, the patient had three surgeries including coronary artery bypass grafting. She has a history of insulin-dependent diabetes, hypertension and hyperlipidemia. The patient developed progressive dull substernal chest pain with shortness of breath over two to three days and was admitted to the hospital, where she was found to have a pulmonary embolism. This was noted to be a single submental subsegmental pulmonary embolism. There was a small filling defect in the right upper lobe pulmonary artery consistent with a pulmonary embolism, bibasilar atelectasis and a small hiatal hernia. PAST MEDICAL HISTORY: Hypertension, hyperlipidemia, insulin-dependent diabetes. PAST SURGICAL HISTORY: Coronary artery bypass grafting in 2003 and surgery for what sounds like bowel obstruction. The patient has a history of tubal ligation. FAMILY HISTORY: One sister with what sounds like a pulmonary embolism vs. an ME. Mother and father both had heart disease. There is no family history of cancer. ALLERGIES: There are no known allergies. CURRENT MEDICATIONS: Diovan 320 per day, Lovenox 100 b.i.d., which will be converted to Eliquis 5 b.i.d., Lipitor 20 a day, insulin, Lasix 20, aspirin 81. REVIEW OF SYSTEMS: The patient denies headaches, diplopia, epistaxis, dysphagia, shortness of breath, chest pain, nausea, vomiting, diarrhea or constipation. The patient had a colonoscopy four to five years ago. She had mammography within the past year. No dysuria or hematuria. No vaginal bleeding. Occasional numbness of the lower extremities. PHYSICAL EXAMINATION: VITALS: Blood pressure 160/78, pulse 89, respiratory rate 18, afebrile. HEENT: JESSICA, EOMs intact. Oropharynx is unremarkable. Upper and lower dentures. Tongue is papillated. NECK: Supple. No thyromegaly. LUNGS: Clear . CARDIOVASCULAR: Regular sinus rhythm. Sternotomy scar. BREASTS: No dominant masses. ABDOMEN: No masses or organomegaly. EXTREMITIES: There is lower extremity edema. LABORATORY: WBC 6.7, hematocrit 34, platelets 37 with normal differential. Chemistries: 140, K of 33, chloride of 105, CO2 of 29. GFR of 89. A1c of 8.4, calcium 9.2. AST of 25, ALT of 39. Alkaline phosphatase of 84. Protein of 7.3. . IMPRESSION: A 64-year-old with a pulmonary embolism and coronary artery disease, currently on Eliquis. This seems to be an unprovoked PE. The patient will need a malignancy workup as well as a thrombophilia workup as an outpatient. The patient will be maintained on Eliquis and followed by her primary care doctor, Dr. Jose Schwartz. SANJANA ELMORE M.D. [id number]
--- NOTE | 2019-11-26 19:00 | CONS ---
DATE OF CONSULTATION: 11/23/2019 PULMONARY CONSULTATION REFERRING PHYSICIAN: Cade Baldwin MD. HISTORY OF PRESENT ILLNESS: The patient is a 64-year-old female with a past medical history insulin dependent diabetes mellitus, ASHD status post CABG in 2003, hyperlipidemia, hypertension, nonsmoker, admitted to [facility] with complaint of 3-4 day history increasing shortness of breath, dyspnea on exertion, and chest pain. Patient states apparently putting up decorations when she started feeling intermittent chest pressure. She also complained of shortness of breath. She denied any fevers or chills, denies hemoptysis. States that her pain was increased with deep breathing. She presented to the emergency room with the above. Apparently she went to her doctor's office day of admission and EKG performed, there were changes noted, at which time she was referred to the ER. In the ER, she underwent a CTA of the chest revealed a right upper lobe pulmonary embolism. She was admitted, started on anticoagulation. Patient denies any sedentary lifestyle, denies any recent prolonged bedrest and/or surgery or car rides, or air travel. She states that her sister a year ago from acute pulmonary embolism. She denies any history of occupational exposure to chemicals and fumes. There is no history of respiratory failure, in the past declined ventilatory support. PAST MEDICAL HISTORY: Again, includes ASHD status post CABG, insulin dependent diabetes mellitus, hypertension, hyperlipidemia. REVIEW OF SYSTEMS: No orthopnea. No PND. Positive chest pain. SOCIAL HISTORY: Nonsmoker. No occupational exposures. FAMILY HISTORY: Sister of pulmonary embolism in 2012. CURRENT MEDICATIONS: Include , Lovenox, Lipitor, NovoLog, Lasix, and aspirin. PHYSICAL EXAMINATION: General: The patient is a well-developed, well-nourished female, awake and alert, in no acute distress. She is afebrile. Vital Signs: Blood pressure 142/89, respiratory rate 20, O2 saturation is 97%. HEENT: Normocephalic, atraumatic. Neck: Supple. Heart: Regular S1, S2. Chest: Clear. Abdomen: Soft, bowel sounds positive. Extremities: No cyanosis, positive edema. LABORATORY: BUN 20, creatinine 0.8, hemoglobin A1c is 8.4, D-dimer is 1097. WBC is 6.7, hemoglobin 11.9, hematocrit 34.3, platelet count of 237,000. Chest CT as noted earlier. IMPRESSION: 1. Dyspnea and chest pain secondary to acute pulmonary embolism unprovoked. 2. Arteriosclerotic heart disease status post coronary artery bypass graft. 3. Insulin dependent diabetes mellitus. 4. Hypertension. 5. Hyperlipidemia. 6. Suspected obstructive sleep apnea. Suggest extending anticoagulation, supplemental O2, duplex lower extremities, echocardiogram, workup for hypercoagulable state as outpatient, age-appropriate cancer screening. Also sleep study as outpatient. HOWIE GUNTER M.D. [id number]
== END 2019-11-23 19:05 | disposition home or self-care (01) | DRG 176 ==
LOC: JER 12:26 → JERBED 15:57 → J4S 23:03 → OBSVTOIN 11-23 09:03
PROVIDERS: ADMIT Internal Medicine; ATTEND Internal Medicine
DX: I26.99 Other pulmonary embolism without acute cor pulmonale (principal); I25.10 Atherosclerotic heart disease of native coronary artery without angina pectoris; Z95.1 Presence of aortocoronary bypass graft; I10 Essential (primary) hypertension; E78.5 Hyperlipidemia, unspecified; E11.649 Type 2 diabetes mellitus with hypoglycemia without coma; Z79.4 Long term (current) use of insulin
CPT/HCPCS: 36415; 71045-TC-FY; 71275-TC; 80048; 80053; 82550; 82553; 82962; 83036; 83880; 84484; 85025; 85027; 85379; 85610; 93005; 93010; 93306-TC; 93970-TC; 99285-25; G0378; J0131

== ENCOUNTER 2020-08-21 17:36 | Inpatient (IN) | payer OTHER ==
--- NOTE | 2020-08-21 17:45 | PDOC ---
Rapid Medical Evaluation Time Seen by Provider: 08/21/20 17:40 Medical Evaluation: Allergies Allergy/AdvReac Type Severity Reaction Status Date / Time No Known Allergies Allergy Verified 11/22/19 12:31 08/21/20 17:40 Pt with PMH of CAD s/p triple bipass, HTN presents for evaluation of chest pain and shortness of breath, for the past two days. She states that her feet are swollen. She state she has left sided chest pain. Exam: Tachycardic, short of breath conversationally Orders: labs, EKG, IV insert Pt to proceed to the ER for further evaluation Discharge Disposition - Diagnosis Chest pain Qualifiers: Chest pain type: unspecified Qualified Code(s): R07.9 - Chest pain, unspecified - Referrals - Patient Instructions - Post Discharge Activity
--- NOTE | 2020-08-21 18:55 | PDOC ---
History of Present Illness - General Chief Complaint: Shortness of Breath Stated Complaint: UNSPECIFIED BODY PAIN Time Seen by Provider: 08/21/20 17:40 Past History - Medical History Allergies/Adverse Reactions: Allergies Allergy/AdvReac Type Severity Reaction Status Date / Time No Known Allergies Allergy Verified 08/21/20 17:42 Home Medications: Ambulatory Orders Aspirin 81 mg PO DAILY 03/10/19 Furosemide [Lasix] 20 mg PO DAILY 03/10/19 Dapagliflozin Propanediol [Farxiga] 5 mg PO DAILY 05/10/19 Apixaban [Eliquis] 5 mg PO BID #42 tablet 11/23/19 Atorvastatin Ca [Lipitor] 20 mg PO HS tablet 11/23/19 Valsartan [Diovan] 320 mg PO DAILY #30 tablet 11/23/19 Amlodipine Besylate 5 mg PO DAILY 02/07/20 Lisinopril 20 mg PO DAILY 02/07/20 Cardiac Disorders: Yes (CAD, CABG 3 VESSELS) COPD: No Diabetes: Yes GI Disorders: Yes (BOWEL OBSTRUCTION) HTN: Yes Hypercholesterolemia: Yes - Surgical History Abdominal Surgery: Yes (OBSTRUCTION) Appendectomy: Yes Cardiac Surgery: Yes (3 V CABG) Cholecystectomy: Yes - Psycho-Social/Smoking History Smoking History: Never smoked Have you smoked in the past 12 months: No If you are a former smoker, when did you quit?: 1998 - Substance Abuse Hx (Audit-C & DAST Scrn) How often the patient has a drink containing alcohol: Never Score: In Men: 4 or > Positive; In Women: 3 or > Positive: 0 Screen Result (Pos requires Nsg. Audit-10AR): Negative In the last yr the pt used illegal drug/Rx for NonMed reason: No Score: Yes response is considered Positive: 0 Screen Result (Positive result requires Nsg. DAST-10): Negative *Physical Exam - Vital Signs Last Vital Signs Temp Pulse Resp BP Pulse Ox 98.4 F 116 H 20 244/110 H 100 08/21/20 17:42 08/21/20 17:42 08/21/20 17:42 08/21/20 17:42 08/21/20 17:42 Heart Score/ECG Review - History History: Moderately suspicious - Electrocardiogram EKG: Non specific repolarization disturbance - Age Age: >/= 65 - Risk Factors Risk Factors Heart Score: Yes Hx Hypercholesterolemia, Yes Hx Hypertension, Yes Hx Diabetes, Yes Hx Obesity Based on the list above the patient has:: >/=3 risk factors or Hx atherosclerotic disease - Troponin Troponin: </= normal limit - Score Heart Score - Total: 6 ED Treatment Course - LABORATORY CBC & Chemistry Diagram: 08/21/20 18:30 08/21/20 18:30 Medical Decision Making - Medical Decision Making 08/21/20 19:24 65yo F hx IDDM (noncompliant), CAD s/p CABG, DVTs on plavix, CHF on lasix 20, HTN (noncompliant with meds x1mo), and HLD presents from home c/o 1wk b/l leg pain and swelling, that spread to R arm then R breast then L breast. Yesterday gradual onset and L-sided CP, pressure type. PCP - Lana but wants to change PE obese b/l slight rales at bases 2+ PE b/l, LLE>RLE Hypertensive CHF vs ACS/MA vs PE HEART score 6 -Lisinopril, Amlodipine -Lasix -EKG -CXR -Duplex LEs -CBC,CMP,Cardiac profile,Coags,BNP -COVID 08/21/20 20:16 -4 units insulin -CTA 08/21/20 23:53 CTA negative for PE Discharge - Discharge Information Problems reviewed: Yes Clinical Impression/Diagnosis: SOB (shortness of breath), Obesity (BMI 30-39.9), HTN (hypertension) Chest pain Qualifiers: Chest pain type: unspecified Qualified Code(s): R07.9 - Chest pain, unspecified Condition: Stable - Admission Yes - Follow up/Referral Referrals: Jose Schwartz MD [Primary Care Provider] - - Patient Discharge Instructions - Post Discharge Activity
[2020-08-21] MEDS ORDERED: LISINOPRIL 20 MG TABLET (FP) PO ONE (18:56)
[2020-08-21] MEDS ORDERED: amLODIPine BESYLATE 5 MG TABLET (FP) PO ONE (18:56)
[2020-08-21] MEDS ORDERED: amLODIPine BESYLATE 5 MG TABLET (FP) ONE (19:10)
[2020-08-21] MEDS ORDERED: LISINOPRIL 20 MG TABLET (FP) ONE (19:11)
[2020-08-21] MEDS ORDERED: FUROSEMIDE 40 MG/4 ML INJECTABLE VIAL ONE (19:36)
[2020-08-21 19:41] LABS: BASO % 0.8 % (0-2.0); EOS % 3.1 % (0-4.5); HEMATOCRIT 39.6 % (32.4-45.2); HEMOGLOBIN 13.6 GM/dL (10.7-15.3); LYMPH % 30.2 % (8-40); MCH 30.3 pg (25.7-33.7); MCHC 34.4 g/dl (32.0-36.0); MEAN CELL VOLUME 87.9 fl (80-96); MEAN PLT VOLUME 8.5 fl (7.5-11.1); MONO % 7.2 % (3.8-10.2); NEUT % 58.7 % (42.8-82.8); PLATELET COUNT 226 K/MM3 (134-434); RDW 14.2 % (11.6-15.6); WHITE BLOOD COUNT 5.9 K/mm3 (4.0-10.0)
[2020-08-21 19:45] LABS: INR 0.92 (0.83-1.09); PROTHROMBIN TIME (PATIENT) 10.8 SEC (9.7-13.0)
[2020-08-21] MEDS ORDERED: FUROSEMIDE 40 MG/4 ML INJECTABLE VIAL IVPUSH ONE (19:53)
[2020-08-21 20:08] LABS: ALBUMIN 3.9 g/dl (3.4-5.0); ALK PHOS 119 U/L (45-117); ANION GAP 7 MMOL/L (8-16); BILIRUBIN,TOTAL 0.7 mg/dL (0.2-1); BLOOD UREA NITROGEN 19.2 mg/dL (7-18); CALCIUM 9.5 mg/dL (8.5-10.1); CHLORIDE 104 mmol/L (98-107); CO2 26 mmol/L (21-32); CREATININE 1.1 mg/dL (0.55-1.3); GLUCOSE,RANDOM 354 mg/dL (74-106); MAGNESIUM 1.9 mg/dL (1.8-2.4); N-TERMINAL BNP 86.6 pg/ml (5-125); POTASSIUM 3.4 mmol/L (3.5-5.1); SGOT/AST 25 U/L (15-37); SGPT/ALT 34 U/L (13-61); SODIUM 138 mmol/L (136-145); TOT PROT 7.1 g/dl (6.4-8.2)
[2020-08-21] MEDS ORDERED: INSULIN REGULAR HUMAN 100 UNITS/ML *VIAL IVPUSH ONE (20:14)
[2020-08-21 22:52] LABS: PH,URINE 6.5 (5.0-8.0); URINE APPEARANCE CLEAR; URINE BILIRUBIN NEGATIVE (NEGATIVE); URINE COLOR YELLOW; URINE GLUCOSE (UA) 3+ (NEGATIVE); URINE KETONE NEGATIVE (NEGATIVE); URINE LEUK ESTERASE NEGATIVE (NEGATIVE); URINE NITRITE NEGATIVE (NEGATIVE); URINE PROTEIN TRACE (NEGATIVE); URINE UROBILINOGEN 0.2 mg/dL (0.2-1.0)
--- NOTE | 2020-08-22 00:04 | PDOC ---
Attending Attestation - Resident Resident Name: Tawanna Bishop - ED Attending Attestation I have performed the following: I have examined & evaluated the patient, The case was reviewed & discussed with the resident, I agree w/resident's findings & plan - HPI HPI: 08/22/20 00:04 see resident hpi - Physicial Exam PE: 08/22/20 00:04 see resident exam - Critical Care Time Total Critical Care Time: 50 Critical Care Statement: The care of this patient involved high complexity decision making to prevent further life threatening deterioration of the patient's condition and/or to evaluate & treat vital organ system(s) failure or risk of failure. - Medical Decision Making 08/22/20 00:04 65-year-old female with chest pain and admitted noncompliance with home blood pressure medication stating she ran out Patient does have history of CABG and sternotomy complications including abscess that was repaired in [place] CTA of the chest performed today due to history of DVT which showed no pulmonary embolism Lower extremity duplex negative for DVT We will admit to telemetry Discharge - Discharge Information Problems reviewed: Yes Clinical Impression/Diagnosis: SOB (shortness of breath), Obesity (BMI 30-39.9), HTN (hypertension) Chest pain Qualifiers: Chest pain type: unspecified Qualified Code(s): R07.9 - Chest pain, unspecified Condition: Stable - Follow up/Referral Referrals: Jose Schwartz MD [Primary Care Provider] - - Patient Discharge Instructions - Post Discharge Activity
--- OUTSIDE RECORDS SUMMARY | 2020-08-22 00:18 | XMS ---
:1955 Author Organization [facility] Care Team Providers Name Role Phone [id number] Unavailable Unavailable Re-disclosure Warning The records that you are about to access may contain information from federally- assisted alcohol or drug abuse programs. If such information is present, then the following federally mandated warning applies: This information has been disclosed to you from records protected by federal confidentiality rules (42 CFR part 2). The federal rules prohibit you from making any further disclosure of this information unless further disclosure is expressly permitted by the written consent of the person to whom it pertains or as otherwise permitted by 42 CFR part 2. A general authorization for the release of medical or other information is NOT sufficient for this purpose. The Federal rules restrict any use of the information to criminally investigate or prosecute any alcohol or drug abuse patient.The records that you are about to access may contain highly sensitive health information, the redisclosure of which is protected by Article 27-F of the [facility] Public Health law. If you continue you may haveaccess to information: Regarding HIV / AIDS; Provided by facilities licensed or operated by the [facility] Office of Mental Health; or Provided by the [facility] Office for People With Developmental Disabilities. If such information is present, then the following [facility] mandated warning applies: This information has been disclosed to you from confidential records which are protected by state law. State law prohibits you from making any further disclosure of this information without the specific written consent of the person to whom it pertains, or as otherwise permitted by law. Any unauthorized further disclosure in violation of state law may result in a fine or mcfp sentence or both. A general authorization for the release of medical or other information is NOT sufficient authorization for further disclosure. Encounters Encounter Providers Location Date Indications Data Source(s ) Outpatient Attender: [id number] 01/18/2020 [facility] 01:11:14 PM Care Rea schuster) EST Patient admitted. Insurance Providers Payer name Policy type Policy ID Covered Covered republican's Policy P moshe / Coverage republican ID relationship to [employer] type [employer] MEDICARE [id number] SP [id number] VIP 1 TONG MEDICARE [id number] SP [id number] MEDICAID [id number] SP [id number] [facility] MEDICARE [id number] SP [id number] MEDICAID [id number] SP [id number] [facility] MEDICARE [id number] SP [id number] VIP 1 MEDICARE [id number] SP [id number] A MEDICARE [id number] SP [id number] A MEDICAID [id number] SP [id number] MEDICAID OF [id number] [facility] MEDICARE [id number] PART B [facility] [id number] VIP (HMO) 1
--- NOTE | 2020-08-22 00:40 | HP ---
CHIEF COMPLAINT:chest pain and shortness of breath which started this morning PCP:Dr. Jose Schwartz HISTORY OF PRESENT ILLNESS: 64 year old female with a past medical history of insulin-dependent diabetes, CAD, status post CABG in 2004 at [facility], then with 2 subsequent reoperations (does not follow up with Cardiology),cardiac cath about 5 months ago at [facility] with stent placement, on plavix, hyperlipidemia, hypertension and left DVT/ PE (diagnosed 10/2019, noncompliant to Eliquis and medications) who presented with complaints of chest pain and shortness of breath which started this morning . She reports chest pain initially started on the right side but then radiated to the left side described "pressure-like". She reports being compliant to her medications(medication bottles reviewed and taking -asa, plavix and lasix only). She reports eating foods low in salt. Upon presentation to the ER blood pressure was 240/140. She received home dose of amlodipine and lisinopril. On review of patient medication bottles patient was not taking any antihypertensives medications or Eliquis. She is requesting Hospitalist to see her. She is verbalizing to me she does not want to see her PCP-Dr. Jose Schwartz no longer. ER course notable for normal troponin X1. CXR was unremarkable. CTA excluded PE. Venous doppler of lower extremities completed and pending results. Despite BNP was 86 , on clinical exam she has bilateral lower extremity swelling . She received one dosage of IV lasix 40 mg. Recent Travel: no PAST MEDICAL HISTORY: IDDM CAD with prior CABG(3 operations) and stent placement 3 months ago at [facility] Hypertension Hyperlipidemia Left DVT/PE 10/2019 PAST SURGICAL HISTORY: CABG in 2004(followed by 2 repoerations) Social History: Smoking:no Alcohol:no Drugs:no Allergies No Known Allergies Allergy (Verified 08/21/20 17:42) HOME MEDICATIONS: Home Medications Medication Instructions Recorded Aspirin 81 mg PO DAILY 03/10/19 Furosemide [Lasix] 20 mg PO DAILY 03/10/19 Dapagliflozin Propanediol [Farxiga] 5 mg PO DAILY 05/10/19 Apixaban [Eliquis] 5 mg PO BID #42 tablet 11/23/19 Atorvastatin Ca [Lipitor] 20 mg PO HS tablet 11/23/19 Valsartan [Diovan] 320 mg PO DAILY #30 tablet 11/23/19 Amlodipine Besylate 5 mg PO DAILY 02/07/20 Lisinopril 20 mg PO DAILY 02/07/20 REVIEW OF SYSTEMS CONSTITUTIONAL: Absent: fever, chills, diaphoresis, generalized weakness, malaise, loss of appetite, weight change HEENT: Absent: rhinorrhea, nasal congestion, throat pain, throat swelling, difficulty swallowing, mouth swelling, ear pain, eye pain, visual changes CARDIOVASCULAR: Absent: chest pain, syncope, palpitations, irregular heart rate, lightheadedness, peripheral edema RESPIRATORY: Absent: cough, shortness of breath, dyspnea with exertion, orthopnea, wheezing, stridor, hemoptysis GASTROINTESTINAL: Absent: abdominal pain, abdominal distension, nausea, vomiting, diarrhea, constipation, melena, hematochezia GENITOURINARY: Absent: dysuria, frequency, urgency, hesitancy, hematuria, flank pain, genital pain MUSCULOSKELETAL: Absent: myalgia, arthralgia, joint swelling, back pain, neck pain SKIN: Absent: rash, itching, pallor HEMATOLOGIC/IMMUNOLOGIC: Absent: easy bleeding, easy bruising, lymphadenopathy, frequent infections ENDOCRINE: Absent: unexplained weight gain, unexplained weight loss, heat intolerance, cold intolerance NEUROLOGIC: Absent: headache, focal weakness or paresthesias, dizziness, unsteady gait, seizure, mental status changes, bladder or bowel incontinence PSYCHIATRIC: Absent: anxiety, depression, suicidal or homicidal ideation, hallucinations. PHYSICAL EXAMINATION Vital Signs - 24 hr 08/21/20 08/21/20 08/21/20 17:42 19:18 21:45 Temperature 98.4 F Pulse Rate 116 H Pulse Rate [ 107 H 92 H Left Radial] Respiratory 20 18 18 Rate Blood Pressure 244/110 H Blood Pressure 205/107 H 164/84 [Left Arm] Blood Pressure [Right Arm] O2 Sat by Pulse 100 100 98 Oximetry (%) 08/22/20 00:05 Temperature Pulse Rate Pulse Rate [ 92 H Left Radial] Respiratory 18 Rate Blood Pressure Blood Pressure [Left Arm] Blood Pressure 164/87 [Right Arm] O2 Sat by Pulse 100 Oximetry (%) General no acute distress Vital signs reviewed afebrile Neuro no focal deficits Neck no JVD Lungs CTA nonlabored breathing effort no rales no wheezing Heart s1s2 rate regular no murmurs Abdomen soft nontender nondistended Extremities warm to touch 1+ edema present bilaterally no caynosis Skin nail beds and lips pink Laboratory Results - last 24 hr 08/21/20 08/21/20 08/21/20 18:30 18:30 18:30 WBC 5.9 RBC 4.50 Hgb 13.6 Hct 39.6 D MCV 87.9 MCH 30.3 MCHC 34.4 RDW 14.2 Plt Count 226 MPV 8.5 Absolute Neuts (auto) 3.5 Neutrophils % 58.7 Lymphocytes % 30.2 Monocytes % 7.2 Eosinophils % 3.1 Basophils % 0.8 Nucleated RBC % 0 PT with INR 10.80 INR 0.92 Sodium 138 Potassium 3.4 L Chloride 104 Carbon Dioxide 26 Anion Gap 7 L BUN 19.2 H Creatinine 1.1 Est GFR (CKD-EPI)AfAm 60.16 Est GFR (CKD-EPI)NonAf 51.91 Random Glucose 354 H Calcium 9.5 Magnesium 1.9 Total Bilirubin 0.7 AST 25 ALT 34 Alkaline Phosphatase 119 H Creatine Kinase 228 H Creatine Kinase Index 1.7 CK-MB (CK-2) 4.1 H Troponin I < 0.02 B-Natriuretic Peptide 86.6 Total Protein 7.1 Albumin 3.9 Urine Color Urine Appearance Urine pH Ur Specific [place] Urine Protein Urine Glucose (UA) Urine Ketones Urine Blood Urine Nitrite Urine Bilirubin Urine Urobilinogen Ur Leukocyte Esterase 08/21/20 20:40 WBC RBC Hgb Hct MCV MCH MCHC RDW Plt Count MPV Absolute Neuts (auto) Neutrophils % Lymphocytes % Monocytes % Eosinophils % Basophils % Nucleated RBC % PT with INR INR Sodium Potassium Chloride Carbon Dioxide Anion Gap BUN Creatinine Est GFR (CKD-EPI)AfAm Est GFR (CKD-EPI)NonAf Random Glucose Calcium Magnesium Total Bilirubin AST ALT Alkaline Phosphatase Creatine Kinase Creatine Kinase Index CK-MB (CK-2) Troponin I B-Natriuretic Peptide Total Protein Albumin Urine Color Yellow Urine Appearance Clear Urine pH 6.5 Ur Specific [place] 1.023 Urine Protein Trace Urine Glucose (UA) 3+ H Urine Ketones Negative Urine Blood Negative Urine Nitrite Negative Urine Bilirubin Negative Urine Urobilinogen 0.2 Ur Leukocyte Esterase Negative ASSESSMENT/PLAN: 64 year old female with past medical history of insulin-dependent diabetes, CAD, status post CABG in 2003 at [facility] and then 2 reoperations (do es not follow up with Cardiology),cardiac cath about 5 months ago with stent placement at [facility] , hyperlipidemia and hypertension who presented with complaint of chest pain and shortness of breath. ER course notable for normal troponin X1 and unremarkable CXR. CTA excluded PE. 1. Chest Pain/ Dyspnea R/O ACS presented with hypertensive urgency( was not taking antihypertensive) she is asymptomatic at this time, has lower extremity swelling on clinical exam troponin X1 negative, EKG with T wave inversions in lead I, II, aVL, V5 and V6, BNP 86, CTA was negative for PE --continue to trend troponins --continue with asa, plavix and statin --resume valsartan,HCTZ and amlodipine --received IV lasix 40 mg once , monitor IV diuresis , creatinine , strict I&O's and electrolytes --potassium repleted for mild hypokalemia --Cardiology - Dr. Singh consulted 2. Hx CAD w/ prior CABG( 2 reoperations) and hx of stent (03/2020) --continue with asa and plavix --c/w statin therapy --resume valsartan,HCTZ and amlodipine --c/w oral lasix 3. Hyperlipidemia LFT's normal --c/w statin therapy 4. Hypertension uncontrolled(appears to be noncompliant to medications) --resume amlodipine 5mg daily, valsartan 160mg daily and HCTZ 12.5 mg and titrate meds as needed --continue with oral lasix 5. IDDM(uncontrolled) urine w/ 3+ glucose --bgm before meals and at bedtime --insulin as per sliding scale --check [id number] 6. Rule Out COVID --follow up on COVID test results --maintain o2 sat >90% --maintain strict isolation and droplet precautions 7. Hx Left DVT and PE not taking eliquis at home venous doppler completed and pending results c/w lovenox therapy DVT dosage and SCD's DVT --lovenox 40 mg daily FEN --no IVF indicated --BMP daily and replete electrolytes as needed --low sodium/low fat /ADA diet Family Medical History Family History: Unable to Obtain Visit type - Medication Review Med list reviewed for High Risk Meds patients 65 and older: Yes - Emergency Visit Emergency Visit: No - New Patient This patient is new to me today: Yes Date on this admission: 08/22/20 - Critical Care Critical Care patient: No
[2020-08-22 01:01] LABS: BLOOD UREA NITROGEN 21.2 mg/dL (7-18); CREATININE 0.2 mg/dL (0.55-1.3); MAGNESIUM 1.8 mg/dL (1.8-2.4)
[2020-08-22] MEDS ORDERED: POTASSIUM CHLORIDE ORAL LIQUID 20 MEQ/15 ML PO ONE (01:30)
[2020-08-22 01:55] LABS: CALCIUM 6.5 mg/dL (8.5-10.1)
[2020-08-22 02:51] VITALS: BMI 35.8
[2020-08-22] MEDS ORDERED: CALCIUM CHLORIDE 10% 1 GM/10 ML *VIAL IVPB ONE (03:00)
[2020-08-22] MEDS: INSULIN SLIDING SCALE (NOVOLOG) 1 VIAL SQ SCH ×4 (06:19→22:32)
--- NOTE | 2020-08-22 09:43 | EKG ---
Test Reason : Blood Pressure : / mmHG Vent. Rate : 110 BPM Atrial Rate : 110 BPM P-R Int : 152 ms QRS Dur : 078 ms QT Int : 366 ms P-R-T Axes : 071 040 185 degrees QTc Int : 495 ms SINUS TACHYCARDIA POSSIBLE LEFT ATRIAL ENLARGEMENT LEFT VENTRICULAR HYPERTROPHY WITH REPOLARIZATION ABNORMALITY ABNORMAL ECG WHEN COMPARED WITH ECG OF 07-FEB-2020 10:48, VENT. RATE HAS INCREASED BY [address] NOW DEPRESSED IN INFERIOR LEADS ST NOW DEPRESSED IN LATERAL LEADS T WAVE INVERSION NOW EVIDENT IN INFERIOR LEADS Confirmed by Shane Delgado ([id number]) on 08/22/2020 9:42:39 AM Referred By: Confirmed By:Shane Delgado
[2020-08-22] MEDS: FUROSEMIDE 20 MG TABLET (FP) PO SCH (09:45)
[2020-08-22] MEDS ORDERED: LISINOPRIL 20 MG TABLET (FP) PO SCH (10:00)
[2020-08-22] MEDS ORDERED: amLODIPine BESYLATE 5 MG TABLET (FP) PO SCH (10:00)
[2020-08-22] MEDS ORDERED: CLOPIDOGREL BISULFATE 75 MG TABLET (FP) PO SCH (10:00)
[2020-08-22] MEDS ORDERED: HYDROCHLOROTHIAZIDE 12.5 MG CAPSULE (FP) PO SCH (10:00)
[2020-08-22] MEDS ORDERED: VALSARTAN 160 MG TABLET (UD) PO SCH ×2 (10:00)
[2020-08-22] MEDS ORDERED: ENOXAPARIN NA (PORCINE) 40 MG/0.4 ML DISP.SYRIN SQ SCH (10:00)
[2020-08-22] MEDS ORDERED: ASPIRIN 81 MG CHEWABLE TABLETS PO SCH (10:00)
[2020-08-22] MEDS ORDERED: CALCIUM GLUCONATE 10% - 1,000 MG/10 ML VIAL IVPUSH ONE (10:54)
[2020-08-22 12:12] LABS: HEMATOCRIT 42.2 % (32.4-45.2); HEMOGLOBIN 14.1 GM/dL (10.7-15.3); MCH 29.3 pg (25.7-33.7); MCHC 33.4 g/dl (32.0-36.0); MEAN CELL VOLUME 87.5 fl (80-96); MEAN PLT VOLUME 8.2 fl (7.5-11.1); PLATELET COUNT 244 K/MM3 (134-434); RBC 4.82 M/mm3 (3.60-5.2); RDW 14.2 % (11.6-15.6); WHITE BLOOD COUNT 5.6 K/mm3 (4.0-10.0)
[2020-08-22 12:27] LABS: BLOOD UREA NITROGEN 15.2 mg/dL (7-18); CREATININE 0.9 mg/dL (0.55-1.3); POTASSIUM 3.5 mmol/L (3.5-5.1)
--- NOTE | 2020-08-22 13:26 | CON.CARD ---
Consult Consult Specialty:: cardiology Reason for Consultation:: uncontroolled HTN; hx CABG - History of Present Illness Chief Complaint: Pt A&Ox3; presently denies chest pain, dyspnea, or headache. History of Present Illness: Ms. Zavala is a 65-year-old black woman with PMHx HTN, CABG (stress MIBI 01/2020: Poor exercise capacity, with development of chest pain and mild ischemia in two territories--basal inferior and lateral-- on nuclear images), DM, ?thyroid disease, HDL, moderate cervical spine disease on 2016 CT neck; possible significant carotid artery stenosis--50-70% proximal JUANA on 2016 ultrasound; obesity, chest pain and admitted noncompliance with home blood pressure medication stating she ran out Patient does have history of CABG and sternotomy complications including sternal abscess that was repaired in [place] CTA of the chest performed today due to history of DVT which showed no pulmonary embolism Lower extremity duplex negative for DVT PMD: Dr. Jose Schwartz [place]: Dr. Seema Pineda - History Source History Provided By: Patient, Medical Record Limitations to Obtaining History: Poor Historian - Past Medical History Cardio/Vascular: Yes: CAD, CHF (diastolic), HTN, Hyperlipdemia, [place] Gastrointestinal: Yes: Other (SBO s/p surgical resection 2003 [facility] ("they went in twice"); abd incisional hernias) Reproductive: Yes: Postmenopausal ...: No Infectious Disease: Yes: Other (sternal wound infection 2003) Endocrine: Yes: Diabetes Mellitus - Past Surgical History Past Surgical History: Yes: CABG (triple bypass 2003), Cholecystectomy (lapa roscopic), Hysterectomy - Alcohol/Substance Use Hx Alcohol Use: No History of Substance Use: reports: None - Smoking History Smoking history: Never smoked Have you smoked in the past 12 months: No If you are a former smoker, when did you quit?: 1998 - Social History Usual Living Arrangement: Alone ADL: Independent Occupation: retired jade History of Recent Travel: No Home Medications - Allergies Allergies/Adverse Reactions: Allergies Allergy/AdvReac Type Severity Reaction Status Date / Time No Known Allergies Allergy Verified 08/21/20 17:42 - Home Medications Home Medications: Ambulatory Orders Aspirin 81 mg PO DAILY 03/10/19 Furosemide [Lasix] 20 mg PO DAILY 03/10/19 Dapagliflozin Propanediol [Farxiga] 5 mg PO DAILY 05/10/19 Amlodipine Besylate 10 mg PO DAILY 02/07/20 Atorvastatin Ca [Lipitor] 40 mg PO HS 08/22/20 Clopidogrel Bisulfate [Plavix] 75 mg PO DAILY 08/22/20 Metformin HCl [Glucophage] 1,000 mg PO BID 08/22/20 Olmesartan/Hydrochlorothiazide [Olmesartan-Hctz 20-12.5 mg Tab] 1 each PO DAILY 08/22/20 Atorvastatin Ca [Lipitor] 20 mg PO HS tablet 08/23/20 Enoxaparin [Lovenox -] 95 mg SQ BID disp.syrin 08/23/20 Hydrochlorothiazide [Hctz -] 25 mg PO DAILY tablet 08/23/20 Insulin Sliding Scale [Novolog Vial Sliding Scale -] 1 vial SQ ACHS units 08/23/20 Labetalol HCl Injection [Normodyne Injection -] 10 mg IVPUSH Q4H PRN vial 08/23/20 Metoprolol Succinate [Toprol XL -] 50 mg PO DAILY tab.sr.24h 08/23/20 Valsartan [Diovan] 320 mg PO DAILY tablet 08/23/20 Family Medical History Family History: Denies Review of Systems - Review of Systems Constitutional: reports: No Symptoms Eyes: reports: No Symptoms HENT: reports: No Symptoms Neck: reports: No Symptoms Cardiovascular: reports: Chest Pain Respiratory: reports: Exercise Intolerance, SOB on Exertion Gastrointestinal: reports: No Symptoms Genitourinary: reports: No Symptoms Breasts: reports: No Symptoms Reported Musculoskeletal: reports: Muscle Weakness Integumentary: reports: No Symptoms Neurological: reports: No Symptoms Endocrine: reports: No Symptoms Hematology/Lymphatic: reports: No Symptoms Psychiatric: reports: Other - Risk Factors Known Risk Factors: Yes: Age, Diabetes Mellitus, Gender, Hypercholesterolemia, Hypertension, Physical Inactivity, Race, Other (s/p CABG) Vital Signs: Vital Signs Temperature 97.6 F 08/22/20 09:55 Pulse Rate 87 08/22/20 09:55 Respiratory Rate 08/22/20 09:55 Blood Pressure 166/104 H 08/22/20 09:55 O2 Sat by Pulse Oximetry (%) 98 08/22/20 09:55 Constitutional: Yes: Calm, Obese Eyes: Yes: WNL HENT: Yes: WNL Neck: Yes: WNL Respiratory: Yes: WNL Gastrointestinal: Yes: Soft Renal/: No: Anuria JVD: No Carotid Bruit: No PMI: Displaced Heart Sounds: Yes: S1, Split S2 Murmur: Yes: Systolic Murmur, Grade 2 Musculoskeletal: Yes: Muscle Weakness Extremities: Yes: Cool Edema: LLE: 1+, RLE: 1+ Peripheral Pulses WNL: Yes Integumentary: Yes: Incision (surgical vertical sternal scar (CABG); abbominal surgical scars.) Psychiatric: Yes: Alert, Oriented - Other Data Labs, Other Data: CBC, BMP 08/22/20 11:54 08/22/20 11:54 INR, PTT INR 0.92 (0.83-1.09) 08/21/20 18:30 Troponin, BNP 08/21/20 08/22/20 08/22/20 18:30 00:00 11:54 Troponin I < 0.02 0.02 0.03 B-Natriuretic Peptide 86.6 Troponin, BNP 08/21/20 08/22/20 08/22/20 18:30 00:00 11:54 Troponin I < 0.02 0.02 0.03 B-Natriuretic Peptide 86.6 Abnormal Lab Results 08/21/20 08/21/20 08/22/20 18:30 20:40 00:00 Potassium 3.4 L Chloride 109 H Anion Gap 7 L 6 L BUN 19.2 H 21.2 H Creatinine 0.2 L Random Glucose 354 H 117 H Hemoglobin A1c % Calcium 6.5 L* Alkaline Phosphatase 119 H Creatine Kinase 228 H CK-MB (CK-2) 4.1 H Urine Glucose (UA) 3+ H 08/22/20 08/22/20 11:54 11:54 Potassium Chloride Anion Gap 5 L BUN Creatinine Random Glucose 182 H Hemoglobin A1c % 9.6 H Calcium Alkaline Phosphatase Creatine Kinase CK-MB (CK-2) Urine Glucose (UA) Echo: Report Reviewed Prior Cardiac Procedures: CABG, Cardiac Catheterization Ejection Fraction %: LVEF > or = 40 % Imaging - Results Chest X-ray: Image Reviewed EKG: Image Reviewed Assessment/Plan Uncontrolled HTN Noncompliance to medications/doctors' visits s/p CABG 2004 stress MIBI 01/2020: poor exercise capacity; chest pain during exam; ischemic EKG changes; mild ischemia inferobasal and lateral nuclear images. Hx PE 10/2019-->apixaban s/p intestinal surgeries/bowel obstruction obesity r/o sleep apnea DM HDL Rec: COVID pending. On amlodipine, ARB/HCTZ (olmsartan/HCTZ at home), metroprolol ER. F/u BP and HR serially. Increase HCTZ; f/u BUN/Cr, electrolytes (will give dose of KCL, and Keep K 4.0- 4.5). Add spironolactone if BP is refractory to the above, with labetolol IVP prn. ASA 81 mg/d Atorvastatin; f/u lipid level TSH Daily weight, Is and Os. Obtain prior cardiac records. Addendum: Per Dr. Pineda: Last coronary angiogram appears to have been in 03/2017: patent grafts. 09/18 ECHO: normal LVEF and RVEF; abnormal diastolic compliance; mild LVH, mild MR. 09/18 carotid artery US: mild plaque; no significant stenoses; multiple bi lateral thyroid cysts (thyroid US recommended). Plan: Start IV heparin protocol (apixaban not restarted yet, in case pt may have coronary angiogram this admission); stop Lovenox. Hematology input as to whether apixaban should be restarted for 11/18 PE (workup for thrombophilia, age-related cancer screening was to have been done as outpatient at that time).
--- NOTE | 2020-08-22 14:23 | PN ---
Progress Note (short form) - Note Progress Note: S: Pt with significant cardiac history who presented originally due to R chest pressure which started to move to her L while worsening. Patient noted some WATTS during the episode, but no diaphoresis or jaw claudication. Patient was noted to have admission in January 2020 due to chest discomfort and underwent myocardial perfusion test at that time. It resulted with poor exercise capacity and mild ischemia in basal inferior and later territories. In addition, patient has had a prior CABG with possible sternum abscess performed in [place]. She reports during her previous MD requiring CABG her chest discomfort was of different character and markedly intense. Pt admits to poor follow-up in the past six months because she has wanted to switch her PMD. Currently her CP has resolved and she has no complaints today. Anxious about her diagnosis. Vital Signs Temperature 98 F 08/22/20 14:00 Pulse Rate 92 H 08/22/20 14:00 Respiratory Rate 20 08/22/20 14:00 Blood Pressure 198/84 H 08/22/20 14:00 O2 Sat by Pulse Oximetry (%) 98 08/22/20 09:55 PE: Gen: NAD, awake, alert HEENT: NC/At, EOMI, INEZ, MMM Neck: No JVD LUNG: CTA b/l without wheezes or rales CHEST: Midline healed sternotomy scar noted, no reproducible chest pain at this point CARD: RRR no murmurs appreciated ABD: Soft, NT/ND, no hepatojugular reflux, no hepatomegaly EXT: 2+ edema in b/l LE nonpitting, no calf tenderness CBC, BMP 08/22/20 11:54 08/22/20 11:54 Active Medications Amlodipine Besylate (Norvasc -) 10 mg PO DAILY [facility] Aspirin (Asa -) 81 mg PO DAILY [facility] Last Admin: 08/22/20 09:45 Dose: 81 mg Documented by: Atorvastatin Calcium (Lipitor -) 20 mg PO HS [facility] Clopidogrel Bisulfate (Plavix -) 75 mg PO DAILY [facility] Last Admin: 08/22/20 09:45 Dose: 75 mg Documented by: Enoxaparin Sodium (Lovenox -) 40 mg SQ DAILY [facility] Last Admin: 08/22/20 09:46 Dose: 40 mg Documented by: Furosemide (Lasix -) 20 mg PO DAILY [facility] Last Admin: 08/22/20 09:45 Dose: 20 mg Documented by: Hydrochlorothiazide (Hctz -) 25 mg PO ONCE ONE Stop: 08/22/20 14:21 Hydrochlorothiazide (Hctz -) 25 mg PO DAILY [facility] Insulin Aspart (Novolog Vial Sliding Scale -) 1 vial SQ ACHS [facility]; Protocol Last Admin: 08/22/20 11:55 Dose: Not Given Documented by: Metoprolol Succinate (Toprol Xl -) 25 mg PO DAILY [facility] Valsartan (Diovan -) 160 mg PO DAILY [facility] Last Admin: 08/22/20 09:46 Dose: 160 mg Documented by: Assessment/Plan: Chest Pain Syndrome Uncontrolled HTN History of CAD with CABG and stenting History of HLD History of DM, uncontrolled History of PE and DVT --Medications reconciled; need more info regarding farxiga, however rest updated --Restarted Toprol XL 25mg daily --Increased to home dosing of Norvasc 10mg --HCTZ increased to 25mg qdaily --Will hold off before change to olmesartan as it is nonformulary and patient having multiple adjustments at this time --Eliquis given after 10/2019 diagnosis of unprovoked PE; unsure whether patient made her outpatient appointments and will discuss with hem/onc; hold for now as patient not taking at home currently --Continue rest of home medications --Discussed with cardiology; due to history and ongoing uncontrolled BP with suspicious symptoms will monitor overnight. Will gather more information regarding January visit and transfer at that time. --Previous 2015 carotid duplex noted to have 50-70% stenosis; will repeat doppler for interval development of worsening stenosis prior to any additional contrast to be given for vasculature visualiation on CT scan --Duplex studies negative on this admission --CTA reviewed this admission: no PE DVT PPX - Lovenox SQ dvt ppx dose Dispo: continue tele monitoring Eleazar Mae, DO - IM
[2020-08-22] MEDS ORDERED: HYDROCHLOROTHIAZIDE 25 MG TABLET (FP) PO ONE (15:15)
[2020-08-22] MEDS ORDERED: POTASSIUM CHLORIDE TABS 20 MEQ TABLET.ER (FP) PO ONE (15:15)
[2020-08-22] MEDS ORDERED: VALSARTAN 160 MG TABLET (UD) PO ONE (19:19)
[2020-08-22 19:51] LABS: MAGNESIUM 2.1 mg/dL (1.8-2.4)
[2020-08-22] MEDS ORDERED: ATORVASTATIN CA 20 MG TABLET (FP) PO SCH (22:00)
[2020-08-22] MEDS ORDERED: HEPARIN NA (PORCINE) 5,000 UNITS/ML 1ML VIAL IVPUSH PRN ×2 (22:40)
[2020-08-22] MEDS ORDERED: APIXABAN 5 MG TABLET PO SCH (22:45)
[2020-08-22] MEDS ORDERED: HEPARIN INFUSION - 25,000 UNITS/500 ML INFUS.BAG IVPB SCH (22:45)
[2020-08-22] MEDS ORDERED: SPIRONOLACTONE 25 MG TABLET PO ONE (23:08)
[2020-08-22] MEDS ORDERED: amLODIPine BESYLATE 5 MG TABLET (FP) PO ONE (23:08)
[2020-08-22] MEDS ORDERED: LABETALOL HCL 5 MG/1 ML (100MG/20 ML VIAL) IVPUSH PRN (23:20)
[2020-08-23] MEDS: ENOXAPARIN NA (PORCINE) 100 MG/1 ML DISP.SYRIN SQ SCH ×2 (03:01→10:41)
[2020-08-23] MEDS ORDERED: INSULIN (NOVOLOG) ASPART 100 UNITS/ML 10ML VIAL ONE (08:31)
[2020-08-23] MEDS: INSULIN SLIDING SCALE (NOVOLOG) 1 VIAL SQ SCH ×2 (08:43→12:59)
--- NOTE | 2020-08-23 09:21 | PN ---
Progress Note, Physician History of Present Illness: Ms. 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 Jose Schwartz Contracting Executive: Dr. Seema Pineda - Current Medication List Current Medications: Active Medications Amlodipine Besylate (Norvasc -) 10 mg PO DAILY [facility] Atorvastatin Calcium (Lipitor -) 20 mg PO HS [facility] Last Admin: 08/22/20 22:32 Dose: 20 mg Documented by: Enoxaparin Sodium (Lovenox -) 95 mg SQ BID [facility] Last Admin: 08/23/20 03:01 Dose: 95 mg Documented by: Furosemide (Lasix -) 20 mg PO DAILY [facility] Last Admin: 08/22/20 09:45 Dose: 20 mg Documented by: Hydrochlorothiazide (Hctz -) 25 mg PO DAILY [facility] Insulin Aspart (Novolog Vial Sliding Scale -) 1 vial SQ ACHS [facility]; Protocol Last Admin: 08/23/20 08:43 Dose: 4 units Documented by: Labetalol HCl (Normodyne Injection -) 10 mg IVPUSH Q4H PRN PRN Reason: SBP> 160 OR DIASTOLIC > 100 Last Admin: 08/23/20 04:06 Dose: 10 mg Documented by: Metoprolol Succinate (Toprol Xl -) 50 mg PO DAILY [facility] Last Admin: 08/22/20 19:36 Dose: 50 mg Documented by: Spironolactone (Aldactone -) 25 mg PO DAILY [facility] Valsartan (Diovan -) 320 mg PO DAILY [facility] - Objective Vital Signs: Vital Signs Temperature 98 F 08/23/20 01:34 Pulse Rate 69 08/23/20 01:34 Respiratory Rate 18 08/23/20 07:00 Blood Pressure 167/85 08/23/20 07:00 O2 Sat by Pulse Oximetry (%) 99 08/23/20 07:00 Eyes: Yes: WNL, Conjunctiva Clear, EOM Intact HENT: Yes: WNL, Atraumatic, Normocephalic Neck: Yes: WNL, Supple, Trachea Midline Cardiovascular: Yes: WNL, Regular Rate and Rhythm Respiratory: Yes: WNL, Regular, CTA Bilaterally Gastrointestinal: Yes: WNL, Normal Bowel Sounds Genitourinary: Yes: WNL Musculoskeletal: Yes: WNL Extremities: Yes: WNL Edema: No Integumentary: Yes: WNL Neurological: Yes: WNL, Alert, Oriented ...Motor Strength: WNL Psychiatric: Yes: WNL Labs: CBC, BMP 08/22/20 11:54 08/22/20 11:54 INR, PTT INR 0.92 (0.83-1.09) 08/21/20 18:30 Assessment/Plan Uncontrolled HTN Noncompliance to medications/doctors' visits s/p CABG 2003 stress MIBI 01/2020: poor exercise capacity; chest pain during exam; ischemic EKG changes; mild ischemia inferobasal and lateral nuclear images. Hx PE 10/2019-->apixaban s/p intestinal surgeries/bowel obstruction obesity r/o sleep apnea DM HDL Rec: COVID pending. On amlodipine, ARB/HCTZ (olmsartan/HCTZ at home), metroprolol ER. F/u BP and HR serially. Increase HCTZ; f/u BUN/Cr, electrolytes (will give dose of KCL, and Keep K 4.0- 4.5). Add spironolactone if BP is refractory to the above, with labetolol IVP prn. ASA 81 mg/d Atorvastatin; f/u lipid level TSH Daily weight, Is and Os. Obtain prior cardiac records. Addendum: Per Dr. Pineda: Last coronary angiogram appears to have been in 03/2017: patent grafts. 09/18 ECHO: normal LVEF and RVEF; abnormal diastolic compliance; mild LVH, mild MR. 09/18 carotid artery US: mild plaque; no significant stenoses; multiple bilateral thyroid cysts (thyroid US recommended). Plan: Start IV heparin protocol (apixaban not restarted yet, in case pt may have coronary angiogram this admission); stop Lovenox. Hematology input as to whether apixaban should be restarted for 11/18 PE (workup for thrombophilia, age-related cancer screening was to have been done as outpatient at that time).
[2020-08-23] MEDS ORDERED: SPIRONOLACTONE 25 MG TABLET PO SCH (10:00)
[2020-08-23] MEDS ORDERED: HYDROCHLOROTHIAZIDE 25 MG TABLET (FP) PO SCH (10:00)
[2020-08-23] MEDS ORDERED: amLODIPine BESYLATE 10 MG TABLET (FP) PO SCH (10:00)
[2020-08-23] MEDS ORDERED: VALSARTAN 160 MG TABLET (UD) PO SCH (10:00)
[2020-08-23] MEDS ORDERED: metoPROLOL SUCCINATE 25 MG TAB.SR.24H (FP) PO SCH (10:00)
--- NOTE | 2020-08-23 10:04 | EKG ---
Test Reason : Blood Pressure : / mmHG Vent. Rate : 104 BPM Atrial Rate : 104 BPM P-R Int : 152 ms QRS Dur : 082 ms QT Int : 386 ms P-R-T Axes : 055 018 146 degrees QTc Int : 507 ms SINUS TACHYCARDIA POSSIBLE LEFT ATRIAL ENLARGEMENT LEFT VENTRICULAR HYPERTROPHY WITH REPOLARIZATION ABNORMALITY ABNORMAL ECG WHEN COMPARED WITH ECG OF 21-AUG-2020 17:58, T WAVE INVERSION NO LONGER EVIDENT IN INFERIOR LEADS Confirmed by Shane Delgado ([id number]) on 08/23/2020 10:03:52 AM Referred By: Confirmed By:Shane Delgado
[2020-08-23] MEDS: FUROSEMIDE 20 MG TABLET (FP) PO SCH (10:41)
--- NOTE | 2020-08-23 14:00 | DS ---
Physical Exam: SUBJECTIVE: Overnight events noted. Patient remains hypertensive this AM and given increased dosing of medications early. Patient has no complaints at this time and wishes to acquire another long-term PMD. No SOB. No CP or palpitations. No telemetry events. OBJECTIVE: Vital Signs Period Temp Pulse Resp BP Sys/Hawk Pulse Ox Last 24 Hr 97.8 F-98.2 F 69-92 18-20 158-200/69-113 96-99 PHYSICAL EXAM PE: Gen: NAD, awake, alert HEENT: NC/At, EOMI, INEZ, MMM Neck: No JVD LUNG: CTA b/l without wheezes or rales CHEST: Midline healed sternotomy scar noted, no reproducible chest pain at this point CARD: RRR no murmurs appreciated ABD: Soft, NT/ND, no hepatojugular reflux, no hepatomegaly EXT: 2+ edema in b/l LE nonpitting, no calf tenderness LABS Laboratory Results - last 24 hr 08/21/20 08/22/20 08/22/20 20:40 11:54 16:54 PTT (Actin FS) Sodium 139 Potassium 3.5 Chloride 103 Carbon Dioxide 31 Anion Gap 5 L BUN 15.2 Creatinine 0.9 Est GFR (CKD-EPI)AfAm 76.68 Est GFR (CKD-EPI)NonAf 66.16 POC Glucometer 293 Random Glucose 182 H Calcium 10.0 Magnesium 2.1 Triglycerides 189 H Cholesterol 327 H Total LDL Cholesterol 235 H HDL Cholesterol 47 TSH 3.44 COVID-19 (R[facility]KEY) Not detected 08/22/20 08/23/20 08/23/20 22:29 06:23 08:01 PTT (Actin FS) 45.1 H Sodium Potassium Chloride Carbon Dioxide Anion Gap BUN Creatinine Est GFR (CKD-EPI)AfAm Est GFR (CKD-EPI)NonAf POC Glucometer 361 291 Random Glucose Calcium Magnesium Triglycerides Cholesterol Total LDL Cholesterol HDL Cholesterol TSH COVID-19 ([facility]KEY) 08/23/20 11:11 PTT (Actin FS) Sodium Potassium Chloride Carbon Dioxide Anion Gap BUN Creatinine Est GFR (CKD-EPI)AfAm Est GFR (CKD-EPI)NonAf POC Glucometer 370 Random Glucose Calcium Magnesium Triglycerides Cholesterol Total LDL Cholesterol HDL Cholesterol TSH COVID-19 ([facility]KEY) Active Medications Amlodipine Besylate (Norvasc -) 10 mg PO DAILY [facility] Last Admin: 08/23/20 10:41 Dose: 10 mg Documented by: Atorvastatin Calcium (Lipitor -) 20 mg PO HS [facility] Last Admin: 08/22/20 22:32 Dose: 20 mg Documented by: Enoxaparin Sodium (Lovenox -) 95 mg SQ BID [facility] Last Admin: 08/23/20 10:41 Dose: 95 mg Documented by: Furosemide (Lasix -) 20 mg PO DAILY [facility] Last Admin: 08/23/20 10:41 Dose: 20 mg Documented by: Hydrochlorothiazide (Hctz -) 25 mg PO DAILY [facility] Last Admin: 08/23/20 10:40 Dose: 25 mg Documented by: Insulin Aspart (Novolog Vial Sliding Scale -) 1 vial SQ ACHS [facility]; Protocol Last Admin: 08/23/20 12:59 Dose: 8 units Documented by: Labetalol HCl (Normodyne Injection -) 10 mg IVPUSH Q4H PRN PRN Reason: SBP> 160 OR DIASTOLIC > 100 Last Admin: 08/23/20 04:06 Dose: 10 mg Documented by: Metoprolol Succinate (Toprol Xl -) 50 mg PO DAILY [facility] Last Admin: 08/23/20 10:40 Dose: 50 mg Documented by: Spironolactone (Aldactone -) 25 mg PO DAILY [facility] Last Admin: 08/23/20 10:41 Dose: 25 mg Documented by: Valsartan (Diovan -) 320 mg PO DAILY [facility] Last Admin: 08/23/20 10:41 Dose: 320 mg Documented by: HOSPITAL COURSE: Date of Admission:08/21/20 Date of Discharge: 08/23/20 Pt admitted on 08/21/2020 due to acute chest pain syndrome. Her symptoms resolved rapidly and she was admitted to telemetry monitoring floor. She was noted to have hypertensive urgency refractory to her home medications and was bridged with IV Labetolol 10mg and increased dosing of HCTZ, Diovan, and norvasc. Patient was seen by cardiology and it was noted that in 01/2020 she had two territories of lateral ischemia which she was unable to receive catherization due to the COVID pandemic. Patient has been a poor follow-up and has expressed wishes to change her PMD which a new outpatient clinic card was provided. Pt is being discharged to [facility] for cardiac catherization. Her current medications include: Diovan 320mg qdaily (increased this admission) HCTZ 50mg qdaily (increased from 25 this admission) Norvasc 10mg qdaily (increased from 5 this admission) PRN Labetolol 10mg IVP q4h with monitoring to HR Toprol XL 50mg qdaily (increased from 25 this admit) Aldactone 25mg qdaily (initiated this admit) Lasix 20mg qdaily Lipitor 20mg HS Lovenox 95mg BID (prior DVT/PE 10/2019) Pt's BP range during this hospital day with all medications above being taken: 150-170/60-80 Minutes to complete discharge: 33 Discharge Summary Problems reviewed: Yes Reason For Visit: SHORTNESS OF BREATH, ATYPICAL CHEST PAIN, OBESITY Current Active Problems Chest pain (Acute) HTN (hypertension) (Acute) Obesity (BMI 30-39.9) (Acute) SOB (shortness of breath) (Acute) Condition: Stable - Instructions Diet, Activity, Other Instructions: You are being transferred to [facility] to have a cardiac catherization. Please listen to the recommendations of the cardiologists there. You were given a primary care doctor to establish care at (Dr. Quintana). Referrals: Jose Schwartz MD [Primary Care Provider] - Darvin Salcedo MD [Staff Physician] - Disposition: TRANSFER ACUTE CARE/OTHER HOSP - Home Medications Comprehensive Discharge Medication List: Ambulatory Orders Aspirin 81 mg PO DAILY 03/10/19 Furosemide [Lasix] 20 mg PO DAILY 03/10/19 Dapagliflozin Propanediol [Farxiga] 5 mg PO DAILY 05/10/19 Amlodipine Besylate 10 mg PO DAILY 02/07/20 Atorvastatin Ca [Lipitor] 40 mg PO HS 08/22/20 Clopidogrel Bisulfate [Plavix] 75 mg PO DAILY 08/22/20 Metformin HCl [Glucophage] 1,000 mg PO BID 08/22/20 Olmesartan/Hydrochlorothiazide [Olmesartan-Hctz 20-12.5 mg Tab] 1 each PO DAILY 08/22/20 Atorvastatin Ca [Lipitor] 20 mg PO HS tablet 08/23/20 Enoxaparin [Lovenox -] 95 mg SQ BID disp.syrin 08/23/20 Hydrochlorothiazide [Hctz -] 25 mg PO DAILY tablet 08/23/20 Insulin Sliding Scale [Novolog Vial Sliding Scale -] 1 vial SQ ACHS units 08/23/20 Labetalol HCl Injection [Normodyne Injection -] 10 mg IVPUSH Q4H PRN vial 08/23/20 Metoprolol Succinate [Toprol XL -] 50 mg PO DAILY tab.sr.24h 08/23/20 Valsartan [Diovan] 320 mg PO DAILY tablet 08/23/20 This patient is new to me today: No Emergency Visit: Yes ED Registration Date: 08/21/20 Care time: The patient presented to the Emergency Department on the above date and was hospitalized for further evaluation of their emergent condition. Critical Care patient: No - Discharge Referral Referred to [facility] Med [facility] No
[2020-08-23 14:49] VITALS: BP 174/75; PULSE 78; TEMP 98.3
== END 2020-08-23 15:37 | disposition short-term general hospital (02) | DRG 305 ==
LOC: JER 17:36 → JERBED 19:25 → J4W 08-22 02:05
PROVIDERS: ADMIT Hospitalist; ATTEND Internal Medicine
DX: I16.0 Hypertensive urgency (principal); I50.32 Chronic diastolic (congestive) heart failure; R07.89 Other chest pain; I25.10 Atherosclerotic heart disease of native coronary artery without angina pectoris; E78.00 Pure hypercholesterolemia, unspecified; E11.65 Type 2 diabetes mellitus with hyperglycemia; E87.6 Hypokalemia; E66.9 Obesity, unspecified; Z68.35 Body mass index [BMI] 35.0-35.9, adult; Z95.1 Presence of aortocoronary bypass graft; Z91.14 Patient's other noncompliance with medication regimen; E78.5 Hyperlipidemia, unspecified; Z95.5 Presence of coronary angioplasty implant and graft
CPT/HCPCS: 36415; 71045-TC-FY; 71275-TC; 80048; 80053; 80061; 81003; 82550; 82553; 82962; 83036; 83721; 83735; 83880; 84443; 84484; 85025; 85027; 85610; 85730; 87086; 93005; 93010; 93880-TC; 93970-TC; 99291; Q9967; U0003

== ENCOUNTER 2021-04-18 20:29 | Observation (INO) | payer OTHER ==
[2021-04-18 20:59] VITALS: BMI 30.7
[2021-04-18] MEDS ORDERED: ACETAMINOPHEN 325 MG TABLET (FP) PO ONE (21:32)
[2021-04-18 22:08] LABS: BASO % 0.8 % (0-2.0); EOS % 3.5 % (0-4.5); HEMATOCRIT 38.3 % (32.4-45.2); HEMOGLOBIN 13.4 GM/dL (10.7-15.3); LYMPH % 33.7 % (8-40); MCH 30.4 pg (25.7-33.7); MEAN CELL VOLUME 86.8 fl (80-96); MEAN PLT VOLUME 8.8 fl (7.5-11.1); PLATELET COUNT 215 K/MM3 (134-434); RBC 4.41 M/mm3 (3.60-5.2); RDW 13.7 % (11.6-15.6); WHITE BLOOD COUNT 5.6 K/mm3 (4.0-10.0)
[2021-04-18] MEDS ORDERED: ACETAMINOPHEN 325 MG TABLET (FP) ONE (22:21)
[2021-04-18 22:25] LABS: PROTHROMBIN TIME (PATIENT) 12.1 SEC (9.7-13.0)
[2021-04-18 22:28] LABS: ACTIVATED PTT 32.2 SECONDS (25.2-36.5)
[2021-04-18 22:37] LABS: CHLORIDE 100 mmol/L (98-107); SODIUM 136 mmol/L (136-145)
[2021-04-18 22:40] LABS: ALBUMIN 3.8 g/dl (3.4-5.0); ANION GAP 4 MMOL/L (8-16); BLOOD UREA NITROGEN 30.6 mg/dL (7-18); CALCIUM 9.5 mg/dL (8.5-10.1); CO2 32 mmol/L (21-32); GLUCOSE,RANDOM 359 mg/dL (74-106)
[2021-04-18 22:43] LABS: CREATININE 1.2 mg/dL (0.55-1.3); SGOT/AST 30 U/L (15-37); SGPT/ALT 20 U/L (13-61)
[2021-04-18 22:45] LABS: BILIRUBIN,TOTAL 0.6 mg/dL (0.2-1); TOT PROT 6.9 g/dl (6.4-8.2)
[2021-04-18 22:46] LABS: ALK PHOS 108 U/L (45-117)
[2021-04-18] MEDS ORDERED: ASPIRIN 81 MG CHEWABLE TABLETS PO ONE (22:47)
[2021-04-18] MEDS ORDERED: ASPIRIN 81 MG CHEWABLE TABLETS ONE (22:50)
[2021-04-19 06:34] VITALS: BP 141/84; PULSE 70; TEMP 97.6
[2021-04-19 06:37] LABS: BASO % 0.8 % (0-2.0); EOS % 3.8 % (0-4.5); HEMATOCRIT 38.5 % (32.4-45.2); HEMOGLOBIN 13.4 GM/dL (10.7-15.3); LYMPH % 39.3 % (8-40); MCH 30.2 pg (25.7-33.7); MCHC 34.9 g/dl (32.0-36.0); MEAN CELL VOLUME 86.8 fl (80-96); MEAN PLT VOLUME 8.3 fl (7.5-11.1); MONO % 7.7 % (3.8-10.2); NEUT % 48.4 % (42.8-82.8); PLATELET COUNT 199 K/MM3 (134-434); RBC 4.44 M/mm3 (3.60-5.2); RDW 13.6 % (11.6-15.6); WHITE BLOOD COUNT 5.5 K/mm3 (4.0-10.0)
[2021-04-19 07:20] LABS: ALBUMIN 3.8 g/dl (3.4-5.0); BILIRUBIN,TOTAL 0.6 mg/dL (0.2-1); BLOOD UREA NITROGEN 24.6 mg/dL (7-18); CALCIUM 9.4 mg/dL (8.5-10.1); CREATININE 0.8 mg/dL (0.55-1.3); TOT PROT 6.7 g/dl (6.4-8.2)
[2021-04-19] MEDS ORDERED: metFORMIN HCL 500 MG TABLET (FP) ONE (08:38)
[2021-04-19] MEDS: INSULIN SLIDING SCALE (NOVOLOG) 1 VIAL SQ SCH ×3 (08:49→17:56)
[2021-04-19] MEDS: metFORMIN HCL 500 MG TABLET (FP) PO SCH ×2 (08:49→17:56)
[2021-04-19] MEDS ORDERED: PATIENT'S OWN MEDICATION (NON-FORMULARY) (Metformin Hcl [Glucophage] 1,000 MG Tablet) PO SCH (10:00)
[2021-04-19] MEDS ORDERED: ISOSORBIDE MONONITRATE 60 MG TAB.SR.24H (FP) PO SCH (10:00)
[2021-04-19] MEDS ORDERED: amLODIPine BESYLATE 5 MG TABLET (FP) PO SCH (10:00)
[2021-04-19] MEDS ORDERED: ASPIRIN 81 MG CHEWABLE TABLETS PO SCH (10:00)
[2021-04-19] MEDS ORDERED: CLOPIDOGREL BISULFATE 75 MG TABLET (FP) PO SCH (10:00)
[2021-04-19] MEDS ORDERED: VALSARTAN 160 MG TABLET PO SCH (10:00)
[2021-04-19] MEDS ORDERED: ENOXAPARIN NA (PORCINE) 40 MG/0.4 ML DISP.SYRIN SQ SCH (10:00)
[2021-04-19 11:18] LABS: N-TERMINAL BNP 14.4 pg/ml (5-125)
[2021-04-19] MEDS ORDERED: ASPIRIN 81 MG CHEWABLE TABLETS ONE (11:27)
[2021-04-19] MEDS ORDERED: ISOSORBIDE MONONITRATE 60 MG TAB.SR.24H (FP) PO ONE (11:28)
[2021-04-19] MEDS ORDERED: CLOPIDOGREL BISULFATE 75 MG TABLET (FP) ONE (11:28)
[2021-04-19] MEDS ORDERED: amLODIPine BESYLATE 5 MG TABLET (FP) ONE (11:28)
[2021-04-19] MEDS ORDERED: ENOXAPARIN NA (PORCINE) 40 MG/0.4 ML DISP.SYRIN SQ ONE (11:29)
[2021-04-19] MEDS ORDERED: INSULIN SLIDING SCALE (NOVOLOG) 1 VIAL SQ ONE (17:42)
[2021-04-19] MEDS ORDERED: ATORVASTATIN CA 40 MG TABLET (FP) PO SCH (22:00)
== END 2021-04-19 19:09 | disposition left against medical advice (07) ==
LOC: JER 20:29 → UNDOADMOB 21:35 → INTOOBSV 21:35 → JERBED 21:35
PROVIDERS: ADMIT Internal Medicine; ATTEND Internal Medicine
PROC: 3E023GC Introduction of Other Therapeutic Substance into Muscle, Percutaneous Approach (ICD-10-PCS; principal; 2021-04-19)
PROC: 3E013VG Introduction of Insulin into Subcutaneous Tissue, Percutaneous Approach (ICD-10-PCS; 2021-04-19)
DX: I25.10 Atherosclerotic heart disease of native coronary artery without angina pectoris (principal); F41.9 Anxiety disorder, unspecified; E78.5 Hyperlipidemia, unspecified; I11.0 Hypertensive heart disease with heart failure; I50.30 Unspecified diastolic (congestive) heart failure; E66.9 Obesity, unspecified; Z68.30 Body mass index [BMI] 30.0-30.9, adult; I25.2 Old myocardial infarction; Z95.1 Presence of aortocoronary bypass graft; Z87.891 Personal history of nicotine dependence; Z79.82 Long term (current) use of aspirin; Z72.89 Other problems related to lifestyle; Z29.9 Encounter for prophylactic measures, unspecified
CPT/HCPCS: 36415; 71045-TC-FY; 78452-TC; 80053; 80061; 82550; 82553; 82962; 83036; 83721; 83880; 84484; 85025; 85610; 85730; 93005; 93010; 93017; 93306-TC; 96372; 99285-25; A9502; C9803; G0378; U0003; U0005

== ENCOUNTER 2021-08-30 11:00 | Emergency (ER) | payer OTHER ==
[2021-08-30 11:07] VITALS: BMI 37.8
[2021-08-30] MEDS ORDERED: LIDOCAINE 5% TOPICAL PATCH TP ONE (12:17)
[2021-08-30] MEDS ORDERED: ACETAMINOPHEN 325 MG TABLET (FP) PO ONE (12:17)
[2021-08-30] MEDS ORDERED: LIDOCAINE 5% TOPICAL PATCH ONE (12:34)
[2021-08-30] MEDS ORDERED: ACETAMINOPHEN 325 MG TABLET (FP) ONE (12:34)
[2021-08-30 14:01] LABS: BASO % 0.4 % (0-2.0); EOS % 1.3 % (0-4.5); HEMATOCRIT 41.8 % (32.4-45.2); HEMOGLOBIN 14.9 GM/dL (10.7-15.3); LYMPH % 20.3 % (8-40); MCH 30.8 pg (25.7-33.7); MCHC 35.6 g/dl (32.0-36.0); MEAN CELL VOLUME 86.4 fl (80-96); MONO % 7.7 % (3.8-10.2); NEUT % 70.3 % (42.8-82.8); PLATELET COUNT 249 10^3/uL (134-434); RBC 4.83 M/mm3 (3.60-5.2); WHITE BLOOD COUNT 7.9 K/mm3 (4.0-10.0)
[2021-08-30 14:07] LABS: INR 0.98 (0.83-1.09)
[2021-08-30 14:20] LABS: CHLORIDE 103 mmol/L (98-107); SODIUM 140 mmol/L (136-145)
[2021-08-30 14:22] LABS: ALBUMIN 3.8 g/dl (3.4-5.0); BLOOD UREA NITROGEN 13.3 mg/dL (7-18); CALCIUM 9.3 mg/dL (8.5-10.1)
[2021-08-30 14:23] LABS: ANION GAP 8 MMOL/L (8-16); CO2 29 mmol/L (21-32); GLUCOSE,RANDOM 212 mg/dL (74-106)
[2021-08-30 14:26] LABS: CREATININE 0.9 mg/dL (0.55-1.3); SGOT/AST 15 U/L (15-37); SGPT/ALT 20 U/L (13-61)
[2021-08-30 14:27] LABS: BILIRUBIN,TOTAL 0.6 mg/dL (0.2-1); TOT PROT 7.3 g/dl (6.4-8.2)
[2021-08-30 14:28] LABS: ALK PHOS 133 U/L (45-117)
[2021-08-30] MEDS ORDERED: POTASSIUM CHLORIDE TABS 20 MEQ TABLET.ER (FP) PO ONE (15:25)
[2021-08-30] MEDS ORDERED: POTASSIUM CHLORIDE TABS 10 MEQ TABLET.ER (FP) ONE (15:29)
[2021-08-30 15:49] VITALS: BP 157/76; PULSE 77; TEMP 97.9
[2021-08-30] MEDS ORDERED: LIDOCAINE PATCH REMOVAL MC SCH (22:00)
== END 2021-08-30 15:35 | disposition home or self-care (01) ==
LOC: JER 11:00
DX: M54.12 Radiculopathy, cervical region (principal)
CPT/HCPCS: 36415; 70450-TC; 80053; 82550; 84484; 85025; 85610; 93005; 93010; 99285-25

== ENCOUNTER 2021-12-10 23:40 | Inpatient (IN) | payer OTHER ==
[2021-12-11] MEDS ORDERED: SODIUM CHLORIDE 0.9% 500 ML INFUS.BAG IV ONE (00:19)
[2021-12-11 01:58] LABS: BASO % 0.4 % (0-2.0); EOS % 0.2 % (0-4.5); HEMATOCRIT 35.7 % (32.4-45.2); HEMOGLOBIN 12.2 GM/dL (10.7-15.3); LYMPH % 7.7 % (8-40); MCH 29.4 pg (25.7-33.7); MCHC 34.2 g/dl (32.0-36.0); MEAN CELL VOLUME 85.7 fl (80-96); MEAN PLT VOLUME 8.1 fl (7.5-11.1); MONO % 15.8 % (3.8-10.2); NEUT % 75.9 % (42.8-82.8); PLATELET COUNT 208 10^3/uL (134-434); RBC 4.17 M/mm3 (3.60-5.2); RDW 13.8 % (11.6-15.6); WHITE BLOOD COUNT 10.9 K/mm3 (4.0-10.0)
[2021-12-11 02:07] LABS: INR 1.25 (0.83-1.09); PROTHROMBIN TIME (PATIENT) 14.4 SEC (9.7-13.0)
[2021-12-11 02:09] LABS: ACTIVATED PTT 38.8 SECONDS (25.2-36.5)
[2021-12-11 02:32] LABS: CALCIUM 8.5 mg/dL (8.5-10.1)
[2021-12-11 02:33] LABS: ALBUMIN 2.5 g/dl (3.4-5.0); BLOOD UREA NITROGEN 30.4 mg/dL (7-18); CO2 26 mmol/L (21-32); GLUCOSE,RANDOM 301 mg/dL (74-106)
[2021-12-11 02:36] LABS: CREATININE 1.5 mg/dL (0.55-1.3); SGOT/AST 56 U/L (15-37); SGPT/ALT 44 U/L (13-61)
[2021-12-11 02:37] LABS: BILIRUBIN,TOTAL 1.2 mg/dL (0.2-1); TOT PROT 6.3 g/dl (6.4-8.2)
[2021-12-11 02:38] LABS: ALK PHOS 223 U/L (45-117)
[2021-12-11 03:32] LABS: ANION GAP 10 MMOL/L (8-16); CHLORIDE 100 mmol/L (98-107); SODIUM 137 mmol/L (136-145)
[2021-12-11] MEDS ORDERED: SODIUM CHLORIDE 0.45% 1,000 ML IV SCH (09:45)
[2021-12-11] MEDS: INSULIN SLIDING SCALE (NOVOLOG) 1 VIAL SQ SCH ×3 (12:00→21:57)
[2021-12-11] MEDS ORDERED: ISOSORBIDE MONONITRATE 60 MG TAB.SR.24H (FP) PO ONE (12:04)
[2021-12-11] MEDS ORDERED: amLODIPine BESYLATE 5 MG TABLET (FP) ONE (12:04)
[2021-12-11] MEDS ORDERED: CLOPIDOGREL BISULFATE 75 MG TABLET (FP) ONE (12:04)
[2021-12-11] MEDS ORDERED: ASPIRIN 81 MG CHEWABLE TABLETS ONE (12:04)
[2021-12-11] MEDS ORDERED: VALSARTAN 80 MG TABLET ONE (12:05)
[2021-12-11] MEDS: ASPIRIN 81 MG CHEWABLE TABLETS PO SCH (12:17)
[2021-12-11] MEDS: VALSARTAN 160 MG TABLET PO SCH (12:17)
[2021-12-11] MEDS: ISOSORBIDE MONONITRATE 60 MG TAB.SR.24H (FP) PO SCH (12:17)
[2021-12-11] MEDS: amLODIPine BESYLATE 5 MG TABLET (FP) PO SCH (12:17)
[2021-12-11] MEDS: CLOPIDOGREL BISULFATE 75 MG TABLET (FP) PO SCH (12:17)
[2021-12-11 16:41] LABS: EPI CELLS 14 /uL (0-25.1); HYALINE CASTS 4 /uL (0-3.1); PH,URINE 5.5 (5.0-8.0); URINE APPEARANCE CLOUDY; URINE BACTERIA >9,000 /uL (0-1359); URINE BILIRUBIN NEGATIVE (NEGATIVE); URINE COLOR YELLOW; URINE GLUCOSE (UA) 3+ (NEGATIVE); URINE KETONE 1+ (NEGATIVE); URINE LEUK ESTERASE TRACE (NEGATIVE); URINE NITRITE NEGATIVE (NEGATIVE); URINE PROTEIN 2+ (NEGATIVE); URINE RBC 41 /uL (0-23.9); URINE WBC 327 /uL (0-25.8)
[2021-12-11 17:18] VITALS: BMI 31.9
[2021-12-11] MEDS ORDERED: CEFTRIAXONE 1 GM in DEXTROSE 5%-WATER - 50 ML IVPB ONE (17:19)
[2021-12-11] MEDS: SODIUM CHLORIDE 0.45% 1,000 ML IV SCH (17:25)
[2021-12-11] MEDS ORDERED: DEXTROSE 5%-WATER - 50 ML IVPB ONE ×2 (17:47→18:55)
[2021-12-11] MEDS ORDERED: cefTRIAXone SODIUM 1 GM VIAL ONE (17:47)
[2021-12-11] MEDS ORDERED: PIPERACILLIN/TAZOBACTAM 3.375 GM VIAL IVPB ONE (18:55)
[2021-12-11] MEDS: PIPERACILLIN/TAZOB 3.375 GM 3.375 GM in DEXTROSE 5%-WATER - 50 ML IVPB SCH (19:05)
[2021-12-11] MEDS: ATORVASTATIN CA 80 MG TABLET (FP) PO SCH (21:58)
[2021-12-12] MEDS ORDERED: DEXTROSE 5%-WATER - 50 ML IVPB ONE ×2 (01:28→09:21)
[2021-12-12] MEDS ORDERED: PIPERACILLIN/TAZOBACTAM 3.375 GM VIAL IVPB ONE ×2 (01:28→09:21)
[2021-12-12] MEDS: PIPERACILLIN/TAZOB 3.375 GM 3.375 GM in DEXTROSE 5%-WATER - 50 ML IVPB SCH ×3 (02:04→18:26)
[2021-12-12] MEDS: INSULIN SLIDING SCALE (NOVOLOG) 1 VIAL SQ SCH ×4 (06:09→21:31)
[2021-12-12] MEDS: ISOSORBIDE MONONITRATE 60 MG TAB.SR.24H (FP) PO SCH (09:32)
[2021-12-12] MEDS: VALSARTAN 160 MG TABLET PO SCH (09:32)
[2021-12-12] MEDS: CLOPIDOGREL BISULFATE 75 MG TABLET (FP) PO SCH (09:33)
[2021-12-12] MEDS: ASPIRIN 81 MG CHEWABLE TABLETS PO SCH (09:33)
[2021-12-12] MEDS: amLODIPine BESYLATE 5 MG TABLET (FP) PO SCH (09:33)
[2021-12-12 10:36] LABS: HEMATOCRIT 36.3 % (32.4-45.2); MCH 28.5 pg (25.7-33.7); MCHC 33.1 g/dl (32.0-36.0); MEAN CELL VOLUME 86.2 fl (80-96); MEAN PLT VOLUME 8.7 fl (7.5-11.1); PLATELET COUNT 266 10^3/uL (134-434); RBC 4.21 M/mm3 (3.60-5.2); WHITE BLOOD COUNT 13.8 K/mm3 (4.0-10.0)
[2021-12-12 10:54] LABS: CALCIUM 8.7 mg/dL (8.5-10.1)
[2021-12-12 10:55] LABS: ALBUMIN 2.2 g/dl (3.4-5.0); BLOOD UREA NITROGEN 28.2 mg/dL (7-18)
[2021-12-12 10:58] LABS: CREATININE 1.3 mg/dL (0.55-1.3)
[2021-12-12 11:00] LABS: BILIRUBIN,TOTAL 1.1 mg/dL (0.2-1); TOT PROT 6.2 g/dl (6.4-8.2)
[2021-12-12] MEDS ORDERED: POTASSIUM CHLORIDE TABS 20 MEQ TABLET.ER (FP) PO ONE (12:43)
[2021-12-12] MEDS ORDERED: KCL 10 MEQ IVPB 10 MEQ/100 ML INFUS.BAG IVPB SCH (12:45)
[2021-12-12 12:56] LABS: ANISOCYTOSIS 0; HELMET CELLS 0; HOWELL-JOLLY BODIES 0; MACROCYTOSIS 0; OVALOCYTE 0; PLATELET ESTIMATE NORMAL; ROULEAU 0; SICKELED CELLS 0; TARGET CELLS 0; TEAR DROP CELLS 0; TOXIC GRANULATION 0
[2021-12-12] MEDS: SULFAMETHOXAZOLE/TRIMETHOPRIM 800MG/160MG D.S. TABLET PO SCH ×2 (17:54→21:31)
[2021-12-12] MEDS: SODIUM CHLORIDE 0.45% 1,000 ML IV SCH (18:28)
[2021-12-12] MEDS: ATORVASTATIN CA 80 MG TABLET (FP) PO SCH (21:31)
[2021-12-13] MEDS ORDERED: PIPERACILLIN/TAZOBACTAM 3.375 GM VIAL IVPB ONE ×4 (00:58→23:25)
[2021-12-13] MEDS ORDERED: DEXTROSE 5%-WATER - 50 ML IVPB ONE ×4 (00:58→23:26)
[2021-12-13] MEDS: PIPERACILLIN/TAZOB 3.375 GM 3.375 GM in DEXTROSE 5%-WATER - 50 ML IVPB SCH ×3 (01:06→19:23)
[2021-12-13] MEDS: SODIUM CHLORIDE 0.45% 1,000 ML IV SCH (01:06)
[2021-12-13] MEDS: INSULIN SLIDING SCALE (NOVOLOG) 1 VIAL SQ SCH ×4 (06:00→23:27)
[2021-12-13 10:04] LABS: HEMATOCRIT 36.6 % (32.4-45.2); MCH 28.3 pg (25.7-33.7); MCHC 32.8 g/dl (32.0-36.0); MEAN CELL VOLUME 86.3 fl (80-96); MEAN PLT VOLUME 8.8 fl (7.5-11.1); PLATELET COUNT 287 10^3/uL (134-434); RBC 4.25 M/mm3 (3.60-5.2); RDW 14.1 % (11.6-15.6); WHITE BLOOD COUNT 16.9 K/mm3 (4.0-10.0)
[2021-12-13 10:26] LABS: ALBUMIN 2.1 g/dl (3.4-5.0); BLOOD UREA NITROGEN 24.6 mg/dL (7-18); CALCIUM 8.8 mg/dL (8.5-10.1); MAGNESIUM 2.4 mg/dL (1.8-2.4)
[2021-12-13 10:29] LABS: CREATININE 1.1 mg/dL (0.55-1.3)
[2021-12-13 10:31] LABS: BILIRUBIN,TOTAL 0.9 mg/dL (0.2-1); TOT PROT 6.1 g/dl (6.4-8.2)
[2021-12-13] MEDS ORDERED: POTASSIUM CHLORIDE TABS 20 MEQ TABLET.ER (FP) PO ONE (11:17)
[2021-12-13 11:44] LABS: ANISOCYTOSIS 2+; MACROCYTOSIS 1+; PLATELET ESTIMATE NORMAL
[2021-12-13] MEDS: ASPIRIN 81 MG CHEWABLE TABLETS PO SCH (12:21)
[2021-12-13] MEDS: ISOSORBIDE MONONITRATE 60 MG TAB.SR.24H (FP) PO SCH (12:21)
[2021-12-13] MEDS: amLODIPine BESYLATE 5 MG TABLET (FP) PO SCH (12:21)
[2021-12-13] MEDS: VALSARTAN 160 MG TABLET PO SCH (12:21)
[2021-12-13] MEDS: SULFAMETHOXAZOLE/TRIMETHOPRIM 800MG/160MG D.S. TABLET PO SCH ×2 (12:22→22:25)
[2021-12-13] MEDS: CLOPIDOGREL BISULFATE 75 MG TABLET (FP) PO SCH (12:22)
[2021-12-14] MEDS: PIPERACILLIN/TAZOB 3.375 GM 3.375 GM in DEXTROSE 5%-WATER - 50 ML IVPB SCH ×3 (01:56→18:18)
[2021-12-14] MEDS: INSULIN SLIDING SCALE (NOVOLOG) 1 VIAL SQ SCH ×4 (06:42→22:30)
[2021-12-14] MEDS ORDERED: PIPERACILLIN/TAZOBACTAM 3.375 GM VIAL IVPB ONE ×2 (10:10→18:10)
[2021-12-14] MEDS ORDERED: DEXTROSE 5%-WATER - 50 ML IVPB ONE ×2 (10:11→18:10)
[2021-12-14] MEDS: amLODIPine BESYLATE 5 MG TABLET (FP) PO SCH (11:01)
[2021-12-14] MEDS: ISOSORBIDE MONONITRATE 60 MG TAB.SR.24H (FP) PO SCH (11:01)
[2021-12-14] MEDS: VALSARTAN 160 MG TABLET PO SCH (11:02)
[2021-12-14] MEDS: CLOPIDOGREL BISULFATE 75 MG TABLET (FP) PO SCH (11:02)
[2021-12-14] MEDS: ASPIRIN 81 MG CHEWABLE TABLETS PO SCH (11:02)
[2021-12-14] MEDS: SULFAMETHOXAZOLE/TRIMETHOPRIM 800MG/160MG D.S. TABLET PO SCH ×2 (11:02→22:26)
[2021-12-14 14:32] LABS: BASO % 0.5 % (0-2.0); EOS % 0.4 % (0-4.5); HEMATOCRIT 34.4 % (32.4-45.2); HEMOGLOBIN 11.1 GM/dL (10.7-15.3); LYMPH % 7.2 % (8-40); MCH 28.3 pg (25.7-33.7); MCHC 32.4 g/dl (32.0-36.0); MEAN CELL VOLUME 87.3 fl (80-96); MEAN PLT VOLUME 8.5 fl (7.5-11.1); MONO % 6.5 % (3.8-10.2); NEUT % 85.4 % (42.8-82.8); PLATELET COUNT 321 10^3/uL (134-434); RBC 3.94 M/mm3 (3.60-5.2); RDW 14.5 % (11.6-15.6); WHITE BLOOD COUNT 14.7 K/mm3 (4.0-10.0)
[2021-12-14 14:39] LABS: INR 1.16 (0.83-1.09); PROTHROMBIN TIME (PATIENT) 13.4 SEC (9.7-13.0)
[2021-12-14 14:41] LABS: ACTIVATED PTT 28.3 SECONDS (25.2-36.5)
[2021-12-14 14:55] LABS: CALCIUM 8.5 mg/dL (8.5-10.1)
[2021-12-14 14:56] LABS: ALBUMIN 2.1 g/dl (3.4-5.0); BLOOD UREA NITROGEN 21.4 mg/dL (7-18)
[2021-12-14 14:59] LABS: CREATININE 1.1 mg/dL (0.55-1.3)
[2021-12-14 15:00] LABS: BILIRUBIN,TOTAL 0.5 mg/dL (0.2-1)
[2021-12-15] MEDS ORDERED: PIPERACILLIN/TAZOBACTAM 3.375 GM VIAL IVPB ONE (04:48)
[2021-12-15] MEDS ORDERED: DEXTROSE 5%-WATER - 50 ML IVPB ONE ×2 (04:49→09:53)
[2021-12-15] MEDS: PIPERACILLIN/TAZOB 3.375 GM 3.375 GM in DEXTROSE 5%-WATER - 50 ML IVPB SCH (04:58)
[2021-12-15] MEDS: INSULIN SLIDING SCALE (NOVOLOG) 1 VIAL SQ SCH ×4 (07:05→22:30)
[2021-12-15] MEDS ORDERED: ceFAZolin SODIUM 1 GM VIAL ONE (09:53)
[2021-12-15] MEDS: CEFAZOLIN 1 GM in DEXTROSE 5%-WATER - 1 GM/50 ML IVPB IVPB SCH ×2 (09:59→18:55)
[2021-12-15] MEDS: ISOSORBIDE MONONITRATE 60 MG TAB.SR.24H (FP) PO SCH (10:00)
[2021-12-15] MEDS: amLODIPine BESYLATE 5 MG TABLET (FP) PO SCH (10:00)
[2021-12-15] MEDS: SULFAMETHOXAZOLE/TRIMETHOPRIM 800MG/160MG D.S. TABLET PO SCH ×2 (10:00→22:01)
[2021-12-15] MEDS: CLOPIDOGREL BISULFATE 75 MG TABLET (FP) PO SCH (10:00)
[2021-12-15] MEDS: VALSARTAN 160 MG TABLET PO SCH (10:00)
[2021-12-15] MEDS: ASPIRIN 81 MG CHEWABLE TABLETS PO SCH (10:00)
[2021-12-15 11:07] LABS: BASO % 0.5 % (0-2.0); EOS % 0.5 % (0-4.5); HEMATOCRIT 34.7 % (32.4-45.2); HEMOGLOBIN 11.6 GM/dL (10.7-15.3); MCH 29.1 pg (25.7-33.7); MCHC 33.5 g/dl (32.0-36.0); MEAN CELL VOLUME 86.9 fl (80-96); MEAN PLT VOLUME 8.1 fl (7.5-11.1); MONO % 5.3 % (3.8-10.2); NEUT % 85.7 % (42.8-82.8); PLATELET COUNT 372 10^3/uL (134-434); RDW 14.3 % (11.6-15.6); WHITE BLOOD COUNT 12.2 K/mm3 (4.0-10.0)
[2021-12-15 11:48] LABS: ALBUMIN 2.2 g/dl (3.4-5.0); BLOOD UREA NITROGEN 18.1 mg/dL (7-18); CALCIUM 8.5 mg/dL (8.5-10.1)
[2021-12-15 11:51] LABS: CREATININE 1.1 mg/dL (0.55-1.3)
[2021-12-15 11:52] LABS: TOT PROT 6.5 g/dl (6.4-8.2)
[2021-12-15 11:53] LABS: BILIRUBIN,TOTAL 0.6 mg/dL (0.2-1)
[2021-12-16] MEDS ORDERED: ceFAZolin SODIUM 1 GM VIAL ONE ×2 (02:01→09:13)
[2021-12-16] MEDS ORDERED: DEXTROSE 5%-WATER - 50 ML IVPB ONE ×2 (02:02→09:13)
[2021-12-16] MEDS: CEFAZOLIN 1 GM in DEXTROSE 5%-WATER - 1 GM/50 ML IVPB IVPB SCH ×3 (02:03→18:18)
[2021-12-16] MEDS: INSULIN SLIDING SCALE (NOVOLOG) 1 VIAL SQ SCH ×4 (06:08→21:42)
[2021-12-16] MEDS: VALSARTAN 160 MG TABLET PO SCH ×2 (06:09→09:17)
[2021-12-16] MEDS: amLODIPine BESYLATE 5 MG TABLET (FP) PO SCH ×2 (06:10→09:17)
[2021-12-16] MEDS: SULFAMETHOXAZOLE/TRIMETHOPRIM 800MG/160MG D.S. TABLET PO SCH ×2 (09:16→21:42)
[2021-12-16] MEDS: ISOSORBIDE MONONITRATE 60 MG TAB.SR.24H (FP) PO SCH (09:16)
[2021-12-16] MEDS: ASPIRIN 81 MG CHEWABLE TABLETS PO SCH (09:16)
[2021-12-16] MEDS: CLOPIDOGREL BISULFATE 75 MG TABLET (FP) PO SCH (09:16)
[2021-12-16 10:07] LABS: HEMATOCRIT 35.5 % (32.4-45.2); HEMOGLOBIN 11.6 GM/dL (10.7-15.3); MCH 28.5 pg (25.7-33.7); MCHC 32.6 g/dl (32.0-36.0); MEAN CELL VOLUME 87.4 fl (80-96); MEAN PLT VOLUME 7.7 fl (7.5-11.1); PLATELET COUNT 400 10^3/uL (134-434); RBC 4.06 M/mm3 (3.60-5.2); RDW 14.7 % (11.6-15.6); WHITE BLOOD COUNT 10.2 K/mm3 (4.0-10.0)
[2021-12-16 10:24] LABS: CALCIUM 8.7 mg/dL (8.5-10.1)
[2021-12-16 10:25] LABS: ALBUMIN 2.2 g/dl (3.4-5.0); BLOOD UREA NITROGEN 14.3 mg/dL (7-18)
[2021-12-16 10:29] LABS: BILIRUBIN,TOTAL 0.6 mg/dL (0.2-1); TOT PROT 6.2 g/dl (6.4-8.2)
[2021-12-16 11:15] LABS: ANISOCYTOSIS 0; MACROCYTOSIS 0; PLATELET ESTIMATE NORMAL
[2021-12-17] MEDS ORDERED: ceFAZolin SODIUM 1 GM VIAL ONE ×2 (01:11→09:10)
[2021-12-17] MEDS ORDERED: DEXTROSE 5%-WATER - 50 ML IVPB ONE ×2 (01:12→09:10)
[2021-12-17] MEDS: CEFAZOLIN 1 GM in DEXTROSE 5%-WATER - 1 GM/50 ML IVPB IVPB SCH ×2 (02:26→09:19)
[2021-12-17] MEDS: INSULIN SLIDING SCALE (NOVOLOG) 1 VIAL SQ SCH ×4 (06:04→21:31)
[2021-12-17] MEDS: VALSARTAN 160 MG TABLET PO SCH (09:20)
[2021-12-17] MEDS: amLODIPine BESYLATE 5 MG TABLET (FP) PO SCH (09:21)
[2021-12-17] MEDS: ISOSORBIDE MONONITRATE 60 MG TAB.SR.24H (FP) PO SCH (09:21)
[2021-12-17] MEDS: ASPIRIN 81 MG CHEWABLE TABLETS PO SCH (09:21)
[2021-12-17] MEDS: SULFAMETHOXAZOLE/TRIMETHOPRIM 800MG/160MG D.S. TABLET PO SCH (09:21)
[2021-12-17] MEDS: CLOPIDOGREL BISULFATE 75 MG TABLET (FP) PO SCH (09:21)
[2021-12-17 12:45] LABS: BASO % 0.5 % (0-2.0); HEMATOCRIT 37.2 % (32.4-45.2); HEMOGLOBIN 12.4 GM/dL (10.7-15.3); LYMPH % 13.4 % (8-40); MCH 28.9 pg (25.7-33.7); MCHC 33.3 g/dl (32.0-36.0); MEAN CELL VOLUME 86.6 fl (80-96); MEAN PLT VOLUME 7.7 fl (7.5-11.1); MONO % 7.2 % (3.8-10.2); NEUT % 77.9 % (42.8-82.8); PLATELET COUNT 410 10^3/uL (134-434); RBC 4.29 M/mm3 (3.60-5.2); RDW 14.3 % (11.6-15.6); WHITE BLOOD COUNT 9.5 K/mm3 (4.0-10.0)
[2021-12-17 12:56] LABS: CALCIUM 9.3 mg/dL (8.5-10.1)
[2021-12-17 12:57] LABS: BLOOD UREA NITROGEN 17.8 mg/dL (7-18)
[2021-12-17 13:00] LABS: CREATININE 1.1 mg/dL (0.55-1.3)
[2021-12-17 13:02] LABS: BILIRUBIN,TOTAL 0.3 mg/dL (0.2-1)
[2021-12-17 13:06] LABS: ALBUMIN 2.7 g/dl (3.4-5.0)
[2021-12-17] MEDS: CEPHALEXIN MONOHYDRATE 500 MG CAPSULE (UD) PO SCH ×2 (17:35→23:56)
[2021-12-18] MEDS: CEPHALEXIN MONOHYDRATE 500 MG CAPSULE (UD) PO SCH ×2 (06:23→12:10)
[2021-12-18] MEDS: INSULIN SLIDING SCALE (NOVOLOG) 1 VIAL SQ SCH ×2 (06:54→12:08)
[2021-12-18] MEDS: amLODIPine BESYLATE 5 MG TABLET (FP) PO SCH (10:01)
[2021-12-18] MEDS: VALSARTAN 160 MG TABLET PO SCH (10:01)
[2021-12-18] MEDS: ISOSORBIDE MONONITRATE 60 MG TAB.SR.24H (FP) PO SCH (10:01)
[2021-12-18] MEDS: CLOPIDOGREL BISULFATE 75 MG TABLET (FP) PO SCH (10:02)
[2021-12-18] MEDS: ASPIRIN 81 MG CHEWABLE TABLETS PO SCH (10:02)
[2021-12-18 15:10] VITALS: BP 154/84; PULSE 95; TEMP 98.1
== END 2021-12-18 16:24 | disposition home health service (06) | DRG 871 ==
LOC: JER 23:40 → UNDOADMOB 12-11 05:18 → JERBED 12-11 05:18 → INTOOBSV 12-11 05:18 → JERBED 12-11 13:21 → J5S 12-11 13:21 → UNDOADMOB 12-11 14:52 → J5S 12-11 14:52 → JERBED 12-11 14:52 → J5S 12-12 14:45 → JERBED 12-12 14:45 → INTOOBSV 12-12 14:45 → OBSVTOIN 12-12 14:45
PROVIDERS: ADMIT Internal Medicine; ATTEND Internal Medicine
PROC: 05HB33Z Insertion of Infusion Device into Right Basilic Vein, Percutaneous Approach (ICD-10-PCS; principal; 2021-12-13)
PROC: B54MZZA Ultrasonography of Right Upper Extremity Veins, Guidance (ICD-10-PCS; 2021-12-13)
DX: A41.51 Sepsis due to Escherichia coli [E. coli] (principal); G93.41 Metabolic encephalopathy; N39.0 Urinary tract infection, site not specified; N17.9 Acute kidney failure, unspecified; I50.32 Chronic diastolic (congestive) heart failure; I25.10 Atherosclerotic heart disease of native coronary artery without angina pectoris; I11.0 Hypertensive heart disease with heart failure; R79.89 Other specified abnormal findings of blood chemistry; E78.5 Hyperlipidemia, unspecified; E11.9 Type 2 diabetes mellitus without complications; E87.6 Hypokalemia; R50.9 Fever, unspecified; D72.829 Elevated white blood cell count, unspecified; R41.0 Disorientation, unspecified; E78.00 Pure hypercholesterolemia, unspecified; B96.20 Unspecified Escherichia coli [E. coli] as the cause of diseases classified elsewhere; Z95.1 Presence of aortocoronary bypass graft; Z86.711 Personal history of pulmonary embolism; Z86.718 Personal history of other venous thrombosis and embolism; I25.2 Old myocardial infarction; Z79.4 Long term (current) use of insulin
CPT/HCPCS: 36415; 70450-TC; 71045-TC-FY; 74181-TC; 76705-TC; 80053; 81003; 82010; 82550; 82553; 82962; 83735; 84484; 85025; 85610; 85730; 86704; 86708; 86803; 86850; 86900; 86901; 87040; 87086; 87186; 87340; 87517; 93005; 93010; 99285-25; C9803; U0003; U0005

== ENCOUNTER 2022-05-20 12:17 | Inpatient (IN) | payer OTHER ==
[2022-05-20 12:40] VITALS: BMI 37.8
[2022-05-20] MEDS ORDERED: ASPIRIN 81 MG CHEWABLE TABLETS PO ONE (12:56)
[2022-05-20] MEDS ORDERED: ASPIRIN 81 MG CHEWABLE TABLETS ONE (13:00)
[2022-05-20] MEDS ORDERED: ISOSORBIDE MONONITRATE 60 MG TAB.SR.24H (FP) PO ONE ×2 (13:01→13:09)
[2022-05-20] MEDS ORDERED: amLODIPine BESYLATE 10 MG TABLET (FP) PO ONE (13:02)
[2022-05-20] MEDS ORDERED: VALSARTAN 160 MG TABLET PO ONE (13:02)
[2022-05-20] MEDS ORDERED: amLODIPine BESYLATE 10 MG TABLET (FP) ONE (13:09)
[2022-05-20] MEDS ORDERED: VALSARTAN 80 MG TABLET ONE (13:10)
[2022-05-20 13:36] LABS: BASO % 0.5 % (0-2.0); EOS % 1.6 % (0-4.5); HEMATOCRIT 40.9 % (32.4-45.2); HEMOGLOBIN 14.2 GM/dL (10.7-15.3); LYMPH % 35.9 % (8-40); MCH 29.8 pg (25.7-33.7); MCHC 34.7 g/dl (32.0-36.0); MEAN PLT VOLUME 8.2 fl (7.5-11.1); MONO % 8.6 % (3.8-10.2); NEUT % 53.4 % (42.8-82.8); PLATELET COUNT 246 10^3/uL (134-434); RBC 4.75 M/mm3 (3.60-5.2); RDW 13.7 % (11.6-15.6); WHITE BLOOD COUNT 5.5 K/mm3 (4.0-10.0)
[2022-05-20 13:42] LABS: PROTHROMBIN TIME (PATIENT) 11.5 SEC (9.7-13.0)
[2022-05-20 13:45] LABS: ACTIVATED PTT 36.8 SECONDS (25.2-36.5)
[2022-05-20 13:48] LABS: CALCIUM 9.7 mg/dL (8.5-10.1)
[2022-05-20 13:49] LABS: BLOOD UREA NITROGEN 23.5 mg/dL (7-18); MAGNESIUM 1.9 mg/dL (1.8-2.4)
[2022-05-20 13:52] LABS: CREATININE 1.1 mg/dL (0.55-1.3)
[2022-05-20 13:53] LABS: TOT PROT 7.7 g/dl (6.4-8.2)
[2022-05-20 13:57] LABS: N-TERMINAL BNP 21.3 pg/ml (5-125)
[2022-05-20 13:58] LABS: BILIRUBIN,TOTAL 0.6 mg/dL (0.2-1)
[2022-05-20] MEDS ORDERED: ATORVASTATIN CA 80 MG TABLET (FP) ONE (22:36)
[2022-05-20] MEDS: ATORVASTATIN CA 80 MG TABLET (FP) PO SCH (22:54)
[2022-05-21] MEDS ORDERED: metFORMIN HCL 500 MG TABLET (FP) ONE (06:28)
[2022-05-21] MEDS: metFORMIN HCL 500 MG TABLET (FP) PO SCH ×2 (06:32→17:26)
[2022-05-21] MEDS ORDERED: amLODIPine BESYLATE 10 MG TABLET (FP) ONE (08:46)
[2022-05-21] MEDS ORDERED: ISOSORBIDE MONONITRATE 60 MG TAB.SR.24H (FP) PO ONE (08:46)
[2022-05-21] MEDS ORDERED: CLOPIDOGREL BISULFATE 75 MG TABLET (FP) ONE (08:47)
[2022-05-21] MEDS ORDERED: ASPIRIN 81 MG CHEWABLE TABLETS ONE (08:47)
[2022-05-21] MEDS ORDERED: VALSARTAN 80 MG TABLET ONE (08:47)
[2022-05-21] MEDS: VALSARTAN 160 MG TABLET PO SCH (09:33)
[2022-05-21] MEDS: amLODIPine BESYLATE 5 MG TABLET (FP) PO SCH (09:33)
[2022-05-21] MEDS: ASPIRIN 81 MG CHEWABLE TABLETS PO SCH (09:33)
[2022-05-21] MEDS: ISOSORBIDE MONONITRATE 60 MG TAB.SR.24H (FP) PO SCH (09:33)
[2022-05-21] MEDS: CLOPIDOGREL BISULFATE 75 MG TABLET (FP) PO SCH (09:33)
[2022-05-21] MEDS: ATORVASTATIN CA 80 MG TABLET (FP) PO SCH (21:12)
[2022-05-22] MEDS: INSULIN SLIDING SCALE (NOVOLOG) 1 VIAL SQ SCH ×4 (06:37→21:41)
[2022-05-22] MEDS: metFORMIN HCL 500 MG TABLET (FP) PO SCH ×2 (06:37→17:06)
[2022-05-22] MEDS: amLODIPine BESYLATE 5 MG TABLET (FP) PO SCH ×2 (08:09→11:45)
[2022-05-22] MEDS: VALSARTAN 160 MG TABLET PO SCH ×2 (08:09→11:45)
[2022-05-22] MEDS ORDERED: REGADENOSON 0.4 MG/5 ML PRE-FILLED SYRINGE IVPUSH ONE ×2 (09:31→09:45)
[2022-05-22] MEDS: ISOSORBIDE MONONITRATE 60 MG TAB.SR.24H (FP) PO SCH (11:47)
[2022-05-22] MEDS: CLOPIDOGREL BISULFATE 75 MG TABLET (FP) PO SCH (11:47)
[2022-05-22] MEDS: ASPIRIN 81 MG CHEWABLE TABLETS PO SCH (11:47)
[2022-05-22] MEDS: ATORVASTATIN CA 80 MG TABLET (FP) PO SCH (21:41)
[2022-05-23] MEDS: metFORMIN HCL 500 MG TABLET (FP) PO SCH ×2 (06:11→17:37)
[2022-05-23] MEDS: INSULIN SLIDING SCALE (NOVOLOG) 1 VIAL SQ SCH ×3 (06:11→17:39)
[2022-05-23] MEDS: CLOPIDOGREL BISULFATE 75 MG TABLET (FP) PO SCH (09:30)
[2022-05-23] MEDS: amLODIPine BESYLATE 5 MG TABLET (FP) PO SCH (09:30)
[2022-05-23] MEDS: ISOSORBIDE MONONITRATE 60 MG TAB.SR.24H (FP) PO SCH (09:31)
[2022-05-23] MEDS: VALSARTAN 160 MG TABLET PO SCH (09:31)
[2022-05-23] MEDS: ASPIRIN 81 MG CHEWABLE TABLETS PO SCH (09:31)
[2022-05-23 18:25] VITALS: BP 146/74; PULSE 78; TEMP 98.6
== END 2022-05-23 19:25 | disposition short-term general hospital (02) | DRG 303 ==
LOC: JER 12:17 → JERBED 12:56 → J4W 05-21 16:49 → OBSVTOIN 05-23 10:02
PROVIDERS: ADMIT Internal Medicine; ATTEND Internal Medicine
DX: I25.119 Atherosclerotic heart disease of native coronary artery with unspecified angina pectoris (principal); I24.8 Other forms of acute ischemic heart disease; I50.32 Chronic diastolic (congestive) heart failure; I25.10 Atherosclerotic heart disease of native coronary artery without angina pectoris; E11.9 Type 2 diabetes mellitus without complications; E78.5 Hyperlipidemia, unspecified; I25.2 Old myocardial infarction; I11.0 Hypertensive heart disease with heart failure; E66.9 Obesity, unspecified; Z68.37 Body mass index [BMI] 37.0-37.9, adult; Z95.1 Presence of aortocoronary bypass graft
CPT/HCPCS: 36415; 71045-TC-FY; 71275-TC; 74174-TC; 78452-TC; 80053; 80061; 82962; 83036; 83735; 83880; 84443; 84484; 85025; 85610; 85730; 87324; 87449; 93005; 93010; 93017; 93306-TC; 99285-25; A9502; C9803-CS; G0378; J2785; Q9967; U0003; U0005

== ENCOUNTER 2022-06-06 14:13 | Observation (INO) | payer OTHER ==
[2022-06-06 14:18] VITALS: BMI 34.3
[2022-06-06] MEDS ORDERED: FUROSEMIDE 20 MG TABLET (FP) PO ONE (16:22)
[2022-06-06] MEDS ORDERED: amLODIPine BESYLATE 10 MG TABLET (FP) PO ONE (16:22)
[2022-06-06] MEDS ORDERED: amLODIPine BESYLATE 10 MG TABLET (FP) ONE (16:27)
[2022-06-06] MEDS ORDERED: FUROSEMIDE 20 MG TABLET (FP) ONE (16:27)
[2022-06-06 17:55] LABS: BASO % 0.4 % (0-2.0); EOS % 1.8 % (0-4.5); HEMATOCRIT 38.8 % (32.4-45.2); HEMOGLOBIN 13.4 GM/dL (10.7-15.3); LYMPH % 31.4 % (8-40); MCH 29.3 pg (25.7-33.7); MCHC 34.5 g/dl (32.0-36.0); MEAN CELL VOLUME 85.1 fl (80-96); MEAN PLT VOLUME 8.1 fl (7.5-11.1); MONO % 6.6 % (3.8-10.2); NEUT % 59.8 % (42.8-82.8); PLATELET COUNT 223 10^3/uL (134-434); RBC 4.55 M/mm3 (3.60-5.2); RDW 13.3 % (11.6-15.6); WHITE BLOOD COUNT 6.8 K/mm3 (4.0-10.0)
[2022-06-06 18:12] LABS: ALBUMIN 4.2 g/dl (3.4-5.0); BLOOD UREA NITROGEN 11.2 mg/dL (7-18)
[2022-06-06 18:15] LABS: CREATININE 0.8 mg/dL (0.55-1.3)
[2022-06-06 18:16] LABS: BILIRUBIN,TOTAL 0.5 mg/dL (0.2-1)
[2022-06-06] MEDS ORDERED: LABETALOL HCL 5 MG/1 ML (100MG/20 ML VIAL) IVPUSH ONE (21:08)
[2022-06-06] MEDS ORDERED: ACETAMINOPHEN 1000 MG/100 ML BAG IVPB ONE (21:08)
[2022-06-06] MEDS ORDERED: VALSARTAN 160 MG TABLET PO ONE (22:43)
[2022-06-06] MEDS ORDERED: VALSARTAN 80 MG TABLET ONE (23:13)
[2022-06-06] MEDS ORDERED: ACETAMINOPHEN INJECTION 100 ML IVPB ONE (23:13)
[2022-06-07] MEDS ORDERED: SPIRONOLACTONE 25 MG TABLET ONE ×2 (06:36→10:13)
[2022-06-07] MEDS ORDERED: ISOSORBIDE MONONITRATE 30 MG TAB.SR.24H (FP) PO ONE ×3 (06:36→23:07)
[2022-06-07] MEDS ORDERED: FUROSEMIDE 20 MG TABLET (FP) ONE ×2 (06:36→14:05)
[2022-06-07] MEDS: FUROSEMIDE 20 MG TABLET (FP) PO SCH ×2 (06:42→15:01)
[2022-06-07] MEDS: SPIRONOLACTONE 25 MG TABLET PO SCH ×2 (06:42→10:21)
[2022-06-07] MEDS: ISOSORBIDE MONONITRATE 30 MG TAB.SR.24H (FP) PO SCH ×3 (06:42→23:13)
[2022-06-07] MEDS ORDERED: INSULIN SLIDING SCALE (NOVOLOG) 1 VIAL SQ SCH (07:00)
[2022-06-07] MEDS: INSULIN SLIDING SCALE (NOVOLOG) 1 VIAL SQ SCH ×4 (08:10→23:13)
[2022-06-07] MEDS: EZETIMIBE 10 MG TABLET (FP) PO SCH ×3 (08:21→10:26)
[2022-06-07 09:35] LABS: BASO % 0.4 % (0-2.0); EOS % 1.9 % (0-4.5); HEMATOCRIT 36.5 % (32.4-45.2); HEMOGLOBIN 12.7 GM/dL (10.7-15.3); LYMPH % 25.8 % (8-40); MCH 29.6 pg (25.7-33.7); MCHC 34.8 g/dl (32.0-36.0); MONO % 5.5 % (3.8-10.2); NEUT % 66.4 % (42.8-82.8); PLATELET COUNT 231 10^3/uL (134-434); RDW 13.4 % (11.6-15.6); WHITE BLOOD COUNT 5.5 K/mm3 (4.0-10.0)
[2022-06-07 10:09] LABS: BLOOD UREA NITROGEN 11.4 mg/dL (7-18); CALCIUM 9.4 mg/dL (8.5-10.1)
[2022-06-07 10:12] LABS: PHOSPHOROUS 3.4 mg/dL (2.5-4.9)
[2022-06-07] MEDS ORDERED: ASPIRIN 81 MG CHEWABLE TABLETS ONE (10:12)
[2022-06-07] MEDS ORDERED: amLODIPine BESYLATE 10 MG TABLET (FP) ONE (10:12)
[2022-06-07] MEDS ORDERED: CLOPIDOGREL BISULFATE 75 MG TABLET (FP) ONE (10:12)
[2022-06-07 10:13] LABS: CREATININE 0.9 mg/dL (0.55-1.3)
[2022-06-07] MEDS ORDERED: ENOXAPARIN NA (PORCINE) 40 MG/0.4 ML DISP.SYRIN SQ ONE (10:13)
[2022-06-07] MEDS: amLODIPine BESYLATE 10 MG TABLET (FP) PO SCH (10:22)
[2022-06-07] MEDS: ASPIRIN 81 MG CHEWABLE TABLETS PO SCH (10:22)
[2022-06-07] MEDS: ENOXAPARIN NA (PORCINE) 40 MG/0.4 ML DISP.SYRIN SQ SCH (10:22)
[2022-06-07] MEDS: VALSARTAN 160 MG TABLET PO SCH (10:22)
[2022-06-07] MEDS: CLOPIDOGREL BISULFATE 75 MG TABLET (FP) PO SCH (10:22)
[2022-06-07] MEDS ORDERED: POTASSIUM CHLORIDE TABS 20 MEQ TABLET.ER (FP) PO ONE ×2 (14:00→14:04)
[2022-06-07 14:51] LABS: EPI CELLS 11 /uL (0-25.1); HYALINE CASTS 5 /uL (0-3.1); PH,URINE 6.5 (5.0-8.0); URINE APPEARANCE CLOUDY; URINE BACTERIA >9,000 /uL (0-1359); URINE BILIRUBIN NEGATIVE (NEGATIVE); URINE COLOR YELLOW; URINE GLUCOSE (UA) 3+ (NEGATIVE); URINE KETONE NEGATIVE (NEGATIVE); URINE LEUK ESTERASE 2+ (NEGATIVE); URINE NITRITE POSITIVE (NEGATIVE); URINE PROTEIN TRACE (NEGATIVE); URINE RBC 4 /uL (0-23.9); URINE UROBILINOGEN 0.2 mg/dL (0.2-1.0); URINE WBC 378 /uL (0-25.8)
[2022-06-07] MEDS ORDERED: ROSUVASTATIN CA 20 MG TABLET PO SCH (22:00)
[2022-06-07] MEDS ORDERED: ATORVASTATIN CA 80 MG TABLET (FP) PO SCH (22:00)
[2022-06-07] MEDS ORDERED: ROSUVASTATIN CA 20 MG TABLET ONE (23:08)
[2022-06-08] MEDS ORDERED: FUROSEMIDE 20 MG TABLET (FP) ONE (06:19)
[2022-06-08] MEDS ORDERED: ISOSORBIDE MONONITRATE 30 MG TAB.SR.24H (FP) PO ONE (06:20)
[2022-06-08] MEDS: FUROSEMIDE 20 MG TABLET (FP) PO SCH (06:24)
[2022-06-08] MEDS: ISOSORBIDE MONONITRATE 30 MG TAB.SR.24H (FP) PO SCH (06:24)
[2022-06-08 06:31] VITALS: TEMP 98
[2022-06-08] MEDS ORDERED: INSULIN (NOVOLOG) ASPART 100 UNITS/ML 10ML VIAL ONE (08:38)
[2022-06-08] MEDS: INSULIN SLIDING SCALE (NOVOLOG) 1 VIAL SQ SCH (08:40)
[2022-06-08] MEDS ORDERED: amLODIPine BESYLATE 10 MG TABLET (FP) ONE (09:53)
[2022-06-08] MEDS ORDERED: SPIRONOLACTONE 25 MG TABLET ONE (09:54)
[2022-06-08] MEDS ORDERED: VALSARTAN 80 MG TABLET ONE (09:54)
[2022-06-08] MEDS ORDERED: CLOPIDOGREL BISULFATE 75 MG TABLET (FP) ONE (09:54)
[2022-06-08] MEDS ORDERED: ASPIRIN 81 MG CHEWABLE TABLETS ONE (09:54)
[2022-06-08] MEDS ORDERED: ENOXAPARIN NA (PORCINE) 40 MG/0.4 ML DISP.SYRIN SQ ONE (09:55)
[2022-06-08] MEDS: VALSARTAN 160 MG TABLET PO SCH (10:04)
[2022-06-08] MEDS: amLODIPine BESYLATE 10 MG TABLET (FP) PO SCH (10:04)
[2022-06-08] MEDS: CLOPIDOGREL BISULFATE 75 MG TABLET (FP) PO SCH (10:04)
[2022-06-08] MEDS: SPIRONOLACTONE 25 MG TABLET PO SCH (10:04)
[2022-06-08] MEDS: EZETIMIBE 10 MG TABLET (FP) PO SCH (10:04)
[2022-06-08] MEDS: ASPIRIN 81 MG CHEWABLE TABLETS PO SCH (10:04)
[2022-06-08] MEDS: ENOXAPARIN NA (PORCINE) 40 MG/0.4 ML DISP.SYRIN SQ SCH (10:04)
[2022-06-08 10:05] VITALS: BP 168/78; PULSE 69
== END 2022-06-08 10:42 | disposition home or self-care (01) ==
LOC: JER 14:13 → INTOOBSV 21:15 → JERBED 21:15
PROVIDERS: ADMIT Hospitalist
PROC: 3E023GC Introduction of Other Therapeutic Substance into Muscle, Percutaneous Approach (ICD-10-PCS; principal; 2022-06-06)
PROC: 3E013VG Introduction of Insulin into Subcutaneous Tissue, Percutaneous Approach (ICD-10-PCS; 2022-06-06)
DX: R07.9 Chest pain, unspecified (principal); I25.10 Atherosclerotic heart disease of native coronary artery without angina pectoris; I11.9 Hypertensive heart disease without heart failure; Z95.1 Presence of aortocoronary bypass graft; E11.9 Type 2 diabetes mellitus without complications; E78.5 Hyperlipidemia, unspecified; Z87.891 Personal history of nicotine dependence; I16.0 Hypertensive urgency
CPT/HCPCS: 36415; 71045-TC-FY; 80048; 80053; 81003; 82962; 83735; 84100; 84484; 85025; 93005; 93010; 96372; 96374; 99285-25; C9803-CS; G0378; U0003; U0005

== ENCOUNTER 2022-09-28 15:08 | Inpatient (IN) | payer OTHER ==
[2022-09-28] MEDS ORDERED: ASPIRIN 81 MG CHEWABLE TABLETS PO ONE (17:08)
[2022-09-28] MEDS ORDERED: amLODIPine BESYLATE 10 MG TABLET (FP) PO ONE (17:08)
[2022-09-28 18:11] LABS: BASO % 0.8 % (0-2.0); HEMATOCRIT 40.3 % (32.4-45.2); HEMOGLOBIN 13.9 GM/dL (10.7-15.3); LYMPH % 23.1 % (8-40); MCH 30.1 pg (25.7-33.7); MCHC 34.4 g/dl (32.0-36.0); MEAN CELL VOLUME 87.3 fl (80-96); MEAN PLT VOLUME 8.5 fl (7.5-11.1); MONO % 8.1 % (3.8-10.2); PLATELET COUNT 241 10^3/uL (134-434); RBC 4.61 M/mm3 (3.60-5.2); RDW 13.5 % (11.6-15.6); WHITE BLOOD COUNT 6.7 K/mm3 (4.0-10.0)
[2022-09-28 18:18] LABS: INR 0.96 (0.83-1.09)
[2022-09-28 18:21] LABS: ACTIVATED PTT 29.1 SECONDS (25.2-36.5)
[2022-09-28 18:35] LABS: CHLORIDE 98 mmol/L (98-107); SODIUM 137 mmol/L (136-145)
[2022-09-28 18:38] LABS: CALCIUM 10.3 mg/dL (8.5-10.1)
[2022-09-28 18:39] LABS: ALBUMIN 4.2 g/dl (3.4-5.0); ANION GAP 12 MMOL/L (8-16); BLOOD UREA NITROGEN 13.1 mg/dL (7-18); CO2 27 mmol/L (21-32); MAGNESIUM 2.3 mg/dL (1.8-2.4)
[2022-09-28 18:42] LABS: CREATININE 1.3 mg/dL (0.55-1.3); SGOT/AST 17 U/L (15-37); SGPT/ALT 20 U/L (13-61); TOT PROT 7.4 g/dl (6.4-8.2)
[2022-09-28 18:44] LABS: BILIRUBIN,TOTAL 0.4 mg/dL (0.2-1)
[2022-09-28 18:45] LABS: ALK PHOS 112 U/L (45-117)
[2022-09-28 18:58] LABS: GLUCOSE,RANDOM 483 mg/dL (74-106)
[2022-09-28] MEDS ORDERED: ASPIRIN 81 MG CHEWABLE TABLETS ONE (19:30)
[2022-09-28] MEDS ORDERED: amLODIPine BESYLATE 10 MG TABLET (FP) ONE (19:30)
[2022-09-28] MEDS ORDERED: VALSARTAN 160 MG TABLET PO ONE (19:36)
[2022-09-28] MEDS ORDERED: MAGNESIUM SULF 50% (8.12 MEQ/2 ML-1 GM VIAL) IVPB ONE (19:36)
[2022-09-28] MEDS ORDERED: INSULIN REGULAR HUMAN 100 UNITS/ML *VIAL SQ ONE (19:36)
[2022-09-28] MEDS ORDERED: VALSARTAN 80 MG TABLET ONE (19:45)
[2022-09-28] MEDS ORDERED: MAGNESIUM SULFATE IN WATER 2 GM/50 ML IVPB IVPB ONE (19:46)
[2022-09-28] MEDS ORDERED: METOPROLOL TARTRATE 5 MG/5 ML VIAL IVPUSH ONE ×2 (21:16→21:41)
[2022-09-28] MEDS ORDERED: METOPROLOL TARTRATE 5 MG/5 ML VIAL ONE (21:24)
[2022-09-28] MEDS ORDERED: ATORVASTATIN CA 80 MG TABLET (FP) ONE (21:49)
[2022-09-28] MEDS ORDERED: FUROSEMIDE 20 MG TABLET (FP) ONE (21:50)
[2022-09-28] MEDS ORDERED: GABAPENTIN 300 MG CAPSULE ONE (21:50)
[2022-09-28] MEDS: INSULIN SLIDING SCALE (NOVOLOG) 1 VIAL SQ SCH (22:05)
[2022-09-28] MEDS: ATORVASTATIN CA 80 MG TABLET (FP) PO SCH (22:05)
[2022-09-28] MEDS: GABAPENTIN 300 MG CAPSULE PO SCH (22:05)
[2022-09-29 00:07] VITALS: BMI 31.6
[2022-09-29] MEDS: ENOXAPARIN NA (PORCINE) 100 MG/1 ML DISP.SYRIN SQ SCH ×2 (01:00→11:19)
[2022-09-29] MEDS: FUROSEMIDE 20 MG TABLET (FP) PO SCH ×2 (06:34→14:36)
[2022-09-29] MEDS: GABAPENTIN 300 MG CAPSULE PO SCH ×2 (06:34→14:36)
[2022-09-29] MEDS: INSULIN SLIDING SCALE (NOVOLOG) 1 VIAL SQ SCH ×4 (06:37→21:31)
[2022-09-29 07:52] LABS: BASO % 0.5 % (0-2.0); HEMATOCRIT 37.6 % (32.4-45.2); HEMOGLOBIN 13.4 GM/dL (10.7-15.3); LYMPH % 32.5 % (8-40); MCH 30.7 pg (25.7-33.7); MCHC 35.7 g/dl (32.0-36.0); MEAN CELL VOLUME 86.1 fl (80-96); MEAN PLT VOLUME 8.2 fl (7.5-11.1); MONO % 8.4 % (3.8-10.2); NEUT % 55.6 % (42.8-82.8); PLATELET COUNT 220 10^3/uL (134-434); RBC 4.37 M/mm3 (3.60-5.2); RDW 13.4 % (11.6-15.6); WHITE BLOOD COUNT 5.7 K/mm3 (4.0-10.0)
[2022-09-29 08:14] LABS: BLOOD UREA NITROGEN 13.8 mg/dL (7-18)
[2022-09-29 08:15] LABS: ALBUMIN 3.6 g/dl (3.4-5.0); CALCIUM 9.6 mg/dL (8.5-10.1); MAGNESIUM 2.3 mg/dL (1.8-2.4)
[2022-09-29 08:17] LABS: CREATININE 1.2 mg/dL (0.55-1.3); PHOSPHOROUS 2.8 mg/dL (2.5-4.9)
[2022-09-29 08:19] LABS: BILIRUBIN,TOTAL 0.6 mg/dL (0.2-1); TOT PROT 6.2 g/dl (6.4-8.2)
[2022-09-29] MEDS ORDERED: ENOXAPARIN NA (PORCINE) 40 MG/0.4 ML DISP.SYRIN SQ SCH (10:00)
[2022-09-29] MEDS: VALSARTAN 160 MG TABLET PO SCH (10:16)
[2022-09-29] MEDS: CLOPIDOGREL BISULFATE 75 MG TABLET (FP) PO SCH (10:17)
[2022-09-29] MEDS: amLODIPine BESYLATE 10 MG TABLET (FP) PO SCH (10:17)
[2022-09-29] MEDS: ASPIRIN COATED 81 MG TABLET.EC PO SCH (10:17)
[2022-09-29] MEDS: ISOSORBIDE MONONITRATE 60 MG TAB.SR.24H (FP) PO SCH (10:17)
[2022-09-29] MEDS ORDERED: POTASSIUM CHLORIDE TABS 20 MEQ TABLET.ER (FP) PO ONE (14:48)
[2022-09-29] MEDS ORDERED: LORazepam 1 MG TABLET PO ONE (15:44)
[2022-09-29] MEDS: INSULIN (NOVOLOG) ASPART 100 UNITS/ML 10ML VIAL SQ SCH (17:39)
[2022-09-29] MEDS ORDERED: ACETAMINOPHEN 500 MG TABLET (FP) PO ONE (18:18)
[2022-09-29] MEDS: BENZTROPINE MESYLATE 0.5 MG TABLET (FP) PO SCH (21:30)
[2022-09-29] MEDS: ATORVASTATIN CA 80 MG TABLET (FP) PO SCH (21:30)
[2022-09-30] MEDS: INSULIN SLIDING SCALE (NOVOLOG) 1 VIAL SQ SCH ×4 (06:30→21:50)
[2022-09-30] MEDS: INSULIN (NOVOLOG) ASPART 100 UNITS/ML 10ML VIAL SQ SCH ×3 (06:31→18:22)
[2022-09-30] MEDS: FUROSEMIDE 20 MG TABLET (FP) PO SCH ×2 (06:31→13:48)
[2022-09-30 08:24] LABS: HEMATOCRIT 37.1 % (32.4-45.2); HEMOGLOBIN 12.8 GM/dL (10.7-15.3); MCH 30.3 pg (25.7-33.7); MCHC 34.4 g/dl (32.0-36.0); MEAN PLT VOLUME 8.3 fl (7.5-11.1); PLATELET COUNT 207 10^3/uL (134-434); RBC 4.21 M/mm3 (3.60-5.2); RDW 13.4 % (11.6-15.6); WHITE BLOOD COUNT 4.6 K/mm3 (4.0-10.0)
[2022-09-30 08:51] LABS: CREATININE 1.6 mg/dL (0.55-1.3)
[2022-09-30 08:52] LABS: ALBUMIN 3.1 g/dl (3.4-5.0); BLOOD UREA NITROGEN 22.2 mg/dL (7-18)
[2022-09-30 08:53] LABS: CALCIUM 9.1 mg/dL (8.5-10.1); TOT PROT 5.7 g/dl (6.4-8.2)
[2022-09-30 08:55] LABS: BILIRUBIN,TOTAL 0.6 mg/dL (0.2-1)
[2022-09-30] MEDS: VALSARTAN 160 MG TABLET PO SCH ×2 (10:47→21:48)
[2022-09-30] MEDS: ISOSORBIDE MONONITRATE 60 MG TAB.SR.24H (FP) PO SCH (10:47)
[2022-09-30] MEDS: CLOPIDOGREL BISULFATE 75 MG TABLET (FP) PO SCH (10:48)
[2022-09-30] MEDS: BENZTROPINE MESYLATE 0.5 MG TABLET (FP) PO SCH ×2 (10:48→21:48)
[2022-09-30] MEDS: ENOXAPARIN NA (PORCINE) 40 MG/0.4 ML DISP.SYRIN SQ SCH (10:48)
[2022-09-30] MEDS: amLODIPine BESYLATE 10 MG TABLET (FP) PO SCH (10:48)
[2022-09-30] MEDS: ASPIRIN COATED 81 MG TABLET.EC PO SCH (10:48)
[2022-09-30] MEDS: ACETAMINOPHEN 325 MG TABLET (FP) PO PRN (10:54)
[2022-09-30] MEDS ORDERED: SODIUM CHLORIDE 0.45% 1,000 ML IV SCH (11:00)
[2022-09-30] MEDS ORDERED: LORazepam 1 MG TABLET PO ONE (16:45)
[2022-09-30] MEDS: ATORVASTATIN CA 80 MG TABLET (FP) PO SCH (21:48)
[2022-09-30] MEDS: INSULIN (LEVEMIR) 100 UNITS/ML UNITS SQ SCH (21:50)
[2022-10-01] MEDS: INSULIN SLIDING SCALE (NOVOLOG) 1 VIAL SQ SCH ×4 (06:41→21:34)
[2022-10-01] MEDS: INSULIN (LEVEMIR) 100 UNITS/ML UNITS SQ SCH ×2 (06:41→21:34)
[2022-10-01] MEDS: INSULIN (NOVOLOG) ASPART 100 UNITS/ML 10ML VIAL SQ SCH ×3 (06:41→17:22)
[2022-10-01] MEDS: FUROSEMIDE 20 MG TABLET (FP) PO SCH ×2 (06:41→13:52)
[2022-10-01 08:35] LABS: HEMATOCRIT 36.6 % (32.4-45.2); HEMOGLOBIN 12.9 GM/dL (10.7-15.3); MCH 30.6 pg (25.7-33.7); MCHC 35.3 g/dl (32.0-36.0); MEAN CELL VOLUME 86.6 fl (80-96); MEAN PLT VOLUME 7.9 fl (7.5-11.1); PLATELET COUNT 206 10^3/uL (134-434); RBC 4.23 M/mm3 (3.60-5.2); RDW 13.3 % (11.6-15.6); WHITE BLOOD COUNT 5.4 K/mm3 (4.0-10.0)
[2022-10-01 08:58] LABS: ALBUMIN 3.2 g/dl (3.4-5.0); BLOOD UREA NITROGEN 22.4 mg/dL (7-18); CALCIUM 9.4 mg/dL (8.5-10.1)
[2022-10-01 09:01] LABS: CREATININE 1.1 mg/dL (0.55-1.3)
[2022-10-01 09:03] LABS: BILIRUBIN,TOTAL 0.6 mg/dL (0.2-1)
[2022-10-01] MEDS: ASPIRIN COATED 81 MG TABLET.EC PO SCH (10:32)
[2022-10-01] MEDS: amLODIPine BESYLATE 10 MG TABLET (FP) PO SCH (10:33)
[2022-10-01] MEDS: ISOSORBIDE MONONITRATE 60 MG TAB.SR.24H (FP) PO SCH (10:34)
[2022-10-01] MEDS: CLOPIDOGREL BISULFATE 75 MG TABLET (FP) PO SCH (10:34)
[2022-10-01] MEDS: VALSARTAN 160 MG TABLET PO SCH ×2 (10:34→21:29)
[2022-10-01] MEDS: BENZTROPINE MESYLATE 0.5 MG TABLET (FP) PO SCH ×2 (10:34→21:29)
[2022-10-01] MEDS: ENOXAPARIN NA (PORCINE) 40 MG/0.4 ML DISP.SYRIN SQ SCH (11:13)
[2022-10-01] MEDS ORDERED: POTASSIUM CHLORIDE TABS 10 MEQ TABLET.ER (FP) PO ONE (17:18)
[2022-10-01] MEDS: ATORVASTATIN CA 80 MG TABLET (FP) PO SCH (21:29)
[2022-10-02] MEDS: FUROSEMIDE 20 MG TABLET (FP) PO SCH ×2 (06:30→13:37)
[2022-10-02] MEDS: INSULIN SLIDING SCALE (NOVOLOG) 1 VIAL SQ SCH ×4 (06:31→21:22)
[2022-10-02] MEDS: INSULIN (LEVEMIR) 100 UNITS/ML UNITS SQ SCH ×2 (06:31→21:22)
[2022-10-02] MEDS: INSULIN (NOVOLOG) ASPART 100 UNITS/ML 10ML VIAL SQ SCH ×3 (06:31→17:19)
[2022-10-02] MEDS: ACETAMINOPHEN 325 MG TABLET (FP) PO PRN (07:53)
[2022-10-02] MEDS: ISOSORBIDE MONONITRATE 60 MG TAB.SR.24H (FP) PO SCH (09:24)
[2022-10-02] MEDS: CLOPIDOGREL BISULFATE 75 MG TABLET (FP) PO SCH (09:26)
[2022-10-02] MEDS: VALSARTAN 160 MG TABLET PO SCH ×2 (09:26→21:17)
[2022-10-02] MEDS: amLODIPine BESYLATE 10 MG TABLET (FP) PO SCH (09:26)
[2022-10-02] MEDS: ASPIRIN COATED 81 MG TABLET.EC PO SCH (09:26)
[2022-10-02] MEDS: ENOXAPARIN NA (PORCINE) 40 MG/0.4 ML DISP.SYRIN SQ SCH (09:27)
[2022-10-02] MEDS: BENZTROPINE MESYLATE 0.5 MG TABLET (FP) PO SCH ×2 (09:27→21:17)
[2022-10-02] MEDS ORDERED: POTASSIUM CHLORIDE TABS 10 MEQ TABLET.ER (FP) PO ONE (16:18)
[2022-10-02] MEDS: ATORVASTATIN CA 80 MG TABLET (FP) PO SCH (21:17)
[2022-10-03] MEDS: FUROSEMIDE 20 MG TABLET (FP) PO SCH ×2 (06:23→13:35)
[2022-10-03] MEDS: INSULIN SLIDING SCALE (NOVOLOG) 1 VIAL SQ SCH ×4 (06:24→22:26)
[2022-10-03] MEDS: INSULIN (NOVOLOG) ASPART 100 UNITS/ML 10ML VIAL SQ SCH ×3 (06:24→16:54)
[2022-10-03] MEDS: INSULIN (LEVEMIR) 100 UNITS/ML UNITS SQ SCH ×2 (06:26→22:25)
[2022-10-03 08:02] LABS: HEMATOCRIT 38.3 % (32.4-45.2); HEMOGLOBIN 12.9 GM/dL (10.7-15.3); MCH 29.9 pg (25.7-33.7); MCHC 33.8 g/dl (32.0-36.0); MEAN CELL VOLUME 88.6 fl (80-96); MEAN PLT VOLUME 8.8 fl (7.5-11.1); PLATELET COUNT 144 10^3/uL (134-434); RBC 4.32 M/mm3 (3.60-5.2); RDW 13.2 % (11.6-15.6); WHITE BLOOD COUNT 5.6 K/mm3 (4.0-10.0)
[2022-10-03 08:33] LABS: ALBUMIN 3.3 g/dl (3.4-5.0); BLOOD UREA NITROGEN 21.3 mg/dL (7-18); CALCIUM 9.4 mg/dL (8.5-10.1)
[2022-10-03 08:36] LABS: CREATININE 0.9 mg/dL (0.55-1.3)
[2022-10-03 08:37] LABS: BILIRUBIN,TOTAL 0.6 mg/dL (0.2-1)
[2022-10-03] MEDS: CLOPIDOGREL BISULFATE 75 MG TABLET (FP) PO SCH (09:12)
[2022-10-03] MEDS: amLODIPine BESYLATE 10 MG TABLET (FP) PO SCH (09:13)
[2022-10-03] MEDS: VALSARTAN 160 MG TABLET PO SCH ×2 (09:13→22:26)
[2022-10-03] MEDS: ASPIRIN COATED 81 MG TABLET.EC PO SCH (09:13)
[2022-10-03] MEDS: ISOSORBIDE MONONITRATE 60 MG TAB.SR.24H (FP) PO SCH (09:13)
[2022-10-03] MEDS: ACETAMINOPHEN 325 MG TABLET (FP) PO PRN (09:14)
[2022-10-03] MEDS: BENZTROPINE MESYLATE 0.5 MG TABLET (FP) PO SCH (09:14)
[2022-10-03] MEDS: ENOXAPARIN NA (PORCINE) 40 MG/0.4 ML DISP.SYRIN SQ SCH (09:15)
[2022-10-03] MEDS: clonazePAM 0.5 MG TABLET PO SCH ×2 (14:33→22:27)
[2022-10-03 14:50] LABS: OPIATES, URI NEGATIVE (NEGATIVE); PHENCYCLIDINE,URINE NEGATIVE (NEGATIVE)
[2022-10-03 14:51] LABS: METHADONE, UR NEGATIVE (NEGATIVE); URINE BENZODIAZEPINES NEGATIVE (NEGATIVE)
[2022-10-03 14:54] LABS: COCAINE, UR NEGATIVE (NEGATIVE); URINE AMPHETAMINES NEGATIVE (NEGATIVE); URINE BARBITURATES NEGATIVE (NEGATIVE)
[2022-10-03] MEDS ORDERED: HALOPERIDOL 1 MG TABLET PO PRN (20:35)
[2022-10-03] MEDS ORDERED: BENZTROPINE MESYLATE 0.5 MG TABLET (FP) PO SCH (22:00)
[2022-10-03] MEDS: ATORVASTATIN CA 80 MG TABLET (FP) PO SCH (22:26)
[2022-10-03] MEDS: HALOPERIDOL 0.5 MG TABLET PO SCH (23:28)
[2022-10-04] MEDS: INSULIN (LEVEMIR) 100 UNITS/ML UNITS SQ SCH ×2 (06:57→22:05)
[2022-10-04] MEDS: FUROSEMIDE 20 MG TABLET (FP) PO SCH ×2 (06:57→14:42)
[2022-10-04] MEDS: INSULIN SLIDING SCALE (NOVOLOG) 1 VIAL SQ SCH ×4 (06:58→22:04)
[2022-10-04] MEDS: INSULIN (NOVOLOG) ASPART 100 UNITS/ML 10ML VIAL SQ SCH ×3 (06:58→17:07)
[2022-10-04] MEDS: ACETAMINOPHEN 325 MG TABLET (FP) PO PRN (09:01)
[2022-10-04] MEDS: clonazePAM 0.5 MG TABLET PO SCH (09:01)
[2022-10-04] MEDS: HALOPERIDOL 0.5 MG TABLET PO SCH ×2 (09:01→21:09)
[2022-10-04] MEDS: VALSARTAN 160 MG TABLET PO SCH ×2 (09:01→21:09)
[2022-10-04] MEDS: ASPIRIN COATED 81 MG TABLET.EC PO SCH (09:18)
[2022-10-04] MEDS: CLOPIDOGREL BISULFATE 75 MG TABLET (FP) PO SCH (09:19)
[2022-10-04] MEDS: ISOSORBIDE MONONITRATE 60 MG TAB.SR.24H (FP) PO SCH (09:19)
[2022-10-04] MEDS: ENOXAPARIN NA (PORCINE) 40 MG/0.4 ML DISP.SYRIN SQ SCH (09:19)
[2022-10-04] MEDS: amLODIPine BESYLATE 10 MG TABLET (FP) PO SCH (09:19)
[2022-10-04] MEDS: oxyCODONE HCL 5 MG TABLET PO PRN (12:42)
[2022-10-04] MEDS: ATORVASTATIN CA 80 MG TABLET (FP) PO SCH (21:09)
[2022-10-04] MEDS: clonazePAM 0.25 MG ODT TABLETS SL SCH (21:42)
[2022-10-04] MEDS ORDERED: clonazePAM 0.5 MG TABLET PO SCH (22:00)
[2022-10-05] MEDS: FUROSEMIDE 20 MG TABLET (FP) PO SCH ×2 (05:43→14:05)
[2022-10-05] MEDS: clonazePAM 0.25 MG ODT TABLETS SL SCH ×3 (05:43→21:17)
[2022-10-05] MEDS: INSULIN (LEVEMIR) 100 UNITS/ML UNITS SQ SCH ×2 (06:29→21:17)
[2022-10-05] MEDS: INSULIN (NOVOLOG) ASPART 100 UNITS/ML 10ML VIAL SQ SCH ×3 (06:30→18:47)
[2022-10-05] MEDS: INSULIN SLIDING SCALE (NOVOLOG) 1 VIAL SQ SCH ×4 (06:30→21:24)
[2022-10-05] MEDS: VALSARTAN 160 MG TABLET PO SCH ×2 (09:54→21:17)
[2022-10-05] MEDS: ACETAMINOPHEN 325 MG TABLET (FP) PO PRN (09:54)
[2022-10-05] MEDS: amLODIPine BESYLATE 10 MG TABLET (FP) PO SCH (09:55)
[2022-10-05] MEDS: ENOXAPARIN NA (PORCINE) 40 MG/0.4 ML DISP.SYRIN SQ SCH (09:55)
[2022-10-05] MEDS: HALOPERIDOL 0.5 MG TABLET PO SCH ×3 (09:55→21:18)
[2022-10-05] MEDS: CLOPIDOGREL BISULFATE 75 MG TABLET (FP) PO SCH (09:55)
[2022-10-05] MEDS: ISOSORBIDE MONONITRATE 60 MG TAB.SR.24H (FP) PO SCH (09:55)
[2022-10-05] MEDS: ASPIRIN COATED 81 MG TABLET.EC PO SCH (09:55)
[2022-10-05] MEDS: oxyCODONE HCL 5 MG TABLET PO PRN (11:45)
[2022-10-05] MEDS ORDERED: HALOPERIDOL 0.5 MG TABLET PO SCH ×2 (12:32→12:45)
[2022-10-05] MEDS ORDERED: LORazepam 2 MG/ML SDV VIAL IVPUSH ONE (15:45)
[2022-10-05] MEDS ORDERED: CEFTRIAXONE 1 GM in DEXTROSE 5%-WATER - 50 ML IVPB SCH (16:00)
[2022-10-05] MEDS: ATORVASTATIN CA 80 MG TABLET (FP) PO SCH (21:17)
[2022-10-06] MEDS: FUROSEMIDE 20 MG TABLET (FP) PO SCH ×2 (05:28→13:49)
[2022-10-06] MEDS: clonazePAM 0.25 MG ODT TABLETS SL SCH ×3 (05:28→21:06)
[2022-10-06] MEDS: INSULIN SLIDING SCALE (NOVOLOG) 1 VIAL SQ SCH ×4 (06:03→21:13)
[2022-10-06] MEDS: INSULIN (NOVOLOG) ASPART 100 UNITS/ML 10ML VIAL SQ SCH ×3 (06:04→16:32)
[2022-10-06] MEDS: INSULIN (LEVEMIR) 100 UNITS/ML UNITS SQ SCH ×2 (06:04→21:06)
[2022-10-06 09:26] LABS: HEMATOCRIT 38.1 % (32.4-45.2); MCH 29.7 pg (25.7-33.7); MEAN CELL VOLUME 87.4 fl (80-96); MEAN PLT VOLUME 8.7 fl (7.5-11.1); PLATELET COUNT 251 10^3/uL (134-434); RBC 4.36 M/mm3 (3.60-5.2); RDW 13.6 % (11.6-15.6); WHITE BLOOD COUNT 5.7 K/mm3 (4.0-10.0)
[2022-10-06 09:50] LABS: CALCIUM 9.2 mg/dL (8.5-10.1)
[2022-10-06 09:51] LABS: ALBUMIN 3.4 g/dl (3.4-5.0); BLOOD UREA NITROGEN 23.5 mg/dL (7-18); MAGNESIUM 1.9 mg/dL (1.8-2.4)
[2022-10-06 09:52] LABS: BILIRUBIN,TOTAL 0.8 mg/dL (0.2-1); TOT PROT 6.2 g/dl (6.4-8.2)
[2022-10-06 09:53] LABS: PHOSPHOROUS 3.3 mg/dL (2.5-4.9)
[2022-10-06 09:54] LABS: CREATININE 0.9 mg/dL (0.55-1.3)
[2022-10-06] MEDS: VALSARTAN 160 MG TABLET PO SCH ×2 (10:34→21:05)
[2022-10-06] MEDS: ENOXAPARIN NA (PORCINE) 40 MG/0.4 ML DISP.SYRIN SQ SCH (10:34)
[2022-10-06] MEDS: ISOSORBIDE MONONITRATE 60 MG TAB.SR.24H (FP) PO SCH (10:34)
[2022-10-06] MEDS: amLODIPine BESYLATE 10 MG TABLET (FP) PO SCH (10:34)
[2022-10-06] MEDS: HALOPERIDOL 0.5 MG TABLET PO SCH ×2 (10:34→21:06)
[2022-10-06] MEDS: CLOPIDOGREL BISULFATE 75 MG TABLET (FP) PO SCH (10:34)
[2022-10-06] MEDS: ASPIRIN COATED 81 MG TABLET.EC PO SCH (10:34)
[2022-10-06] MEDS: ATORVASTATIN CA 80 MG TABLET (FP) PO SCH (21:06)
[2022-10-07] MEDS: clonazePAM 0.25 MG ODT TABLETS SL SCH ×3 (05:44→22:09)
[2022-10-07] MEDS: FUROSEMIDE 20 MG TABLET (FP) PO SCH ×2 (05:44→14:56)
[2022-10-07] MEDS: INSULIN (LEVEMIR) 100 UNITS/ML UNITS SQ SCH ×2 (06:21→22:27)
[2022-10-07] MEDS: INSULIN SLIDING SCALE (NOVOLOG) 1 VIAL SQ SCH ×4 (06:22→22:22)
[2022-10-07] MEDS: INSULIN (NOVOLOG) ASPART 100 UNITS/ML 10ML VIAL SQ SCH ×3 (06:22→17:07)
[2022-10-07] MEDS: VALSARTAN 160 MG TABLET PO SCH ×2 (09:28→22:09)
[2022-10-07] MEDS: amLODIPine BESYLATE 10 MG TABLET (FP) PO SCH (09:28)
[2022-10-07] MEDS: CLOPIDOGREL BISULFATE 75 MG TABLET (FP) PO SCH (09:28)
[2022-10-07] MEDS: ENOXAPARIN NA (PORCINE) 40 MG/0.4 ML DISP.SYRIN SQ SCH (09:29)
[2022-10-07] MEDS: ISOSORBIDE MONONITRATE 60 MG TAB.SR.24H (FP) PO SCH (09:29)
[2022-10-07] MEDS: ASPIRIN COATED 81 MG TABLET.EC PO SCH (09:29)
[2022-10-07] MEDS: HALOPERIDOL 0.5 MG TABLET PO SCH ×2 (11:40→22:09)
[2022-10-07] MEDS ORDERED: INSULIN (NOVOLOG) ASPART 100 UNITS/ML 10ML VIAL ONE ×2 (17:55→21:25)
[2022-10-07] MEDS: ATORVASTATIN CA 80 MG TABLET (FP) PO SCH (22:09)
[2022-10-08] MEDS: clonazePAM 0.25 MG ODT TABLETS SL SCH ×3 (05:37→22:17)
[2022-10-08] MEDS: FUROSEMIDE 20 MG TABLET (FP) PO SCH ×2 (05:37→13:23)
[2022-10-08] MEDS: INSULIN (LEVEMIR) 100 UNITS/ML UNITS SQ SCH ×2 (06:50→22:26)
[2022-10-08] MEDS: INSULIN SLIDING SCALE (NOVOLOG) 1 VIAL SQ SCH ×4 (06:57→22:27)
[2022-10-08] MEDS ORDERED: INSULIN (NOVOLOG) ASPART 100 UNITS/ML 10ML VIAL ONE ×2 (07:28→22:21)
[2022-10-08] MEDS: INSULIN (NOVOLOG) ASPART 100 UNITS/ML 10ML VIAL SQ SCH ×3 (07:33→17:00)
[2022-10-08] MEDS: CLOPIDOGREL BISULFATE 75 MG TABLET (FP) PO SCH (09:53)
[2022-10-08] MEDS: ISOSORBIDE MONONITRATE 60 MG TAB.SR.24H (FP) PO SCH (09:53)
[2022-10-08] MEDS: amLODIPine BESYLATE 10 MG TABLET (FP) PO SCH (09:53)
[2022-10-08] MEDS: HALOPERIDOL 0.5 MG TABLET PO SCH ×2 (09:53→22:17)
[2022-10-08] MEDS: VALSARTAN 160 MG TABLET PO SCH ×2 (09:53→22:17)
[2022-10-08] MEDS: ENOXAPARIN NA (PORCINE) 40 MG/0.4 ML DISP.SYRIN SQ SCH (09:54)
[2022-10-08] MEDS: ASPIRIN COATED 81 MG TABLET.EC PO SCH (09:54)
[2022-10-08 09:57] LABS: HEMATOCRIT 38.9 % (32.4-45.2); HEMOGLOBIN 13.8 GM/dL (10.7-15.3); MCH 30.8 pg (25.7-33.7); MCHC 35.5 g/dl (32.0-36.0); MEAN CELL VOLUME 86.8 fl (80-96); MEAN PLT VOLUME 8.2 fl (7.5-11.1); PLATELET COUNT 255 10^3/uL (134-434); RBC 4.49 M/mm3 (3.60-5.2); RDW 13.7 % (11.6-15.6); WHITE BLOOD COUNT 5.1 K/mm3 (4.0-10.0)
[2022-10-08 11:06] LABS: CALCIUM 9.5 mg/dL (8.5-10.1)
[2022-10-08 11:07] LABS: ALBUMIN 3.6 g/dl (3.4-5.0); BLOOD UREA NITROGEN 16.2 mg/dL (7-18); MAGNESIUM 1.9 mg/dL (1.8-2.4)
[2022-10-08 11:10] LABS: CREATININE 0.9 mg/dL (0.55-1.3)
[2022-10-08 11:11] LABS: BILIRUBIN,TOTAL 0.5 mg/dL (0.2-1); TOT PROT 6.7 g/dl (6.4-8.2)
[2022-10-08] MEDS: ATORVASTATIN CA 80 MG TABLET (FP) PO SCH (22:17)
[2022-10-09] MEDS: INSULIN SLIDING SCALE (NOVOLOG) 1 VIAL SQ SCH ×4 (06:24→21:31)
[2022-10-09] MEDS: INSULIN (NOVOLOG) ASPART 100 UNITS/ML 10ML VIAL SQ SCH ×3 (06:24→17:08)
[2022-10-09] MEDS: FUROSEMIDE 20 MG TABLET (FP) PO SCH ×2 (06:43→14:27)
[2022-10-09] MEDS: clonazePAM 0.25 MG ODT TABLETS SL SCH ×3 (06:43→21:29)
[2022-10-09] MEDS: INSULIN (LEVEMIR) 100 UNITS/ML UNITS SQ SCH ×2 (06:44→21:31)
[2022-10-09] MEDS: VALSARTAN 160 MG TABLET PO SCH ×2 (09:15→21:30)
[2022-10-09] MEDS: ISOSORBIDE MONONITRATE 60 MG TAB.SR.24H (FP) PO SCH (09:15)
[2022-10-09] MEDS: CLOPIDOGREL BISULFATE 75 MG TABLET (FP) PO SCH (09:15)
[2022-10-09] MEDS: amLODIPine BESYLATE 10 MG TABLET (FP) PO SCH (09:15)
[2022-10-09] MEDS: ASPIRIN COATED 81 MG TABLET.EC PO SCH (09:15)
[2022-10-09] MEDS: HALOPERIDOL 0.5 MG TABLET PO SCH ×2 (10:02→21:32)
[2022-10-09] MEDS: ENOXAPARIN NA (PORCINE) 40 MG/0.4 ML DISP.SYRIN SQ SCH (11:27)
[2022-10-09] MEDS ORDERED: INSULIN (NOVOLOG) ASPART 100 UNITS/ML 10ML VIAL ONE (21:24)
[2022-10-09] MEDS: ACETAMINOPHEN 325 MG TABLET (FP) PO PRN (21:30)
[2022-10-09] MEDS: ATORVASTATIN CA 80 MG TABLET (FP) PO SCH (21:30)
[2022-10-10] MEDS: INSULIN (LEVEMIR) 100 UNITS/ML UNITS SQ SCH (06:33)
[2022-10-10] MEDS: clonazePAM 0.25 MG ODT TABLETS SL SCH ×2 (06:33→13:15)
[2022-10-10] MEDS: FUROSEMIDE 20 MG TABLET (FP) PO SCH ×2 (06:33→13:15)
[2022-10-10] MEDS: INSULIN SLIDING SCALE (NOVOLOG) 1 VIAL SQ SCH ×2 (06:48→12:08)
[2022-10-10] MEDS: INSULIN (NOVOLOG) ASPART 100 UNITS/ML 10ML VIAL SQ SCH ×2 (06:49→12:08)
[2022-10-10] MEDS ORDERED: INSULIN (NOVOLOG) ASPART 100 UNITS/ML 10ML VIAL ONE (06:53)
[2022-10-10 08:01] VITALS: RESP 18
[2022-10-10] MEDS: ASPIRIN COATED 81 MG TABLET.EC PO SCH (09:33)
[2022-10-10] MEDS: CLOPIDOGREL BISULFATE 75 MG TABLET (FP) PO SCH (09:33)
[2022-10-10] MEDS: VALSARTAN 160 MG TABLET PO SCH (09:33)
[2022-10-10] MEDS: amLODIPine BESYLATE 10 MG TABLET (FP) PO SCH (09:33)
[2022-10-10] MEDS: ISOSORBIDE MONONITRATE 60 MG TAB.SR.24H (FP) PO SCH (09:33)
[2022-10-10] MEDS: HALOPERIDOL 0.5 MG TABLET PO SCH (09:33)
[2022-10-10] MEDS: ENOXAPARIN NA (PORCINE) 40 MG/0.4 ML DISP.SYRIN SQ SCH (10:08)
[2022-10-10 14:54] VITALS: BP 135/80; PULSE 78; TEMP 98
== END 2022-10-10 15:56 | DRG 57 ==
LOC: JER 15:08 → JERBED 18:52 → J4W 23:17 → J6S 10-03 15:33
PROVIDERS: ADMIT Internal Medicine; ATTEND Internal Medicine
DX: G25.5 Other chorea (principal); G93.49 Other encephalopathy; N39.0 Urinary tract infection, site not specified; I50.32 Chronic diastolic (congestive) heart failure; I16.0 Hypertensive urgency; I25.10 Atherosclerotic heart disease of native coronary artery without angina pectoris; E78.5 Hyperlipidemia, unspecified; E11.9 Type 2 diabetes mellitus without complications; F41.9 Anxiety disorder, unspecified; R07.89 Other chest pain; F12.10 Cannabis abuse, uncomplicated; E87.6 Hypokalemia; E11.65 Type 2 diabetes mellitus with hyperglycemia; I11.0 Hypertensive heart disease with heart failure; Z95.1 Presence of aortocoronary bypass graft; E66.9 Obesity, unspecified; Z68.31 Body mass index [BMI] 31.0-31.9, adult
CPT/HCPCS: 0241U-QW; 36415; 70450-TC; 70551-TC; 71045-TC-FY; 80053; 80307; 82390; 82607; 82962; 83655; 83735; 83825; 84100; 84484; 85025; 85027; 85610; 85730; 86038; 87086; 87186; 93005; 93010; 97116-GP; 97161-GP; 99285-25; C9803-CS; U0003; U0005

== ENCOUNTER 2022-11-05 13:08 | Observation (INO) | payer OTHER ==
[2022-11-05 17:06] LABS: BASO % 0.7 % (0-2.0); EOS % 4.4 % (0-4.5); HEMATOCRIT 34.6 % (32.4-45.2); HEMOGLOBIN 12.1 GM/dL (10.7-15.3); LYMPH % 33.6 % (8-40); MCH 30.6 pg (25.7-33.7); MEAN CELL VOLUME 87.5 fl (80-96); MEAN PLT VOLUME 7.7 fl (7.5-11.1); MONO % 7.1 % (3.8-10.2); NEUT % 54.2 % (42.8-82.8); PLATELET COUNT 279 10^3/uL (134-434); RBC 3.95 M/mm3 (3.60-5.2); RDW 13.6 % (11.6-15.6); WHITE BLOOD COUNT 6.4 K/mm3 (4.0-10.0)
[2022-11-05 17:09] LABS: EPI CELLS 18 /uL (0-25.1); HYALINE CASTS 1 /uL (0-3.1); PH,URINE 5.5 (5.0-8.0); URINE APPEARANCE CLEAR; URINE BACTERIA >9,000 /uL (0-1359); URINE BILIRUBIN NEGATIVE (NEGATIVE); URINE COLOR YELLOW; URINE GLUCOSE (UA) NEGATIVE (NEGATIVE); URINE KETONE NEGATIVE (NEGATIVE); URINE LEUK ESTERASE 3+ (NEGATIVE); URINE NITRITE POSITIVE (NEGATIVE); URINE PROTEIN TRACE (NEGATIVE); URINE RBC 15 /uL (0-23.9); URINE WBC 325 /uL (0-25.8)
[2022-11-05 17:12] LABS: INR 1.02 (0.83-1.09); PROTHROMBIN TIME (PATIENT) 11.7 SEC (9.7-13.0)
[2022-11-05 17:15] LABS: ACTIVATED PTT 41.6 SECONDS (25.2-36.5)
[2022-11-05 17:21] LABS: BLOOD UREA NITROGEN 24.7 mg/dL (7-18); CALCIUM 10.2 mg/dL (8.5-10.1)
[2022-11-05 17:22] LABS: ALBUMIN 3.9 g/dl (3.4-5.0)
[2022-11-05 17:24] LABS: CREATININE 0.9 mg/dL (0.55-1.3)
[2022-11-05 17:26] LABS: BILIRUBIN,TOTAL 0.7 mg/dL (0.2-1); TOT PROT 7.1 g/dl (6.4-8.2)
[2022-11-05] MEDS ORDERED: CEFTRIAXONE 1 GM in DEXTROSE 5%-WATER - 100 ML IVPB ONE (17:59)
[2022-11-05] MEDS ORDERED: CEFTRIAXONE 1 GM/50 ML BAG ONE (18:33)
[2022-11-05] MEDS ORDERED: HEPARIN NA (PORCINE) 5,000 UNITS/ML 1ML VIAL ONE (22:19)
[2022-11-05] MEDS ORDERED: ATORVASTATIN CA 80 MG TABLET (FP) ONE (22:19)
[2022-11-05] MEDS ORDERED: GABAPENTIN 300 MG CAPSULE ONE (22:19)
[2022-11-05] MEDS: ATORVASTATIN CA 80 MG TABLET (FP) PO SCH (22:26)
[2022-11-05] MEDS: HEPARIN NA (PORCINE) 5,000 UNITS/ML 1ML VIAL SQ SCH (22:26)
[2022-11-05] MEDS: GABAPENTIN 300 MG CAPSULE PO SCH (22:27)
[2022-11-06 04:40] VITALS: BMI 28.7
[2022-11-06] MEDS: GABAPENTIN 300 MG CAPSULE PO SCH ×3 (06:44→22:10)
[2022-11-06] MEDS: metFORMIN HCL 500 MG TABLET (FP) PO SCH ×2 (06:44→17:10)
[2022-11-06 09:44] LABS: BASO % 0.7 % (0-2.0); EOS % 4.1 % (0-4.5); HEMATOCRIT 34.2 % (32.4-45.2); HEMOGLOBIN 11.6 GM/dL (10.7-15.3); LYMPH % 29.4 % (8-40); MCH 29.5 pg (25.7-33.7); MEAN CELL VOLUME 86.8 fl (80-96); MONO % 8.5 % (3.8-10.2); NEUT % 57.3 % (42.8-82.8); PLATELET COUNT 251 10^3/uL (134-434); RBC 3.94 M/mm3 (3.60-5.2); RDW 13.3 % (11.6-15.6); WHITE BLOOD COUNT 5.7 K/mm3 (4.0-10.0)
[2022-11-06 10:17] LABS: CALCIUM 9.7 mg/dL (8.5-10.1)
[2022-11-06 10:18] LABS: ALBUMIN 3.3 g/dl (3.4-5.0)
[2022-11-06 10:20] LABS: CREATININE 0.8 mg/dL (0.55-1.3); TOT PROT 6.2 g/dl (6.4-8.2)
[2022-11-06 10:24] LABS: BILIRUBIN,TOTAL 0.8 mg/dL (0.2-1)
[2022-11-06] MEDS: CEFTRIAXONE 1 GM in DEXTROSE 5%-WATER - 50 ML IVPB SCH ×3 (10:42→16:23)
[2022-11-06] MEDS: ISOSORBIDE MONONITRATE 60 MG TAB.SR.24H (FP) PO SCH (10:43)
[2022-11-06] MEDS: HEPARIN NA (PORCINE) 5,000 UNITS/ML 1ML VIAL SQ SCH ×2 (10:43→22:10)
[2022-11-06] MEDS: ASPIRIN 81 MG CHEWABLE TABLETS PO SCH (10:43)
[2022-11-06] MEDS: amLODIPine BESYLATE 10 MG TABLET (FP) PO SCH (10:43)
[2022-11-06] MEDS: CLOPIDOGREL BISULFATE 75 MG TABLET (FP) PO SCH (10:43)
[2022-11-06] MEDS ORDERED: POTASSIUM CHLORIDE TABS 20 MEQ TABLET.ER (FP) PO ONE ×2 (15:01→17:15)
[2022-11-06] MEDS: ATORVASTATIN CA 80 MG TABLET (FP) PO SCH (22:10)
[2022-11-06] MEDS: INSULIN SLIDING SCALE (NOVOLOG) 1 VIAL SQ SCH (22:21)
[2022-11-07] MEDS: INSULIN SLIDING SCALE (NOVOLOG) 1 VIAL SQ SCH ×4 (06:56→22:34)
[2022-11-07] MEDS: GABAPENTIN 300 MG CAPSULE PO SCH ×3 (06:56→22:30)
[2022-11-07] MEDS: metFORMIN HCL 500 MG TABLET (FP) PO SCH ×2 (06:56→17:03)
[2022-11-07 09:50] LABS: BASO % 0.6 % (0-2.0); EOS % 4.3 % (0-4.5); HEMATOCRIT 32.7 % (32.4-45.2); HEMOGLOBIN 11.3 GM/dL (10.7-15.3); MCH 30.3 pg (25.7-33.7); MCHC 34.7 g/dl (32.0-36.0); MEAN CELL VOLUME 87.2 fl (80-96); MEAN PLT VOLUME 8.3 fl (7.5-11.1); MONO % 7.5 % (3.8-10.2); NEUT % 51.6 % (42.8-82.8); PLATELET COUNT 266 10^3/uL (134-434); RBC 3.75 M/mm3 (3.60-5.2); RDW 13.5 % (11.6-15.6); WHITE BLOOD COUNT 5.7 K/mm3 (4.0-10.0)
[2022-11-07] MEDS: FUROSEMIDE 20 MG TABLET (FP) PO SCH (10:13)
[2022-11-07] MEDS: CLOPIDOGREL BISULFATE 75 MG TABLET (FP) PO SCH (10:13)
[2022-11-07] MEDS: HEPARIN NA (PORCINE) 5,000 UNITS/ML 1ML VIAL SQ SCH ×2 (10:13→22:30)
[2022-11-07] MEDS: ASPIRIN 81 MG CHEWABLE TABLETS PO SCH (10:13)
[2022-11-07] MEDS: amLODIPine BESYLATE 10 MG TABLET (FP) PO SCH (10:13)
[2022-11-07] MEDS: ISOSORBIDE MONONITRATE 60 MG TAB.SR.24H (FP) PO SCH (10:13)
[2022-11-07] MEDS: CEFTRIAXONE 1 GM in DEXTROSE 5%-WATER - 50 ML IVPB SCH (10:14)
[2022-11-07 10:57] LABS: ALBUMIN 3.3 g/dl (3.4-5.0); BLOOD UREA NITROGEN 17.5 mg/dL (7-18); CALCIUM 9.7 mg/dL (8.5-10.1)
[2022-11-07 11:01] LABS: CREATININE 0.9 mg/dL (0.55-1.3)
[2022-11-07 11:03] LABS: BILIRUBIN,TOTAL 0.8 mg/dL (0.2-1); TOT PROT 6.2 g/dl (6.4-8.2)
[2022-11-07] MEDS ORDERED: INSULIN (NOVOLOG) ASPART 100 UNITS/ML 10ML VIAL ONE (12:43)
[2022-11-07] MEDS: ATORVASTATIN CA 80 MG TABLET (FP) PO SCH (22:29)
[2022-11-08] MEDS: metFORMIN HCL 500 MG TABLET (FP) PO SCH ×2 (06:20→18:09)
[2022-11-08] MEDS: GABAPENTIN 300 MG CAPSULE PO SCH ×3 (06:20→23:11)
[2022-11-08] MEDS: INSULIN SLIDING SCALE (NOVOLOG) 1 VIAL SQ SCH ×4 (06:24→23:02)
[2022-11-08] MEDS: CEFTRIAXONE 1 GM in DEXTROSE 5%-WATER - 50 ML IVPB SCH (10:56)
[2022-11-08] MEDS: FUROSEMIDE 20 MG TABLET (FP) PO SCH (10:57)
[2022-11-08] MEDS: ISOSORBIDE MONONITRATE 60 MG TAB.SR.24H (FP) PO SCH (10:57)
[2022-11-08] MEDS: ASPIRIN 81 MG CHEWABLE TABLETS PO SCH (10:57)
[2022-11-08] MEDS: CLOPIDOGREL BISULFATE 75 MG TABLET (FP) PO SCH (10:57)
[2022-11-08] MEDS: amLODIPine BESYLATE 10 MG TABLET (FP) PO SCH (10:57)
[2022-11-08] MEDS: HEPARIN NA (PORCINE) 5,000 UNITS/ML 1ML VIAL SQ SCH ×2 (10:57→23:00)
[2022-11-08 20:48] LABS: GAMMA GLUTAMYL TRANSPEPTIDASE 14 U/L (5-85)
[2022-11-08] MEDS: ATORVASTATIN CA 80 MG TABLET (FP) PO SCH (23:00)
[2022-11-08] MEDS: risperiDONE 0.5 MG TABLET PO SCH (23:02)
[2022-11-09] MEDS: metFORMIN HCL 500 MG TABLET (FP) PO SCH ×2 (07:00→16:34)
[2022-11-09] MEDS: INSULIN SLIDING SCALE (NOVOLOG) 1 VIAL SQ SCH ×4 (07:01→22:32)
[2022-11-09] MEDS: ASPIRIN 81 MG CHEWABLE TABLETS PO SCH (09:51)
[2022-11-09] MEDS: FUROSEMIDE 20 MG TABLET (FP) PO SCH (09:52)
[2022-11-09] MEDS: ISOSORBIDE MONONITRATE 60 MG TAB.SR.24H (FP) PO SCH (09:52)
[2022-11-09] MEDS: GABAPENTIN 300 MG CAPSULE PO SCH ×2 (09:52→22:22)
[2022-11-09] MEDS: amLODIPine BESYLATE 10 MG TABLET (FP) PO SCH (09:52)
[2022-11-09] MEDS: risperiDONE 0.5 MG TABLET PO SCH ×2 (09:53→22:21)
[2022-11-09] MEDS: CLOPIDOGREL BISULFATE 75 MG TABLET (FP) PO SCH (09:53)
[2022-11-09] MEDS: HEPARIN NA (PORCINE) 5,000 UNITS/ML 1ML VIAL SQ SCH ×2 (09:54→22:22)
[2022-11-09] MEDS: CEFTRIAXONE 1 GM in DEXTROSE 5%-WATER - 50 ML IVPB SCH (09:54)
[2022-11-09] MEDS: ATORVASTATIN CA 80 MG TABLET (FP) PO SCH (22:21)
[2022-11-10] MEDS: metFORMIN HCL 500 MG TABLET (FP) PO SCH ×2 (06:33→18:20)
[2022-11-10] MEDS: INSULIN SLIDING SCALE (NOVOLOG) 1 VIAL SQ SCH ×4 (06:59→22:48)
[2022-11-10 08:30] LABS: BASO % 0.6 % (0-2.0); EOS % 5.8 % (0-4.5); HEMATOCRIT 32.7 % (32.4-45.2); HEMOGLOBIN 11.2 GM/dL (10.7-15.3); MCH 29.7 pg (25.7-33.7); MCHC 34.1 g/dl (32.0-36.0); MEAN CELL VOLUME 87.2 fl (80-96); MEAN PLT VOLUME 7.8 fl (7.5-11.1); NEUT % 51.6 % (42.8-82.8); PLATELET COUNT 252 10^3/uL (134-434); RBC 3.76 M/mm3 (3.60-5.2); RDW 13.3 % (11.6-15.6); WHITE BLOOD COUNT 5.8 K/mm3 (4.0-10.0)
[2022-11-10 08:54] LABS: BLOOD UREA NITROGEN 17.7 mg/dL (7-18)
[2022-11-10] MEDS ORDERED: risperiDONE 0.5 MG TABLET PO SCH (08:54)
[2022-11-10 08:57] LABS: ALBUMIN 3.1 g/dl (3.4-5.0); CALCIUM 9.9 mg/dL (8.5-10.1); CREATININE 0.9 mg/dL (0.55-1.3)
[2022-11-10 09:00] LABS: BILIRUBIN,TOTAL 0.7 mg/dL (0.2-1)
[2022-11-10] MEDS: ASPIRIN 81 MG CHEWABLE TABLETS PO SCH (10:59)
[2022-11-10] MEDS: CEFTRIAXONE 1 GM in DEXTROSE 5%-WATER - 50 ML IVPB SCH (10:59)
[2022-11-10] MEDS: CLOPIDOGREL BISULFATE 75 MG TABLET (FP) PO SCH (10:59)
[2022-11-10] MEDS: ISOSORBIDE MONONITRATE 60 MG TAB.SR.24H (FP) PO SCH (11:00)
[2022-11-10] MEDS: FUROSEMIDE 20 MG TABLET (FP) PO SCH (11:00)
[2022-11-10] MEDS: HEPARIN NA (PORCINE) 5,000 UNITS/ML 1ML VIAL SQ SCH ×2 (11:00→22:42)
[2022-11-10] MEDS: amLODIPine BESYLATE 10 MG TABLET (FP) PO SCH (11:00)
[2022-11-10] MEDS: risperiDONE 0.5 MG TABLET PO SCH ×2 (11:01→22:42)
[2022-11-10] MEDS ORDERED: POTASSIUM CHLORIDE TABS 20 MEQ TABLET.ER (FP) PO ONE (14:45)
[2022-11-10] MEDS: ATORVASTATIN CA 80 MG TABLET (FP) PO SCH (22:42)
[2022-11-11 00:06] LABS: CARCINOEMBRYONIC ANTIGEN 4.1 ng/mL (0.0-4.7); MYOGLOBIN SERUM 27 ng/mL (25-58)
[2022-11-11] MEDS: metFORMIN HCL 500 MG TABLET (FP) PO SCH ×2 (06:32→17:10)
[2022-11-11] MEDS: INSULIN SLIDING SCALE (NOVOLOG) 1 VIAL SQ SCH ×3 (06:37→17:08)
[2022-11-11] MEDS: CEFTRIAXONE 1 GM in DEXTROSE 5%-WATER - 50 ML IVPB SCH (11:11)
[2022-11-11] MEDS: ISOSORBIDE MONONITRATE 60 MG TAB.SR.24H (FP) PO SCH (11:12)
[2022-11-11] MEDS: ASPIRIN 81 MG CHEWABLE TABLETS PO SCH (11:12)
[2022-11-11] MEDS: FUROSEMIDE 20 MG TABLET (FP) PO SCH (11:12)
[2022-11-11] MEDS: CLOPIDOGREL BISULFATE 75 MG TABLET (FP) PO SCH (11:13)
[2022-11-11] MEDS: HEPARIN NA (PORCINE) 5,000 UNITS/ML 1ML VIAL SQ SCH (11:13)
[2022-11-11] MEDS: risperiDONE 0.5 MG TABLET PO SCH (11:14)
[2022-11-11] MEDS: amLODIPine BESYLATE 10 MG TABLET (FP) PO SCH (11:14)
[2022-11-11 15:02] VITALS: BP 124/60; PULSE 71; RESP 18; TEMP 99
[2022-11-12 19:07] LABS: ATYPICAL pANCA <1:20 titer (Neg:<1:20); C-ANCA <1:20 titer (Neg:<1:20)
== END 2022-11-11 17:00 ==
LOC: JER 13:08 → UNDOADMOB 18:38 → INTOOBSV 18:38 → JERBED 18:38 → J7W 11-06 04:06 → JERBED 11-06 14:31 → J7W 11-06 14:31
PROVIDERS: ADMIT Internal Medicine; ATTEND Internal Medicine
PROC: 3E03329 Introduction of Other Anti-infective into Peripheral Vein, Percutaneous Approach (ICD-10-PCS; principal; 2022-11-06)
PROC: 3E023GC Introduction of Other Therapeutic Substance into Muscle, Percutaneous Approach (ICD-10-PCS; 2022-11-06)
DX: N39.0 Urinary tract infection, site not specified (principal); R29.6 Repeated falls; E11.9 Type 2 diabetes mellitus without complications; I10 Essential (primary) hypertension; E78.5 Hyperlipidemia, unspecified; Z95.1 Presence of aortocoronary bypass graft; G25.5 Other chorea
CPT/HCPCS: 0241U-QW; 36415; 70450-TC; 70551-TC; 71045-TC-FY; 72125-TC; 80053; 81003; 82085; 82140; 82378; 82525; 82595; 82962; 82977; 83036; 83516; 83520; 83874; 84155; 84165; 84484; 84630; 85025; 85610; 85651; 85730; 86038; 86140; 86256; 86850; 86900; 86901; 87086; 87186; 87536; 93005; 93010; 96365; 96366; 96372; 97116-GP; 97162-GP; 99285-25; C9803-CS; G0378; J1644; U0003; U0005

== ENCOUNTER 2025-04-07 19:59 | Inpatient (IN) | payer OTHER ==
[2025-04-07] MEDS ORDERED: ACETAMINOPHEN INJECTION 100 ML ONE (20:47)
[2025-04-07 21:28] LABS: HEMATOCRIT 35.7 % (34.1-44.9); HEMOGLOBIN 11.8 g/dL (11.2-15.7); MCHC 33.1 g/dl (32.2-35.5); MEAN CELL VOLUME 91.1 fl (79.4-94.8); MEAN PLT VOLUME 9.5 fl (9.4-12.3); PLATELET COUNT 237 x10^3/uL (182-369); RDW 12.3 % (12.4-16.6)
[2025-04-07 21:30] LABS: INR 0.98 (0.83-1.09); PROTHROMBIN TIME (PATIENT) 10.8 SEC (9.7-13.0)
[2025-04-07 21:33] LABS: ACTIVATED PTT 36.1 SECONDS (25.2-36.5)
[2025-04-07 21:39] LABS: EPI CELLS 10 /uL (0-25.1); HYALINE CASTS 0 /uL (0-3.1); PH,URINE 6.5 (5.0-8.0); URINE APPEARANCE CLEAR; URINE BACTERIA 101 /uL (0-1359); URINE BILIRUBIN NEGATIVE (NEGATIVE); URINE COLOR YELLOW; URINE GLUCOSE (UA) NEGATIVE (NEGATIVE); URINE KETONE NEGATIVE (NEGATIVE); URINE LEUK ESTERASE 2+ (NEGATIVE); URINE NITRITE NEGATIVE (NEGATIVE); URINE PROTEIN NEGATIVE (NEGATIVE); URINE RBC 7 /uL (0-23.9); URINE UROBILINOGEN 0.2 mg/dL (0.2-1.0); URINE WBC 198 /uL (0-25.8)
[2025-04-07] MEDS: SODIUM CHLORIDE 0.9% 500 ML INFUS.BAG IV ONE (21:41)
[2025-04-07 21:43] LABS: POTASSIUM 4.2 mmol/L (3.5-5.1)
[2025-04-07 21:45] LABS: ALBUMIN 3.9 g/dl (3.4-5.0); BLOOD UREA NITROGEN 26.4 mg/dL (7-18)
[2025-04-07 21:48] LABS: CREATININE 1.1 mg/dL (0.55-1.3)
[2025-04-07] MEDS: ACETAMINOPHEN 1000 MG/100 ML BAG IVPB ONE (21:48)
[2025-04-07 21:50] LABS: BILIRUBIN,TOTAL 0.5 mg/dL (0.2-1); TOT PROT 7.1 g/dl (6.4-8.2)
[2025-04-07] MEDS ORDERED: hydrALAZINE HCL 20 MG/ML VIAL ONE (23:28)
[2025-04-07] MEDS ORDERED: CEPHALEXIN MONOHYDRATE 500 MG CAPSULE (UD) ONE (23:29)
[2025-04-07] MEDS: hydrALAZINE HCL 20 MG/ML VIAL IVPUSH ONE (23:38)
[2025-04-07] MEDS: CEPHALEXIN MONOHYDRATE 500 MG CAPSULE (UD) PO ONE (23:38)
[2025-04-08] MEDS ORDERED: MAGNESIUM CITRATE 300 ML BOTTLE ONE (03:36)
[2025-04-08] MEDS: MAGNESIUM CITRATE 300 ML BOTTLE PO ONE (03:47)
[2025-04-08 05:04] VITALS: BMI 23.8
[2025-04-08] MEDS: INSULIN ASPART SLIDING SCALE (NOVOLOG) 1 VIAL SQ SCH (06:17)
[2025-04-08] MEDS: CLOPIDOGREL BISULFATE 75 MG TABLET (FP) PO SCH (09:16)
[2025-04-08] MEDS: FUROSEMIDE 20 MG TABLET (FP) PO SCH (09:16)
[2025-04-08] MEDS: hydrALAZINE HCL 25 MG TABLET (FP) PO SCH (09:16)
[2025-04-08] MEDS ORDERED: SERTRALINE HCL 25 MG TABLET (FP) PO SCH (10:00)
[2025-04-08 10:12] LABS: ABSOLUTE IMMATURE GRANULOCYTES 0.01 x10^3/uL (0.0-0.031); BASOPHILS # 0.03 x10^3/uL (0.01-0.08); EOSINOPHIL % 4.3 % (0.7-5.8); EOSINOPHILS # 0.23 x10^3/uL (0.04-0.36); HEMATOCRIT 37.1 % (34.1-44.9); HEMOGLOBIN 12.4 g/dL (11.2-15.7); MCHC 33.4 g/dl (32.2-35.5); MEAN CELL VOLUME 90.9 fl (79.4-94.8); MEAN PLT VOLUME 9.4 fl (9.4-12.3); MONOCYTE # 0.45 x10^3/uL (0.24-0.86); MONOCYTE % 8.4 % (4.7-12.5); PLATELET COUNT 251 x10^3/uL (182-369); RDW 12.4 % (12.4-16.6)
[2025-04-08 10:35] LABS: POTASSIUM 3.5 mmol/L (3.5-5.1)
[2025-04-08 10:36] LABS: BLOOD UREA NITROGEN 21.9 mg/dL (7-18); CALCIUM 10.3 mg/dL (8.5-10.1)
[2025-04-08] MEDS: ISOSORBIDE MONONITRATE 60 MG TAB.SR.24H (FP) PO SCH (11:03)
[2025-04-08] MEDS: amLODIPine BESYLATE 10 MG TABLET (FP) PO SCH (11:03)
[2025-04-08] MEDS: ATORVASTATIN CA 40 MG TABLET (FP) PO SCH (21:19)
[2025-04-08] MEDS: LACTULOSE 20 GM/30 ML UDC (FOR ORAL USE ONLY) PO PRN (21:19)
[2025-04-08] MEDS: GABAPENTIN 300 MG CAPSULE PO SCH (21:20)
[2025-04-08] MEDS: POLYETHYLENE GLYCOL (HEALTHYLAX) 3350 17 GM PACKET PO SCH (21:20)
[2025-04-09 06:38] LABS: ABSOLUTE IMMATURE GRANULOCYTES 0.01 x10^3/uL (0.0-0.031); BASOPHILS # 0.03 x10^3/uL (0.01-0.08); EOSINOPHIL % 4.2 % (0.7-5.8); EOSINOPHILS # 0.19 x10^3/uL (0.04-0.36); HEMATOCRIT 30.1 % (34.1-44.9); HEMOGLOBIN 9.9 g/dL (11.2-15.7); MCHC 32.9 g/dl (32.2-35.5); MEAN CELL VOLUME 91.8 fl (79.4-94.8); MEAN PLT VOLUME 9.4 fl (9.4-12.3); MONOCYTE # 0.39 x10^3/uL (0.24-0.86); MONOCYTE % 8.5 % (4.7-12.5); PLATELET COUNT 198 x10^3/uL (182-369); RDW 12.8 % (12.4-16.6)
[2025-04-09 06:59] LABS: POTASSIUM 3.9 mmol/L (3.5-5.1)
[2025-04-09 07:04] LABS: ALBUMIN 3.3 g/dl (3.4-5.0); BLOOD UREA NITROGEN 17.1 mg/dL (7-18)
[2025-04-09 07:08] LABS: CREATININE 1.1 mg/dL (0.55-1.3)
[2025-04-09 07:09] LABS: BILIRUBIN,TOTAL 0.5 mg/dL (0.2-1); TOT PROT 5.7 g/dl (6.4-8.2)
[2025-04-09] MEDS: ASPIRIN 81 MG CHEWABLE TABLETS PO SCH (09:18)
[2025-04-09] MEDS: SENNOSIDES 8.6MG TABLET (FP) PO PRN (12:37)
[2025-04-11 11:03] LABS: ABSOLUTE IMMATURE GRANULOCYTES 0.01 x10^3/uL (0.0-0.031); BASOPHILS # 0.04 x10^3/uL (0.01-0.08); EOSINOPHIL % 2.9 % (0.7-5.8); EOSINOPHILS # 0.14 x10^3/uL (0.04-0.36); HEMATOCRIT 30.3 % (34.1-44.9); HEMOGLOBIN 10.1 g/dL (11.2-15.7); MCHC 33.3 g/dl (32.2-35.5); MEAN CELL VOLUME 91.5 fl (79.4-94.8); MONOCYTE # 0.43 x10^3/uL (0.24-0.86); MONOCYTE % 8.9 % (4.7-12.5); PLATELET COUNT 214 x10^3/uL (182-369); RDW 12.4 % (12.4-16.6)
[2025-04-11 11:18] LABS: POTASSIUM 3.8 mmol/L (3.5-5.1)
[2025-04-11 11:21] LABS: CALCIUM 9.7 mg/dL (8.5-10.1)
[2025-04-11 11:22] LABS: ALBUMIN 3.2 g/dl (3.4-5.0); BLOOD UREA NITROGEN 15.3 mg/dL (7-18)
[2025-04-11 11:25] LABS: CREATININE 1.2 mg/dL (0.55-1.3)
[2025-04-11 11:27] LABS: BILIRUBIN,TOTAL 0.5 mg/dL (0.2-1)
[2025-04-11] MEDS: PEG 3350/NA SULF BICARB CL/KCL 4000 ML SOLN.RECON PO ONE (13:45)
[2025-04-11] MEDS: LACTULOSE 20 GM/30 ML UDC (FOR ORAL USE ONLY) PO SCH (21:59)
[2025-04-12] MEDS: POLYETHYLENE GLYCOL (HEALTHYLAX) 3350 17 GM PACKET PO SCH (09:51)
[2025-04-12 15:22] VITALS: RESP 18
[2025-04-12] MEDS: POLYETHYLENE GLYCOL 3350 255 GM BTL PO ONE (18:06)
[2025-04-12] MEDS: hydrALAZINE HCL 50 MG TABLET (FP) PO SCH (22:49)
[2025-04-13 01:29] VITALS: TEMP 98.5
[2025-04-13 08:14] LABS: ABSOLUTE IMMATURE GRANULOCYTES 0.01 x10^3/uL (0.0-0.031); BASOPHILS # 0.02 x10^3/uL (0.01-0.08); HEMOGLOBIN 11.3 g/dL (11.2-15.7); RDW 12.3 % (12.4-16.6)
[2025-04-13 08:16] LABS: EOSINOPHIL % 3.9 % (0.7-5.8); EOSINOPHILS # 0.18 x10^3/uL (0.04-0.36); MCHC 32.3 g/dl (32.2-35.5); MEAN CELL VOLUME 92.6 fl (79.4-94.8); MEAN PLT VOLUME 10.2 fl (9.4-12.3); MONOCYTE # 0.39 x10^3/uL (0.24-0.86); MONOCYTE % 8.4 % (4.7-12.5); PLATELET COUNT 204 x10^3/uL (182-369)
[2025-04-13 08:42] LABS: ALBUMIN 3.3 g/dl (3.4-5.0); CALCIUM 9.8 mg/dL (8.5-10.1)
[2025-04-13 08:43] LABS: BLOOD UREA NITROGEN 16.6 mg/dL (7-18)
[2025-04-13 08:45] LABS: CREATININE 1.1 mg/dL (0.55-1.3)
[2025-04-13 08:46] LABS: BILIRUBIN,TOTAL 0.5 mg/dL (0.2-1); TOT PROT 6.2 g/dl (6.4-8.2)
[2025-04-13 10:12] VITALS: BP 131/58; PULSE 87
== END 2025-04-13 12:06 | DRG 392 ==
LOC: JER 19:59 → JERBED 04-08 00:34 → J4W 04-08 04:56 → OBSVTOIN 04-08 10:57 → J4W 04-08 16:16
PROVIDERS: ADMIT Internal Medicine; ATTEND Internal Medicine
DX: K59.00 Constipation, unspecified (principal); I50.32 Chronic diastolic (congestive) heart failure; I16.0 Hypertensive urgency; I25.10 Atherosclerotic heart disease of native coronary artery without angina pectoris; E78.5 Hyperlipidemia, unspecified; E11.9 Type 2 diabetes mellitus without complications; G25.5 Other chorea; K20.90 Esophagitis, unspecified without bleeding; F03.90 Unspecified dementia, unspecified severity, without behavioral disturbance, psychotic disturbance, mood disturbance, and anxiety; I11.0 Hypertensive heart disease with heart failure; Z95.1 Presence of aortocoronary bypass graft
CPT/HCPCS: 36415; 74021-TC-FY; 74177-TC; 80048; 80053; 81003; 82962; 83036; 83605; 85025; 85027; 85610; 85730; 86850; 86900; 86901; 87086; 87635; 93005; 93010; 93306-TC; 97116-GP; 97162-GP; 99285-25; G0378; J0131; Q9967